=== PATIENT | male | born 1940 | race Caucasian/White ===

== ENCOUNTER → 2018-02-10 09:31 | Outpatient (CLI) | payer MEDICARE, SELFPAY | PROVIDERS: PCP Emergency Medicine; Visit Provider Orthopaedic Surgery | DX: M17.11 Unilateral primary osteoarthritis, right knee (principal) | CPT/HCPCS: 20610; 99213; J1040 ==

== ENCOUNTER 2018-03-18 12:12 | Outpatient (CLI) | payer MEDICARE, SELFPAY ==
[2018-03-18 13:23] LABS: INR 3.1 (1.0-3.5); Prothrombin Time 29.4 sec (9.3-10.8)
== END 2018-03-18 12:32 ==
PROVIDERS: PCP Emergency Medicine; Visit Provider Emergency Medicine
DX: I48.91 Unspecified atrial fibrillation (principal); Z79.01 Long term (current) use of anticoagulants
CPT/HCPCS: 36415; 85610

== ENCOUNTER 2018-04-25 09:17 | Outpatient (CLI) | payer MEDICARE, SELFPAY ==
[2018-04-25 13:57] LABS: INR 3.5 (1.0-3.5); Prothrombin Time 32.3 sec (9.3-10.8)
== END 2018-04-25 09:37 ==
PROVIDERS: PCP Emergency Medicine; Visit Provider Emergency Medicine
DX: I48.91 Unspecified atrial fibrillation (principal); Z79.01 Long term (current) use of anticoagulants
CPT/HCPCS: 36415; 85610

== ENCOUNTER 2018-05-02 01:54 | Outpatient (CLI) | payer MEDICARE, SELFPAY ==
[2018-05-02 11:15] LABS: INR 2.4 (1.0-3.5); Prothrombin Time 22.4 sec (9.3-10.8)
== END 2018-05-02 02:14 ==
PROVIDERS: PCP Emergency Medicine; Visit Provider Emergency Medicine
DX: I48.91 Unspecified atrial fibrillation (principal); Z79.01 Long term (current) use of anticoagulants
CPT/HCPCS: 36415; 85610

== ENCOUNTER → 2018-05-12 08:49 | Outpatient (BNVA) | payer MEDICARE, SELFPAY | PROVIDERS: PCP Emergency Medicine; Visit Provider Orthopaedic Surgery | DX: M17.11 Unilateral primary osteoarthritis, right knee (principal) | CPT/HCPCS: 20610; 99211; 99213; J1040 ==

== ENCOUNTER 2018-05-30 01:27 | Outpatient (CLI) | payer MEDICARE, SELFPAY ==
[2018-05-30 11:21] LABS: INR 1.4 (1.0-3.5); Prothrombin Time 13.7 sec (9.3-10.8)
== END 2018-05-30 01:47 ==
PROVIDERS: PCP Emergency Medicine; Visit Provider Emergency Medicine
DX: I48.91 Unspecified atrial fibrillation (principal); Z79.01 Long term (current) use of anticoagulants
CPT/HCPCS: 36415; 85610

== ENCOUNTER 2018-06-06 02:32 | Outpatient (CLI) | payer MEDICARE, SELFPAY ==
[2018-06-06 13:48] LABS: INR 1.3 (1.0-3.5); Prothrombin Time 12.8 sec (9.3-10.8)
== END 2018-06-06 02:52 ==
PROVIDERS: PCP Emergency Medicine; Visit Provider Emergency Medicine
DX: I48.91 Unspecified atrial fibrillation (principal); Z79.01 Long term (current) use of anticoagulants
CPT/HCPCS: 36415; 85610

== ENCOUNTER 2018-06-10 02:13 | Outpatient (CLI) | payer MEDICARE, SELFPAY ==
[2018-06-10 12:45] LABS: INR 2.7 (1.0-3.5); Prothrombin Time 27.5 sec (9.3-11.0)
== END 2018-06-10 02:33 ==
PROVIDERS: PCP Emergency Medicine; Visit Provider Emergency Medicine
DX: I48.91 Unspecified atrial fibrillation (principal); Z79.01 Long term (current) use of anticoagulants
CPT/HCPCS: 36415; 85610

== ENCOUNTER 2018-07-05 02:05 | Outpatient (CLI) | payer MEDICARE, SELFPAY | END 2018-07-05 02:25 | PROVIDERS: PCP Emergency Medicine; Visit Provider Emergency Medicine | DX: I48.91 Unspecified atrial fibrillation (principal); Z79.01 Long term (current) use of anticoagulants | CPT/HCPCS: 36415; 85610 ==

== ENCOUNTER 2018-07-08 01:01 | Outpatient (CLI) | payer MEDICARE, SELFPAY ==
[2018-07-08 11:45] LABS: Prothrombin Time 12.5 sec (9.3-11.0)
[2018-07-08 11:58] LABS: INR 1.2 (0.9-1.1)
== END 2018-07-08 01:21 ==
PROVIDERS: PCP Emergency Medicine; Visit Provider Emergency Medicine
DX: I48.91 Unspecified atrial fibrillation (principal); Z79.01 Long term (current) use of anticoagulants
CPT/HCPCS: 36415; 85610

== ENCOUNTER 2018-07-15 01:37 | Outpatient (CLI) | payer MEDICARE, SELFPAY ==
[2018-07-15 13:03] LABS: INR 1.6 (0.9-1.1); Prothrombin Time 16.1 sec (9.3-11.0)
== END 2018-07-15 01:57 ==
PROVIDERS: PCP Emergency Medicine; Visit Provider Emergency Medicine
DX: I48.91 Unspecified atrial fibrillation (principal); Z79.01 Long term (current) use of anticoagulants
CPT/HCPCS: 36415; 85610

== ENCOUNTER 2018-07-22 01:13 | Outpatient (CLI) | payer MEDICARE, SELFPAY ==
[2018-07-22 12:02] LABS: Prothrombin Time 25.7 sec (9.3-11.0)
[2018-07-22 12:08] LABS: INR 2.5 (0.9-1.1)
== END 2018-07-22 01:33 ==
PROVIDERS: PCP Emergency Medicine; Visit Provider Emergency Medicine
DX: I48.91 Unspecified atrial fibrillation (principal); Z79.01 Long term (current) use of anticoagulants
CPT/HCPCS: 36415; 85610

== ENCOUNTER 2018-08-05 01:38 | Outpatient (CLI) | payer MEDICARE, SELFPAY ==
[2018-08-05 11:41] LABS: INR 3.3 (0.9-1.1); Prothrombin Time 33.9 sec (9.3-11.0)
== END 2018-08-05 01:58 ==
PROVIDERS: PCP Emergency Medicine; Visit Provider Emergency Medicine
DX: I48.91 Unspecified atrial fibrillation (principal); Z79.01 Long term (current) use of anticoagulants
CPT/HCPCS: 36415; 85610

== ENCOUNTER → 2018-08-11 13:20 | Outpatient (BNVA) | payer MEDICARE, SELFPAY | PROVIDERS: PCP Emergency Medicine; Referring Provider Emergency Medicine; Visit Provider Orthopaedic Surgery | DX: M17.11 Unilateral primary osteoarthritis, right knee (principal) | CPT/HCPCS: 20610; 99211; 99213; J1040 ==

== ENCOUNTER 2018-08-12 03:05 | Outpatient (CLI) | payer MEDICARE, SELFPAY | END 2018-08-12 03:25 | PROVIDERS: PCP Emergency Medicine; Visit Provider Emergency Medicine | DX: I48.91 Unspecified atrial fibrillation (principal); Z79.01 Long term (current) use of anticoagulants | CPT/HCPCS: 36415; 85610 ==

== ENCOUNTER 2018-09-09 02:25 | Outpatient (CLI) | payer MEDICARE, SELFPAY ==
[2018-09-09 13:41] LABS: INR 2.6 (0.9-1.1); Prothrombin Time 25.9 sec (9.3-11.0)
== END 2018-09-09 02:45 ==
PROVIDERS: PCP Emergency Medicine; Visit Provider Emergency Medicine
DX: I48.91 Unspecified atrial fibrillation (principal); Z79.01 Long term (current) use of anticoagulants
CPT/HCPCS: 36415; 85610

== ENCOUNTER 2018-10-10 01:49 | Outpatient (CLI) | payer MEDICARE, SELFPAY ==
[2018-10-10 12:38] LABS: INR 3.7 (0.9-1.1); Prothrombin Time 37.5 sec (9.3-11.0)
== END 2018-10-10 02:09 ==
PROVIDERS: PCP Emergency Medicine; Visit Provider Emergency Medicine
DX: I48.91 Unspecified atrial fibrillation (principal); Z79.01 Long term (current) use of anticoagulants
CPT/HCPCS: 36415; 85610

== ENCOUNTER 2018-10-17 01:56 | Outpatient (CLI) | payer MEDICARE, SELFPAY ==
[2018-10-17 11:39] LABS: INR 3.3 (0.9-1.1); Prothrombin Time 33.4 sec (9.3-11.0)
== END 2018-10-17 02:16 ==
PROVIDERS: PCP Emergency Medicine; Visit Provider Emergency Medicine
DX: I48.91 Unspecified atrial fibrillation (principal); Z79.01 Long term (current) use of anticoagulants
CPT/HCPCS: 36415; 85610

== ENCOUNTER 2018-10-24 02:21 | Outpatient (CLI) | payer MEDICARE, SELFPAY ==
[2018-10-24 11:39] LABS: INR 2.4 (0.9-1.1); Prothrombin Time 24.1 sec (9.3-11.0)
== END 2018-10-24 02:41 ==
PROVIDERS: PCP Emergency Medicine; Visit Provider Emergency Medicine
DX: I48.91 Unspecified atrial fibrillation (principal); Z79.01 Long term (current) use of anticoagulants
CPT/HCPCS: 36415; 85610

== ENCOUNTER 2018-11-07 01:23 | Outpatient (CLI) | payer MEDICARE, SELFPAY ==
[2018-11-07 11:13] LABS: INR 1.9 (0.9-1.1); Prothrombin Time 18.9 sec (9.3-11.0)
== END 2018-11-07 01:43 ==
PROVIDERS: PCP Emergency Medicine; Visit Provider Emergency Medicine
DX: I48.91 Unspecified atrial fibrillation (principal); Z79.01 Long term (current) use of anticoagulants
CPT/HCPCS: 36415; 85610

== ENCOUNTER → 2018-11-10 09:34 | Outpatient (BNVA) | payer MEDICARE, SELFPAY | PROVIDERS: PCP Emergency Medicine; Referring Provider Emergency Medicine; Visit Provider Orthopaedic Surgery | DX: M17.11 Unilateral primary osteoarthritis, right knee (principal) | CPT/HCPCS: 20610; 99211; 99212; J1040 ==

== ENCOUNTER 2018-11-22 02:34 | Outpatient (CLI) | payer MEDICARE, SELFPAY ==
[2018-11-22 11:27] LABS: INR 2.2 (0.9-1.1); Prothrombin Time 21.7 sec (9.3-11.0)
== END 2018-11-22 02:54 ==
PROVIDERS: PCP Emergency Medicine; Visit Provider Emergency Medicine
DX: I48.91 Unspecified atrial fibrillation (principal); Z79.01 Long term (current) use of anticoagulants
CPT/HCPCS: 36415; 85610

== ENCOUNTER 2018-12-01 11:15 | Outpatient (CLI) | payer MEDICARE, SELFPAY ==
[2018-12-01 12:02] VITALS: BP 129/78; PULSE 52; RESP 22; TEMP 37.5; O2SAT 96
[2018-12-01 12:13] LABS: INR 1.1 (0.9-1.1); Prothrombin Time 10.7 sec (9.3-11.0)
[2018-12-01] MEDS: Omnipaque 240 MG/ML 50 ML BTL IJ (13:14)
--- NOTE | 2018-12-01 13:15 | DI.RAD_ITS ---
SYMPTOMS/DIAGNOSIS: SACROILIAC JOINT DYSFUNCTION PAIN CLINIC: Fluoroscopy Time: 22.8 sec, 8.06 mGy. Fluoroscopy was utilized by Dr. Oro during the performance of a right sacroiliac joint injection. Please refer to the procedure report for complete details.
[2018-12-01] MEDS: methylPREDNISolone ACETATE 80 MG/ML VIAL IJ (13:16)
[2018-12-01 13:17] VITALS: BP 137/80; PULSE 69; RESP 15; O2SAT 98
--- NOTE | 2018-12-01 13:17 | PDOC.PAIN ---
Pain Clinic Procedure Note Current Active Problems Problem Status Onset Sacroiliac joint dysfunction of both sides Acute INTRA-ARTICULAR SI JOINT INJECTION JASWANT CASAREZ has been referred to the [facility] for intra-articular SI joint injection. COMMENTS: I did review the notes from our clinic (Ms. Lamas) from 11/08/18). VAS is 6/10 prior to the procedure. Patient was interviewed and the medical record reviewed. There were no medical, pharmacologic, radiographic or other structural contraindications to attempting fluoroscopically guided intra-articular SI joint injection. Risks and expected side effects as well as potential benefit of the procedure were reviewed and voiced concerns addressed. The printed consent form was signed and witnessed. Standard time-out procedure was performed. Patient was placed in the prone position on the fluoroscopy table and automated blood pressure cuff and pulse oximeter applied. The skin entry point for approaching bilateral SI joints was identified under the most advantageous fluoroscopic view and marked. Following thorough Chlorhexadine preparation of the skin and draping and 1% lidocaine infiltration of the skin entry point and subcutaneous tissues, a 22 gauge spinal needle was placed under fluoroscopic guidance into the bilateral SI joints was identified under the most advantageous fluoroscopic view and marked. Following thorough Chlorhexadine preparation of the skin and draping and 1% lidocaine infiltration of the skin entry point and subcutaneous tissues, a 22 gauge spinal needle was placed under fluoroscopic guidance into bilateral SI joints. Intra-articular placement was confirmed by a clear arthrogram resulting from the injection of 0.25ml Omnipaque 240, 1ml 1% lidocaine, and 40mg Depomedrol were injected intra-articularily into each joint with an initial reproduction of a significant component of the usual pain. Vital signs were stable throughout the procedure and were as recorded in the docflowsheet by the nursing staff. If given, dosages of intravenous drugs for anxiolysis and analgesia were documented in MAR. Follow up plans and appointments were discussed with the patient. Post procedure instruction was given as documented in nursing documentation and having met discharge criteria, and was discharged from the [facility]. COMMENTS: VAS was 0/10 after the procedure. CC: Twan Mcgovern DO
== END 2018-12-01 11:35 ==
PROVIDERS: PCP Emergency Medicine; Visit Provider Preventive Medicine Occupational Medicine
DX: Z79.01 Long term (current) use of anticoagulants (principal); M53.3 Sacrococcygeal disorders, not elsewhere classified
CPT/HCPCS: 27096 ×2; 72200; 85610; J1040; Q9967

== ENCOUNTER 2018-12-08 02:13 | Outpatient (CLI) | payer MEDICARE, SELFPAY ==
[2018-12-08 11:15] LABS: Prothrombin Time 13.5 sec (9.3-11.0)
[2018-12-08 11:16] LABS: INR 1.3 (0.9-1.1)
== END 2018-12-08 02:33 ==
PROVIDERS: PCP Emergency Medicine; Visit Provider Emergency Medicine
DX: I48.91 Unspecified atrial fibrillation (principal); Z79.01 Long term (current) use of anticoagulants
CPT/HCPCS: 36415; 85610

== ENCOUNTER 2018-12-12 02:08 | Outpatient (CLI) | payer MEDICARE, SELFPAY ==
[2018-12-12 11:05] LABS: INR 1.6 (0.9-1.1); Prothrombin Time 16.1 sec (9.3-11.0)
== END 2018-12-12 02:28 ==
PROVIDERS: PCP Emergency Medicine; Visit Provider Emergency Medicine
DX: I48.91 Unspecified atrial fibrillation (principal); Z79.01 Long term (current) use of anticoagulants
CPT/HCPCS: 36415; 85610

== ENCOUNTER 2018-12-16 02:24 | Outpatient (CLI) | payer MEDICARE, SELFPAY ==
[2018-12-16 11:32] LABS: INR 1.6 (0.9-1.1); Prothrombin Time 16.2 sec (9.3-11.0)
== END 2018-12-16 02:44 ==
PROVIDERS: PCP Emergency Medicine; Visit Provider Emergency Medicine
DX: I48.91 Unspecified atrial fibrillation (principal); Z79.01 Long term (current) use of anticoagulants
CPT/HCPCS: 36415; 85610

== ENCOUNTER 2018-12-23 02:03 | Outpatient (CLI) | payer MEDICARE, SELFPAY ==
[2018-12-23 11:31] LABS: INR 1.7 (0.9-1.1); Prothrombin Time 17.2 sec (9.3-11.0)
== END 2018-12-23 02:23 ==
PROVIDERS: PCP Emergency Medicine; Visit Provider Emergency Medicine
DX: I48.91 Unspecified atrial fibrillation (principal); Z79.01 Long term (current) use of anticoagulants
CPT/HCPCS: 36415; 85610

== ENCOUNTER 2018-12-28 14:11 | Emergency (ER) | payer MEDICARE, SELFPAY ==
[2018-12-28 14:18] VITALS: BP 157/87; PULSE 64; RESP 16; TEMP 36.6; O2SAT 95
--- NOTE | 2018-12-28 14:41 | DI.RAD_ITS ---
SYMPTOMS/DIAGNOSIS: PAIN S/P FALL RIGHT KNEE: Medial tibiofemoral joint space narrowing is demonstrated. There is mild periarticular hypertrophic spurring and evidence of chondrocalcinosis. Also, there is an apparent small joint effusion. SUMMARY: Findings consistent with moderate DJD. There is no evidence of a fracture or dislocation.
--- NOTE | 2018-12-28 14:47 | ED.GENADUL_ITS ---
Discharge Plan Disposition Patient Disposition: HOME Condition: Improving Discharge Details Chief Complaint: Orthopedic Clinical Impression: Strain of right knee, Osteoarthritis of knee Primary Care Provider: Twan Mcgovern ED Provider: Buddy Acosta Home Meds and New Rx's Prescriptions: Continued acetaminophen 650 MG tablet extended release 1,300 mg PO Q8H PRN PRNRF: 0 hydrochlorothiazide 25 MG tablet 25 mg PO DAILY Qty: 90 RF: 4 tramadol 50 mg tablet 50 mg PO DAILY PRN (Reason: pain) Qty: 30 RF: 2 finasteride [Proscar] 5 mg tablet 5 mg PO QAM Qty: 90 RF: 3 pravastatin 40 mg tablet 40 mg PO DAILY Qty: 90 RF: 3 warfarin 2.5 mg tablet 2.5 mg PO DIRECTED Qty: 180 RF: 4 metoprolol tartrate 50 mg tablet 25 mg PO BID Qty: 90 RF: 3 gabapentin 300 mg capsule 300 mg PO BID Qty: 100 RF: 6 Discharge Instructions Instructions: Swollen Knee Joint (ED) Additional Instructions: Follow-up with Dr. Jin in clinic as planned. Aldo bandage for compression and stability. Remove and elevate the leg and apply ice to reduce pain and swelling. Tylenol as needed for pain. Return for worsening discomfort or any other acute concern Medical Decision Making 78-year-old male who states that he stepped down off of his boat, missing a step, fell approximately 2 feet on an extended right lower extremity. He suffered immediate right knee pain. States he has osteoarthritic changes and plans for a knee replacement with Dr. Jin. He presents today for evaluation of the pain and to rule out fracture. Patient is well-appearing and his exam is otherwise reassuring. Does have mild diffuse tenderness of the right knee. Referred for x-ray which reveals osteoarthritis, no acute fracture. Patient is amatory with cane. He has pre- standing follow-up with Dr. Jin. Consistent with a knee strain and the patient is appropriate for discharge with follow-up in orthopedics. HPI General Mode of arrival: ambulatory . Date/Time Provider Initiated Documentation: 12/28/18 14:30 . Limitations to Documentation: no limitations . Information obtained by: patient . History of Present Illness 78 year old M presents to the emergency department with the chief complaint of Right knee pain after fall, described as moderate, Quality is described as dull, and is localized to the right and lower extremity. Patient reports no radiation. Patient started experiencing this hour(s) and it has been constant. Rest improves symptom(s), Movement worsens symptoms . Patient notes no other symptoms.. Patient did receive the following treatments prior to arrival, none Related Data Home Medications Medication Instructions Recorded Confirmed acetaminophen 1,300 mg PO Q8H PRN PRN tab 11/15/17 12/28/18 hydrochlorothiazide 25 mg PO DAILY #90 tab 01/12/18 12/28/18 tramadol 50 mg tablet 50 mg PO DAILY PRN #30 tab-cap 05/31/18 12/28/18 finasteride 5 mg tablet 5 mg PO QAM #90 tab 06/07/18 12/28/18 pravastatin 40 mg tablet 40 mg PO DAILY #90 tab 07/05/18 12/28/18 warfarin 2.5 mg tablet 2.5 mg PO DIRECTED #180 tab 07/08/18 12/28/18 metoprolol tartrate 50 mg tablet 25 mg PO BID #90 tab 10/25/18 12/28/18 gabapentin 300 mg capsule 300 mg PO BID #100 tab-cap 11/09/18 12/28/18 Previous Rx's Medication Instructions Recorded hydrochlorothiazide 25 mg PO DAILY #90 tab 01/12/18 tramadol 50 mg tablet 50 mg PO DAILY PRN #30 tab-cap 05/31/18 finasteride 5 mg tablet 5 mg PO QAM #90 tab 06/07/18 pravastatin 40 mg tablet 40 mg PO DAILY #90 tab 07/05/18 warfarin 2.5 mg tablet 2.5 mg PO DIRECTED #180 tab 07/08/18 metoprolol tartrate 50 mg tablet 25 mg PO BID #90 tab 10/25/18 gabapentin 300 mg capsule 300 mg PO BID #100 tab-cap 11/09/18 Allergies Allergy/AdvReac Type Severity Reaction Status Date / Time tamsulosin HCl [From Flomax] AdvReac dizzy Verified 12/28/18 14:22 General Stated Complaint: Orthopedic ARIK: 4 Review of Systems Review of Systems 6 systems reviewed and otherwise neg [facility] Medical History Afib Arcus senilis BPH (benign prostatic hyperplasia) Carpal tunnel syndrome of right wrist Chronically dry eyes Coronary artery disease with angina pectoris Elevated PSA Hematuria Hemorrhoids Left knee DJD Myositis Peripheral neuropathy Sexual dysfunction Tremor of both hands Varicose veins of lower extremity Surgical History Amputation Colonoscopy - MAC 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 Brother No problems noted. Son No problems noted. Daughter No problems noted. Social History Smoking/Tobacco Use Status: Former Tobacco Use Alcohol Intake: current Alcohol Intake frequency: holidays/special occasions only Drug use: Never Household members: spouse Housing: house Number of Children: 3 current occupation: retired What is your relationship status?: Panel score (0-1 are the most socially isolated patients): 1 What type of physical activity do you participate in: none Exam Narrative Exam Narrative: GEN: awake, alert, oriented 3. Pleasant, well groomed, interactive. HEAD: Normocephalic, atraumatic ENT: Mucous membranes moist, oropharynx unremarkable, External ear exam unremarkable EYES: PERRL, EOMI NECK: Full ROM, no OPAL, no menigismus EXT: Right knee grossly swollen, diffusely tender. Motor 5 out of 5 in bilateral lower extremity. Sensation is intact throughout. Neuro: Grossly normal neurologic exam, conversant, interactive. Psych: Speech fluent, thoughts congruent, affect normal Course Vital Signs Temperature 36.6 C 12/28/18 14:18 Pulse 64 12/28/18 14:18 Respiratory Rate 16 12/28/18 14:18 Blood Pressure 157/87 H 12/28/18 14:18 Pulse Oximetry 95 12/28/18 14:18 Temperature 36.6 C 12/28/18 14:18 Temperature Source Skin 12/28/18 14:18 Pulse 64 12/28/18 14:18 Respiratory Rate 16 12/28/18 14:18 Respiratory Effort Non-Labored 12/28/18 14:18 Blood Pressure 157/87 H 12/28/18 14:18 Blood Pressure Position Sitting 12/28/18 14:18 Pulse Oximetry 95 12/28/18 14:18 Oxygen Delivery Method Room Air 12/28/18 14:18 Oxygen Flow Rate 0 12/28/18 14:18 Pain Level 10 12/28/18 14:18
[2018-12-28 15:42] VITALS: BP 157/87; PULSE 64; RESP 16; O2SAT 95
== END 2018-12-28 15:43 | disposition home or self-care (01) ==
PROVIDERS: Emergency Provider Emergency Medicine; PCP Emergency Medicine
DX: S83.91XA Sprain of unspecified site of right knee, initial encounter (principal); M17.11 Unilateral primary osteoarthritis, right knee; V93.39XA Fall on board unspecified watercraft, initial encounter
CPT/HCPCS: 99283; 73564

== ENCOUNTER 2019-01-06 02:20 | Outpatient (CLI) | payer MEDICARE, SELFPAY ==
[2019-01-06 13:03] LABS: Prothrombin Time 20.6 sec (9.3-11.0)
== END 2019-01-06 02:40 ==
PROVIDERS: PCP Emergency Medicine; Visit Provider Emergency Medicine
DX: I48.91 Unspecified atrial fibrillation (principal); Z79.01 Long term (current) use of anticoagulants
CPT/HCPCS: 36415; 85610

== ENCOUNTER 2019-02-08 08:12 | Outpatient (CLI) | payer MEDICARE, SELFPAY ==
[2019-02-08 12:36] LABS: Prothrombin Time 24.7 sec (9.3-11.0)
[2019-02-08 12:40] LABS: INR 2.4 (0.9-1.1)
== END 2019-02-08 08:32 ==
PROVIDERS: PCP Emergency Medicine; Visit Provider Emergency Medicine
DX: I48.91 Unspecified atrial fibrillation (principal); Z79.01 Long term (current) use of anticoagulants
CPT/HCPCS: 36415; 85610

== ENCOUNTER → 2019-02-09 10:52 | Outpatient (BNVA) | payer MEDICARE, SELFPAY | PROVIDERS: PCP Emergency Medicine; Referring Provider Emergency Medicine; Visit Provider Orthopaedic Surgery | DX: M17.11 Unilateral primary osteoarthritis, right knee (principal) | CPT/HCPCS: 20610; 99211; 99213; J1040 ==

== ENCOUNTER 2019-03-09 02:30 | Outpatient (CLI) | payer MEDICARE, SELFPAY ==
[2019-03-09 10:37] LABS: INR 1.9 (0.9-1.1); Prothrombin Time 19.5 sec (9.3-11.0)
== END 2019-03-09 02:50 ==
PROVIDERS: PCP Emergency Medicine; Visit Provider Emergency Medicine
DX: I48.91 Unspecified atrial fibrillation (principal); Z79.01 Long term (current) use of anticoagulants
CPT/HCPCS: 36415; 85610

== ENCOUNTER → 2019-03-13 09:06 | Outpatient (BNVA) | payer MEDICARE, SELFPAY | PROVIDERS: PCP Emergency Medicine; Referring Provider Emergency Medicine; Visit Provider Student in an Organized Health Care Education/Training Program | DX: M17.11 Unilateral primary osteoarthritis, right knee (principal); Z98.890 Other specified postprocedural states; Z95.818 Presence of other cardiac implants and grafts; Z79.01 Long term (current) use of anticoagulants | CPT/HCPCS: 99213 ==

== ENCOUNTER 2019-04-04 08:16 | Outpatient (CLI) | payer MEDICARE, SELFPAY ==
[2019-04-04 11:29] LABS: Prothrombin Time 19.8 sec (9.3-11.0)
== END 2019-04-04 08:36 ==
PROVIDERS: PCP Emergency Medicine; Visit Provider Emergency Medicine
DX: I48.91 Unspecified atrial fibrillation (principal); Z79.01 Long term (current) use of anticoagulants
CPT/HCPCS: 36415; 85610

== ENCOUNTER 2019-04-19 07:00 | Outpatient (CLI) | payer MEDICARE, SELFPAY ==
[2019-04-19 13:18] LABS: BUN 18 mg/dL (7-18); CREATININE 1.01 mg/dL (0.70-1.30); Calcium 9.1 mg/dL (8.5-10.1); Calculated LDL 68 mg/dL; Chloride 103 mmol/L (98-107); Cholesterol 159 mg/dL (50-200); Glucose 86 mg/dL (70-100); HDL Cholesterol 55 mg/dL (40-60); Potassium 4.1 mmol/L (3.5-5.1); Sodium 141 mmol/L (136-145); Triglyceride 181 mg/dL (30-150)
[2019-04-19 13:48] LABS: Hemoglobin A1C 5.8 % (4.5-6.2)
== END 2019-04-19 07:20 ==
PROVIDERS: PCP Emergency Medicine; Visit Provider Emergency Medicine
DX: I25.119 Atherosclerotic heart disease of native coronary artery with unspecified angina pectoris (principal); E11.9 Type 2 diabetes mellitus without complications; Z01.818 Encounter for other preprocedural examination
CPT/HCPCS: 36415; 80048; 80061; 83036

== ENCOUNTER → 2019-04-27 10:29 | Outpatient (BNVA) | payer MEDICARE, SELFPAY | PROVIDERS: PCP Emergency Medicine; Referring Provider Emergency Medicine; Visit Provider Psychiatry & Neurology Neurology | DX: M79.671 Pain in right foot (principal); R42 Dizziness and giddiness; E53.8 Deficiency of other specified B group vitamins; I10 Essential (primary) hypertension | CPT/HCPCS: 99205; 99215 ==

== ENCOUNTER 2019-05-03 02:41 | Outpatient (CLI) | payer MEDICARE, SELFPAY ==
[2019-05-03 13:02] LABS: INR 2.6 (0.9-1.1); Prothrombin Time 25.9 sec (9.3-11.0)
== END 2019-05-03 03:01 ==
PROVIDERS: PCP Emergency Medicine; Visit Provider Emergency Medicine
DX: I48.91 Unspecified atrial fibrillation (principal); Z79.01 Long term (current) use of anticoagulants
CPT/HCPCS: 36415; 85610

== ENCOUNTER 2019-05-12 10:11 | Outpatient (CLI) | payer MEDICARE, SELFPAY ==
[2019-05-12 11:52] LABS: HCT 46.2 % (40.0-50.0); HGB 15.4 g/dL (13.5-17.5); Mean Corp. HGB Concentration 33.3 g/dL (32.0-36.0); Mean Corpuscular Hemoglobin 28.6 pg (27.0-33.0); Mean Corpuscular Volume 85.9 fL (80-95); Mean Platelet Volume 9.8 fL (8.0-11.0); Platelet Count 310 x1000/uL (130-400); RBC 5.38 m/cumm (4.50-6.00); RBC Distribution Width 13.7 % (11.8-14.1)
== END 2019-05-12 10:31 ==
PROVIDERS: PCP Emergency Medicine; Visit Provider Student in an Organized Health Care Education/Training Program
DX: M25.561 Pain in right knee (principal); M17.11 Unilateral primary osteoarthritis, right knee; Z01.818 Encounter for other preprocedural examination; I10 Essential (primary) hypertension; I25.10 Atherosclerotic heart disease of native coronary artery without angina pectoris; Z01.812 Encounter for preprocedural laboratory examination
CPT/HCPCS: 36415; 85027

== ENCOUNTER → 2019-05-17 07:57 | Outpatient (BNVA) | payer MEDICARE, SELFPAY | PROVIDERS: PCP Emergency Medicine; Referring Provider Emergency Medicine; Visit Provider Student in an Organized Health Care Education/Training Program | DX: R69 Illness, unspecified (principal) ==

== ENCOUNTER 2019-05-17 08:13 | Inpatient (IN) | payer MEDICARE, SELFPAY ==
--- NOTE | 2019-05-12 11:51 | DSU.FORM ---
05/12/19 11 am No anesthesia available to speak with patient. Will be seen DOS.
[2019-05-17] VITALS (14 sets, daily range): BP systolic 100–140; BP diastolic 47–81; PULSE 55–76; RESP 11–18; TEMP 35.3–37.1; O2SAT 94–98
[2019-05-17] MEDS: Lactated Ringers 1,000 ML 80 ML IV ×2 (09:07→11:54)
[2019-05-17] MEDS: Celecoxib 200 MG CAP 400 MG PO (09:37)
[2019-05-17] MEDS: Acetaminophen 500 MG TAB 1000 MG PO ×2 (09:38→20:15)
[2019-05-17 10:23] LABS: INR 1.1 (0.9-1.1); Prothrombin Time 11.2 sec (9.3-11.0)
[2019-05-17] MEDS: ceFAZolin 2 GM/50 ML BAG IVPB (11:12)
[2019-05-17] MEDS: Ketorolac 30 MG/ML VIAL (11:40)
[2019-05-17] MEDS: Bupivacaine 0.25% Pres-Free 30 ML VIAL (11:40)
[2019-05-17] MEDS: Bupivacaine LIPOSOME/PF 133 MG/10 ML VIAL IJ (11:41)
[2019-05-17] MEDS: Normal Saline 20 ML VIAL (11:41)
--- NOTE | 2019-05-17 13:35 | W.PM.OP ---
Date of service: 05/17/19 Time of Service: 13:35 Operative Note Operative Note DATE OF PROCEDURE: 05/17/19 PRE-OP DIAGNOSIS: Right Knee Osteoarthritis POST-OP DIAGNOSIS: same PROCEDURE: Right Total Knee Replacement SURGEON: Aneesh Fitzgerald CANAL BOAT CAPTAIN: Radha Quiñones ANESTHESIA: regional and spinal ESTIMATED BLOOD LOSS: 150 PATHOLOGY: none sent TOURNIQUET TIME: 33 COMPLICATIONS: None Patient was transported to: PACU Patient's condition: stable Implants: 1. Depuy Attune Posterior Stabilized Femoral Component, Size 7 2. Depuy Attune Fixed Platform Tibial Component, Size 7 3. Depuy Attune 7x8 Fixed, Stabilized Poly 4. Depuy Attune Patellar Component, Size 38 Indications: I have seen Julio Cesar in clinic for symptoms of RIGHT knee arthritis, confirmed with radiographic findings. Julio Cesar has exhausted nonoperative methods and was having significant limitations in daily function and desired better function and less pain. I discussed the technical details of a knee replacement. I explained the risks of the procedure to include, but not limited to, bleeding, infection, pain, stiffness, fracture, damage to nerves and vessels, damage to muscles and tendons, loosening, need for repeat procedure, blood clot and cardiopulmonary demise. Despite these risks, Julio Cesar elected to proceed. Findings: There was significant signs of arthritis throughout the knee. These were focus primarily over the medial aspect of the knee but there is also some patellofemoral arthritis and some milder lateral femoral chondromalacia. Procedure Description: Julio Cesar was greeted in the preoperative holding area where the correct side was identified and marked. The consent was reviewed with the patient and signed. The history and physical was updated. All questions were answered. Preoperative mediacations were administered: Acetaminophen 1000mg, Celebrex 400mg. An adductor canal block was then administered by the anesthesia team in the PACU. Julio Cesar was taken back to the operating room. A spinal anesthestic was then administered. The patient was placed into the supine position on the operating room table. A nonsterile tourniquet was placed high onto the leg but only used for cementing. Posts were placed for positioning during the procedure. All bony prominences were well padded. Prophylactic antibiotics in the form of Cefazolin were administered. 1g of Tranxemic Acid was given intravenously within 30 minutes of incision. The right leg was then prepped with Chloraprep and draped in a standard fashion with impervious stockinette. A second prep with Chloraprep was performed prior to application of Iodine impregnated skin protection. A timeout to confirm correct identity, side and site, procedure, allergies, anesthesia, and medical concerns was performed. With the knee in some flexion, a midline incision was made overlying the knee. Full thickness skin flaps were raised once the extensor mechanism was encountered. These were raised medially and laterally. Any bleeding was controlled with electrocautery. Once the extensor mechanism was fully exposed, a medial parapatellar arthrotomy was performed in a flexed position. All bleeding from the arthrotomy and the geniculate arteries was coagulated. A medial subperiosteal peel was performed with electrocautery to the midcoronal plane. The fat pad was removed while keeping the patellar tendon protected. The anterior distal femur synovium was removed for later visualization. The ACL and PCL were resected and the anterior horn of the lateral meniscus was transected. The knee was then flexed with the patella everted. Using a step drill, and based on preoperative templating, the femoral canal was entered. This was done with a step drill without any difficulty. The intramedullary distal femoral cut guide was inserted, set to a 5 degree valgus cut and 9mm cut thickness. There was some hypoplasia of the lateral femoral condyle and any remnant cartilage of the medial femoral condyle was removed for appropriate thickness. The distal femoral cut guide was then held in position and pinned. With the soft tissues protected, the distal cut was performed. This was passed over a few times to ensure a planar cut. I then turned attention to the tibia. The extramedullary guide was placed onto the leg. The distal aspect was slid medial to adjust for position of center of ankle and stay in line with shaft of the tibia. Approximately 3-5 degrees of posterior slope was kept in the proximal cutting guide. The center of the guide was aligned with the PCL. The stylus was used to assess cut thickness. The medial side, most involved side, was set for a 5mm cut, corresponding to 9mm on the lateral side. This was then held in position and pinned into place with 2 additional pins and a cross pin for stability. The medial and lateral collateral ligaments were protected and the cut was performed. With this completed, it was assessed and noted to be of appropriate dimensions. The guide was removed. A spacer block was inserted and the knee was brought into extension. The 7mm spacer block provided full extension, without hyperextension and with stability of both the medial and lateral collateral ligaments was assessed. The pins from the femur and the tibia were then removed. The distal femur was then sized. The anterior stylus was placed onto the lateral ridge of the anterior femur. This indicated a size 7 femur. The external rotation of the guide was adjusted to 5 degrees to match the epicondylar axis, perpendicular to Jair?s line. The 4-in-1 cutting guide was the placed. The posterior medial femur cut was evaluated and appeared of good thickness. The spacer block was inserted underneath the cutting guide and stability was confirmed in 90 degrees of flexion. An rebekah wing was used to confirm appropriate position of the anterior cut to avoid notching. This cutting guide was ensured to be flush on the cut surface and then pinned into place with headed pins. While protecting the soft tissues, quad tendon, and collateral ligaments, the anterior and posterior cuts were performed with a saw. The central two pins were removed and the posterior and anterior chamfers were cut next. The notch-cutting guide was placed. This was pinned to lateralize the femoral component as much as possible while keeping it flush on the cut surface. This was then pinned into position. A reciprocating saw was used to make the notch cut. A rasp smoothed the cut surfaces. A trial posterior stabilized femoral component was then inserted, impacted down to the cut surfaces, and the lug holes were drilled. A provisional trial tibial component was placed and the knee was brought through range of motion. The polyethylene was trialed until there was good flexion and extension with excellent stability to the medial and lateral collaterals. The patella was tracking without thumbs. The tibial cut surface was fully exposed. The medial and lateral menisci were removed. The tibia was then sized as a 7. The tibia had been previously marked during trialing to correspond to the center of the tibial component to help with rotation. The trial was aligned to this gerardo, approximately rotated to the medial 1/3rd of the tibial tubercle. The trial was pinned into place. The tibia was prepared with a reamer and a keel punch. The knee was then brought into extension and the patella was measured as 26mm. Using the patellar clamp and cut guide, this was resected to a flat surface with at least 13mm of thickness remaining. The size 38 patella fit the best. This was oriented and then clamped into position. The lugs were drilled. The trial components were removed. The final components, except for the polyethylene were opened on the back table. The periosteal and capsular tissues, especially posteriorly, around the knee were then systematically injected with a periarticular cocktail consisting of 50cc 0.25% Marcaine, 30mg Ketorolac, 20cc of Exparal and 50cc of injectable saline. The tourniquet was then inflated to 275mmHg. The knee was thoroughly irrigated with a pulse lavage and dried. On the back table, with the implants opened, the cement was mixed. 2 batches of antibiotic laden cement were prepared with vacuum assistance. After the cement was ready a small amount was placed on to the back side of the tibial component at the keel. A small amount was placed onto the posterior flange of the femur. Cement was manual pressurized and impregnated into the cut surface of the tibia. The tibial component was then inserted into the cut surface and impacted into position. Excess cement was removed and the component was reimpacted. Again, excess cement was removed and our attention was then turned to the femur. The femoral cut surface was once again dried and cement was manually impacted into the cut surface. The femoral component was lined with the lug holes and impacted. Excess cement was removed. It was ensured to be down against the cut surface. The trial polyethylene was then inserted and the leg was brought out into full extension for the duration of the cement curing process, approximately 15min. Cement was lastly manually impacted into the cut surface of the patella and the patellar button was clamped into position and held. During this process attention was turned to the gutters of the knee and for all interfaces for any excess cement. While the cement was hardening, the knee was irrigated with Irrisept chlorhexadine solution. This was allowed to sit in the knee for 3 minutes. After the cement had finally cured, approximately 15min, the clamp was removed from the patella and the knee was taken through range of motion. A size 8mm polyethylene component provided the best range of motion and stability with less than 2mm gapping with medial and lateral stress and full extension without significant hyperextension. The patella was tracking with a no-thumbs technique. The trial poly was removed and once again the knee was checked for any loose, excess, or errant cement. The poly component was then inserted and impacted into position after cleaning and drying the tibial tray. The capsule was then reapproximated with a No. 1 Vicryl at multiple locations. The capsule was finally closed with a No. 2 Stratafix, barbed suture. The tourniquet was then released and the arthrotomy appeared watertight without significant bleeding. The second dosing of 1g TXA was started. Deep tissues were then reapproximated with 0 Vicryl and 2-0 Vicryl. The skin was closed with a running 3-0 Monocryl in a subcuticular fashion. This was reinforced with skin glue. A Mepilex silver dressing was applied along with a [id number] CARMELO wrap. A CryoCuff was applied. Julio Cesar was transferred to the hospital bed without difficulty an suffering no apparent complication. Julio Cesar has a good prognosis. Physical therapy will start today and without restrictions, weight-bearing as tolerated. He will resume Coumadin for DVT prophylaxis.
--- NOTE | 2019-05-17 14:45 | NUR.NOTE ---
Nursing Note: A&Ox3. VSS. Pt awake and alert. HR reg, LS clear, BS +, stallings patent. RLE wrapped in CARMELO, palpable pulse. able to wiggle toes, unable to lift leg at this time. denies pain. oriented to room and call system.
--- NOTE | 2019-05-17 15:55 | IN_ITS ---
Date of service: 05/17/19 Time of Service: 15:55 PT Notes Physical Therapy Inpatient Initial Evaluation Date: 05/18/2019 Referring Doctor: Aneesh Fitzgerald MD PT Orders: PT CONSULT: S/P Ortho surgery. S/P R TKA. Precautions: Fall. Standard. WBAT on R LE. Patient Profile/Admitting Diagnosis: Patient is a 79-year-old male patient who is S/P R total knee arthroplasty due to primary unilateral osteoarthritis of R knee. PMHX: Bilateral knee degenerative joint disease. Right hip degenerative joint disease. CAD with stent in 2000. Arcus senilis Chronic dry eye. Atrial fibrillation, anticoagulated with Warfarin. Benign prostatic hypertrophy. Hypertension. Hyperlipidemia. Social History/Home Situation: Patient lives with in a one-floor house with a ramp to enter. He states that he has learned from his other friends and has decidedly made his house handicap-accessible in preparation for this kne surgery. Patient is independent with all aspects of ADLs prior to surgery. 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 Equipment Owned/DME: FWW Subjective: Patient is pleasant and cooperative. He is agreeable to a PT consult. He reports tingling sensation on the R LE and the feeling of hi R leg wanting to fly during walking activity. He report discomfort on the back of the knee with ambulation activity. jonhn did not report any lightheadedness or sensation of room spinning throughout PT session. Objective: General Observation: Cryocuff on R knee. Convective temp management bear hugger' on upon arrival of PT as patient has mild hypothermia per nurse. CARMELO wraps on R knee. TEDS on L knee. Heredia catheter in place. IV in L UE. Mental Status: Alert and oriented x 4 Pain: 1/10 on popliteal area with ambulation Vital Signs: See nursing notes for temperature monitoring ROM: Right Upper Extremity: Shoulder Flexion WFL. Shoulder abduction WFL. Elbow flexion WFL. Wrist flexion WFL. Opening and closing of hand WFL. Left Upper Extremity: Shoulder Flexion WFL. Shoulder abduction WFL. Elbow flexion WFL. Wrist flexion WFL. Opening and closing of hand WFL. Right Lower Extremity: Hip flexion WFL. Hip abduction WFL. Knee flexion 0-110. Knee extension -5 degrees. Ankle dorsiflexion WFL. Ankle plantarflexion WFL. Left Lower Extremity: Hip flexion WFL. Hip abduction WFL. Knee flexion WFL. Ankle dorsiflexion WFL. Ankle plantarflexion WFL. Strength: Right Upper Extremity: Shoulder flexors 5/5. Shoulder abductors 5/5. Elbow flexors 5/5. Elbow extensors 5/5. Tax Record Clerk strong. Left Upper Extremity: Shoulder flexors 5/5. Shoulder abductors 5/5. Elbow flexors 5/5. Elbow extensors 5/5. Tax Record Clerk strong. Right Lower Extremity: Hip flexors 5/5. Hip abductors 5/5. Knee flexors 3-/5. Knee extensors 3-/5. Ankle dorsiflexors 5/5. Ankle plantarflexors 5/5. Left Lower Extremity:Hip flexors 5/5. Hip abductors 5/5. Knee flexors 5/5. Knee extensors 5/5. Ankle dorsiflexors 5/5. Ankle plantarflexors 5/5. Sensation: Intact as to pain and pressure on left lower extremity. Tingling sensation on R LE. Bed Mobility/Transfers: Rolling SBA Supine to sit SBA Sit to supine SBA Sit to stand minimal assist Stand to sit minimal assist Bed to chair minimal assist Chair to bed minimal assist Gait: Patient was able to tolerate 4 feet forward and 4 feet backward using the FWW with a sensation of being wobbly and his R leg feeling like it is wanting to fly. Patient required minimal assist and SBA of WEIGHT TRAINING INSTRUCTOR for safety during activi ty. He stated that he did not much have any control of his R leg. He was able to back up to bed and rest afterwards. He did become hypothermic and needed to be warmed up by the bear hugger again upon resumption of supine in bed. Balance: Static Sitting: Normal Dynamic Sitting: Normal Static Standing: Fair Dynamic Standing: Fair Special Tests: Mobility Limitations Standardized Measure [facility] 6 clicks Basic Mobility Inpatient Short Form: Raw Score:20 CMS Score: 36% deficit Informed Consent/Education: Patient instructed in purpose of PT consult and plan of care. Assessment: Patient is a 79-year-old male patient who is S/P R total knee arthroplasty due to primary unilateral osteoarthritis of R knee. Patient is pleasant and cooperative. He is motivated to return to his premorbid independent level. He has the support of his upon discharge. Obesity, vertigo, and temperature fluctuations are major limiting factors encountered at time of evaluation. Patient presents with clinical signs and symptoms consistent with current/admitting diagnoses that have resulted to mobility limitations, gait instability, generalized weakness, and impairment of motor control as demonstrated by the following impairment level findings: 1. Decreased strength to R LE major muscle groups 2. Impaired sitting/standing balance 3. Impaired activity tolerance 4. Limitation of joint range of motion in R knee Impairments are contributing to the following functional limitations: 1. Dependent bed mobility skills 2. Increased dependence with transfers 3. Inability to safely ambulate without assistive device and physical assistance 4. Increase completion time for mobility ADL performance 5. Increased fall risk 6. Inability to negotiate steps alone safely Patient is assessed as a 60012 moderate complexity based on the following: History: Patient is a 79-year-old male patient who is S/P R total knee arthroplasty due to primary unilateral osteoarthritis of R knee. Examination: Demonstrable impairment in strength, balance, and range of motion with underlying impairments and functional limitations as documented above Presentation:Evolving Decision Makin moderate complexity Goals: Goals X1 week 1. Supine-Sit independent 2. Sit-Supine independent 3. Sit-Stand independent 4. Stand-Sit independent 5. Bed-Chair independent 6. Chair-Bed independent 7. Independent gait on level surface with use of least restrictive device for at least 300 feet without report of pain nor dyspnea 8. Independent stair negotiation while holding onto bilateral rails for at least 10 steps without report of pain nor dyspnea 9. Independent with home exercise program 10. Good static and dynamic standing balance/tolerance Plan of Care/Treatment Plan: 1-2x/day, 7 days/week x 1 week. Plan of care has been reviewed with the POSTMASTER providing the service under Physical Therapy direction. Initiate Physical Therapy intervention for strengthening, bed mobility, transfers, gait, stairs, balance training, use of assistive device. DISCHARGE RECOMMENDATIONS: No equipment needs at this time may benefit from skilled physical therapy services according to orthopedic surgeon's timeline recommendations. Patient will be educated and trained on home exercise program per TKA exercise protocol in preparation for outpatient physical therapy services. TREATMENT CODE/TIME: 67004 x 20 minutes beginning at 15:55 PM. Thank you very much for this referral. Janie Barksdale PT, DPT, CLT [facility]
[2019-05-17] MEDS: ceFAZolin 1 GM/50 ML BAG IVPB (18:16)
[2019-05-17] MEDS: Metoprolol 25 MG TAB PO (20:16)
[2019-05-17] MEDS: Celecoxib 100 MG CAP PO (20:16)
[2019-05-17] MEDS: Gabapentin 300 MG CAP 600 MG PO (21:19)
[2019-05-18] MEDS: Lactated Ringers 1,000 ML 80 ML IV (00:40)
[2019-05-18] MEDS: ceFAZolin 1 GM/50 ML BAG IVPB ×2 (01:36→09:35)
[2019-05-18 03:36] VITALS: BP 109/68; PULSE 86; RESP 18; TEMP 36.6; O2SAT 94
[2019-05-18 06:54] LABS: INR 1.1 (0.9-1.1); Prothrombin Time 11.1 sec (9.3-11.0)
[2019-05-18 07:22] VITALS: BP 114/70; PULSE 53; RESP 17; TEMP 37; O2SAT 95
[2019-05-18] MEDS: Acetaminophen 500 MG TAB 1000 MG PO ×2 (08:07→13:30)
[2019-05-18] MEDS: Finasteride 5 MG TAB PO (08:08)
[2019-05-18] MEDS: hydroCHLOROthiazide 25 MG TAB PO (08:08)
[2019-05-18] MEDS: Pravastatin 40 MG TAB PO (08:08)
[2019-05-18] MEDS: Gabapentin 300 MG CAP PO (08:08)
[2019-05-18] MEDS: Metoprolol 25 MG TAB PO (08:09)
[2019-05-18] MEDS: Pantoprazole 40 MG TABCR PO (08:09)
[2019-05-18] MEDS: Celecoxib 100 MG CAP PO (08:09)
[2019-05-18 11:27] VITALS: BP 97/59; PULSE 57; RESP 17; TEMP 36.9; O2SAT 96
--- NOTE | 2019-05-18 12:09 | PT.INTREAT ---
Date of service: 05/18/19 Time of Service: 12:10 PT Notes Inpatient Physical Therapy Treatment Note [facility] Date: 05/18/2019 PRECAUTIONS: Fall, WBAT L SUBJECTIVE: Julio Cesar states that he feels he will be ready to return home today. He is agreeable to participating in PT this morning. OBJECTIVE: PAIN: No complaints of pain BED MOBILITY/TRANSFERS Supine-sit: I with HOB flat Sit-supine: I with HOB flat Sit-stand: S Stand-sit: S Bed?chair: S Chair?bed: S GAIT Assistive Device: FWW Weight bearing: WBAT R Assist: SBA Distance: 200' THEREX: Patient completed a lower extremity strengthening and stabilization program, in both seated and supine positions, as per flow sheet. ASSESSMENT: Patient tolerated session without complaint. He was able to tolerate a progression in gait distance with FWW support and SBA. PLAN: As per primary PT TREATMENT CODE/TIME: 25 minutes; 24144 x2, 88036
[2019-05-18 12:30] VITALS: BP 110/65; PULSE 56
--- NOTE | 2019-05-18 12:40 | W.PM.DS.N ---
Date of service: 05/18/19 Time of Service: 12:46 DS: Diagnosis Discharge Diagnosis (1) Primary osteoarthritis of both knees: Status: Chronic Discharge Plan Disposition Patient Disposition: HOME W/HOME HEALTH SERVICE Condition: Good Discharge Details Reason For Visit: RIGHT KNEE DJD Admit Date/Time: 05/17/19 08:13 Admit Provider: Aneesh Fitzgerald Attending Provider: Aneesh Fitzgerald Primary Care Provider: Twan Mcgovern Hospital Course Hospital Course: Patient was admitted to the medical/surgical floor following the procedure. It was tolerated well without any notable medical, surgical, or anesthetic complications. Mobilization began postoperatively. The stallings catheter was removed and voiding spontaneously. Vitals were stable. Physical therapy worked with the patient and was cleared for discharge home. No acute medical issues. Home Meds and New Rx's Prescriptions: New acetaminophen 500 mg tablet 1,000 mg PO Q8H PRN (Reason: pain) Qty: 90 RF: 3 pantoprazole 40 mg tablet,delayed release (DR/EC) 40 mg PO DAILY Qty: 30 RF: 0 enoxaparin 40 mg/0.4 mL syringe 40 mg SC DAILY Qty: 5 RF: 0 celecoxib 100 mg capsule 100 mg PO BID Qty: 60 RF: 0 Continued finasteride [Proscar] 5 mg tablet 5 mg PO QAM Qty: 90 RF: 3 pravastatin 40 mg tablet 40 mg PO DAILY Qty: 90 RF: 3 warfarin 2.5 mg tablet 2.5 mg PO DIRECTED Qty: 180 RF: 4 metoprolol tartrate 50 mg tablet 25 mg PO BID Qty: 90 RF: 3 gabapentin 300 mg capsule 300 mg PO BID Qty: 100 RF: 6 hydrochlorothiazide 25 mg tablet 25 mg PO DAILY Qty: 90 RF: 4 tramadol 50 mg tablet 25 - 50 mg PO Q4H PRN PRN (Reason: pain) Qty: 18 RF: 0 Discontinued acetaminophen 650 MG tablet extended release 1,300 mg PO Q8H PRN PRNRF: 0 tramadol 50 mg tablet 25 - 50 mg PO DAILY PRN (Reason: pain) RF: 0 Discharge Instructions Additional Instructions: Dr. Fitzgerald?s Total Knee Discharge Instructions Activity: The most important activity is to walk. You should try to take short walks a few times a day. It is important that when resting you work on keeping the knee straight. Avoid putting a pillow behind the knee as this will encourage flexion. Work on range of motion exercises as provided by Physical Therapy. - Start outpatient physical therapy within 2 weeks. - You should wear the DIANNA hose on both legs for 2 weeks. Dressing: Keep the surgical dressing in place for at least one week. After the first week it may be removed and replace with light gauze and tape or nothing. It may get wet after 3 days but avoid soaking the dressing. If it gets wet, just lightly pat dry. Medications: - You should take Tylenol and anti-inflammatory Celebrex as your primary pain control medications - You have been prescribed a stronger pain medication Tramadol for breakthrough pain, take as needed as prescribed. - You have also been prescribed a stomach acid reduction agent Pantoprozole to help reduce stomach acid and reflux. - You will be taking Coumadin for DVT prevention unless instructed otherwise. You will need to take the Lovenox (Enoxaparin) injections until your INR is at least 1.7. You will be instructed about your Coumadin dosing from Dr. Fitzgerald or PCP - If you have constipation you should take Colace or Miralax (both [id number]). It takes most people 3-4 days to have a bowel movement. Follow-up: 2 weeks 1. Encounter Date and Reason I certify that JASWANT CASAREZ was seen by Aneesh Fitzgerald MD on 05/18/19 and that I had a [id number] encounter with this patient that meets the physician face to face encounter requirements. 2. Clinical Findings Supporting Skilled Need and Homebound Status I certify that home health services are medically necessary, include either intermittent custodial and/or physical/speech therapy, and that this patient is homebound in that absences from the home require considerable and taxing effort and are infrequent or of short duration, or are attributable to the need to receive medical care. [X] (a) Attached documentation from encounter provides clinical findings supporting skilled need and homebound status (including what assistance patient requires to leave the home). The encounter with the patient was in whole, or in part, for the following medical condition, which is the primary reason for home health care: RIGHT KNEE DJD Custodial: Physical Therapy: Jaswant would benefit from home health physical therapy to address notable weakness, stiffness, and gait alterations following right knee replacement. He has no restrictions but should focus on assisted ambulation and extension primarily. He would also need POC INR draws to check Coumadin treatment. First recommended draw on Sat or Mon. Speech Therapy: Homebound: Jaswant is homebound and cannot leave his home without assistance due to gait abnormalities and weakness. 3. Certification and Authentication I certify that I composed the above information based on my clinical judgement relating to this patient's medical condition and, if applicable, clinical findings communicated to me by the NPP or inpatient physician who performed the Home Health Referral. All further orders will be obtained through Dr. Fitzgerald Referrals: Aneesh Fitzgerald MD [ [facility] STAFF PHYSICIAN] - Activity:: Activity as Tolerated Equipment/Supplies:: Walker Diet:: As Tolerated Discharge Orders Discharge Orders: Discharge Order (Routine); Ordered 05/18/19 Ordered By: Aneesh Fitzgerald DS: Summary Status at Discharge Functional status at discharge: uses cane/walker Overall status at discharge: patient is progressing back to baseline Mental Status: mental status grossly normal Speech and Movement: speech and movement normal Mood: congruent mood Affect: normal affect Exam Psych Mental Status: mental status grossly normal Speech and Movement: speech and movement normal Mood: congruent mood Affect: normal affect DS: Data Vitals/I&O Vitals and I&O: Vital Signs Temperature 37.0 C 05/18/19 07:22 Temperature Source Tympanic 05/18/19 07:22 Pulse 53 L 05/18/19 07:22 Pulse Rhythm Regular 05/18/19 09:20 Respiratory Rate 17 05/18/19 07:22 Respiratory Effort 05/18/19 09:20 Respiratory Depth Normal 05/18/19 09:20 Respiratory Pattern Normal 05/18/19 09:20 Blood Pressure 114/70 05/18/19 07:22 Pulse Oximetry 95 05/18/19 07:22 Respiratory End-tidal CO2 32 05/17/19 14:13 Oxygen Delivery Method Room Air 05/18/19 07:22 Oxygen Flow Rate 0 05/18/19 07:22 Pain Level 0 05/18/19 08:07 Comment 05/17/19 14:48 Intake & Output 05/17/19 05/18/19 05/18/19 23:59 11:59 23:59 Intake Total 963.000 / 2073.000 247.334 / 247.334 Output Total 200 / 200 1125 / 1125 Balance 763.000 / 1873.000 -877.666 / -877.666 Intake: IV 903.000 / 2012.000 247.334 / 247.334 Oral 60 / 60 Output: Urine 50 / 50 1125 / 1125 Estimated Blood Loss 150 / 150 Other: Urine Color Yellow Yellow Straw Urine Appearance Clear Clear Comment will dc 1 hour after administration of finasteride Stool Size Large Stool Characteristics Soft Formed Emesis Description None Data Completed and Pending Labs on day of discharge: Labs from last 24 hours 05/18/19 06:25 PT 11.1 H INR 1.1 PFSH Medical History Afib Arcus senilis BPH (benign prostatic hyperplasia) Carpal tunnel syndrome of right wrist Chronically dry eyes Coronary artery disease with angina pectoris Stent placement 2000 Elevated PSA 2007, since normalized Hematuria Hemorrhoids Left knee DJD Myositis Peripheral neuropathy Sexual dysfunction Tremor of both hands Varicose veins of lower extremity With Edema Surgical History Amputation right index finger Colonoscopy - MAC 2004; NEG 2009; TUBULAR ADENOMA Replacement of total knee joint (04/28/17) LEFT DR. ENGLISH Stent placement (~2000) Social History Smoking/Tobacco Use Status: Former Tobacco Use Alcohol Intake: current Alcohol Intake frequency: holidays/special occasions only Drug use: Never Household members: spouse Housing: house Number of Children: 3 current occupation: retired What is your relationship status?: Panel score (0-1 are the most socially isolated patients): 1 What type of physical activity do you participate in: none
--- NOTE | 2019-05-18 13:08 | CHAPLAIN ---
Julio Cesar was sitting up in a chair when I visited. He told me about his knee surgery two years ago, and then this one, which he said is already feeling much better post-surgery than the first one did. He may be discharged later today. 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 He seems to be comfortable being here, but is looking forward to getting home.
[2019-05-18] MEDS: Enoxaparin 40 MG/0.4 ML SYR SC (13:31)
--- NOTE | 2019-05-18 16:18 | PDOC.CMIN ---
- If Service Date Differs Date of service: 05/18/19 Time of Service: 16:18 Care Management Initial Assess REASON FOR HOSPITALIZATION:: right TKA PREVIOUS FUNCTIONAL STATUS/SOCIAL/FAMILY SUPPORTS:: Julio Cesar lives with his in a one-floor house with a ramp to enter. He states that he has learned from his other friends and has decided to make his house handicap-accessible in preparation for this knee surgery. Patient is independent with all aspects of ADLs prior to surgery. 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 CURRENT FUNCTIONAL STATUS:: Julio Cesar was sitting up in a chair when CM met with him. He was pleasant and agreeable to conversation. Julio Cesar stated that he will be discharged home later today. He feels he is doing very well and will have PT at home. ADVANCE DIRECTIVES:: none on file Has patient been provided with information about the portal?: No Did the patient sign up for the portal?: No CODE STATUS:: Full Code INSURANCE COVERAGE / FINANCIAL ISSUES:: Medicare. AARP CURRENT HOME/COMMUNITY SERVICES/EQUIPMENT:: FWW PRIMARY CARE PHYSICIAN:: Twan Mcgovern MD PATIENT/FAMILY EDUCATION NEEDS:: Discharge plan, limitations, follow up plan, Ask Me Three TRANSPORTATION:: via private vehicle with PLAN:: Julio Cesar will be discharged home with new PT. He will follow up with his surgeon and discharge plan of care. Julio Cesar will transport via private vehicle with his .
--- NOTE | 2019-05-18 16:27 | PDOC.CMDIS ---
- If Service Date Differs Date of service: 05/18/19 Time of Service: 16:27 LACE Index Scoring Tool - Questions: Length of Stay (in days): 1 Acuity (Admit via E.D.?): No E.D. Visits: 1 - Answers: Total Score: 2 Risk of Readmission: Low Risk Care Management Discharge Reason for Hospitalization: right TKA Discharge Plan: Julio Cesar will be discharged home with new PT. He will follow up with his surgeon and discharge plan of care. Julio Cesar will transport via private vehicle with his . Patient/Family Education Needs: Discharge plan, limitations, follow up plan, Ask Me Three
--- NOTE | 2019-05-19 11:18 | PT.INDS ---
Date of service: 05/19/19 Time of Service: 11:18 PT Notes Inpatient Physical Therapy Discharge Summary Dates: 05/19/2019 Dates of Service: 05/17/2019 and 05/18/2019 This is a clinical summary of care provided on the duration of dates listed above. No charge was made in the completion of this documentation. Referring Doctor: Aneesh Fitzgerald MD PT Orders: PT CONSULT: S/P Ortho surgery. S/P R TKA. Precautions: Fall. Standard. WBAT on R LE. Patient Profile/Admitting Diagnosis: Patient is a 79-year-old male patient who is S/P R total knee arthroplasty due to primary unilateral osteoarthritis of R knee. PMHX: Bilateral knee degenerative joint disease. Right hip degenerative joint disease. CAD with stent in 2000. Arcus senilis Chronic dry eye. Atrial fibrillation, anticoagulated with Warfarin. Benign prostatic hypertrophy. Hypertension. Hyperlipidemia. Social History/Home Situation: Patient lives with in a one-floor house with a ramp to enter. He states that he has learned from his other friends and has decidedly made his house handicap-accessible in preparation for this kne surgery. Patient is independent with all aspects of ADLs prior to surgery. 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 Equipment Owned/DME: W Subjective: NT Objective: General Observation: NT Mental Status: NT Pain: NT ROM: Right Upper Extremity: Shoulder Flexion WFL. Shoulder abduction WFL. Elbow flexion WFL. Wrist flexion WFL. Opening and closing of hand WFL. Left Upper Extremity: Shoulder Flexion WFL. Shoulder abduction WFL. Elbow flexion WFL. Wrist flexion WFL. Opening and closing of hand WFL. Right Lower Extremity: Hip flexion WFL. Hip abduction WFL. Knee flexion 0-110. Knee extension -5 degrees. Ankle dorsiflexion WFL. Ankle plantarflexion WFL. Left Lower Extremity: Hip flexion WFL. Hip abduction WFL. Knee flexion WFL. Ankle dorsiflexion WFL. Ankle plantarflexion WFL. Strength: Right Upper Extremity: Shoulder flexors 5/5. Shoulder abductors 5/5. Elbow flexors 5/5. Elbow extensors 5/5. Judicial Reporter strong. Left Upper Extremity: Shoulder flexors 5/5. Shoulder abductors 5/5. Elbow flexors 5/5. Elbow extensors 5/5. Judicial Reporter strong. Right Lower Extremity: Hip flexors 5/5. Hip abductors 5/5. Knee flexors 3-/5. Knee extensors 3-/5. Ankle dorsiflexors 5/5. Ankle plantarflexors 5/5. Left Lower Extremity:Hip flexors 5/5. Hip abductors 5/5. Knee flexors 5/5. Knee extensors 5/5. Ankle dorsiflexors 5/5. Ankle plantarflexors 5/5. Sensation: Intact as to pain and pressure on left lower extremity. Tingling sensation on R LE. Bed Mobility/Transfers: Rolling independent Supine to sit independent Sit to supine independent Sit to stand supervision Stand to sit supervision Bed to chair supervision Chair to bed supervision Gait: Patient was able to tolerate 200 feet using the FWW with SBA. Balance: Static Sitting: Normal Dynamic Sitting: Normal Static Standing: Fair Dynamic Standing: Fair Assessment: Patient is a 79-year-old male patient who is S/P R total knee arthroplasty due to primary unilateral osteoarthritis of R knee. Patient is pleasant and cooperative. He is motivated to return to his premorbid independent level. He has the support of his upon discharge. Patient continues to present with clinical signs and symptoms consistent with current/admitting diagnoses that have resulted to mobility limitations, gait instability, generalized weakness, and impairment of motor control as demonstrated by the following impairment level findings: 1. Decreased strength to R LE major muscle groups 2. Impaired standing balance 3. Impaired activity tolerance 4. Limitation of joint range of motion in R knee Impairments continue to contribute to the following functional limitations: 3. Inability to safely ambulate without assistive device and physical assistance 4. Increase completion time for mobility ADL performance 5. Increased fall risk Goals: Goals X1 week 1. Supine-Sit independent 2. Sit-Supine independent 3. Sit-Stand independent 4. Stand-Sit independent 5. Bed-Chair independent 6. Chair-Bed independent 7. Independent gait on level surface with use of least restrictive device for at least 300 feet without report of pain nor dyspnea 8. Independent with home exercise program 9. Good static and dynamic standing balance/tolerance DISCHARGE RECOMMENDATIONS: No equipment needs at this time may benefit from skilled physical therapy services according to orthopedic surgeon's timeline recommendations. Patient will be educated and trained on home exercise program per TKA exercise protocol in preparation for outpatient physical therapy services. TREATMENT CODE/TIME: WA. Thank you very much for this referral. Janie Barksdale PT, DPT, CLT [facility]
== END 2019-05-18 14:01 | disposition home health service (06) | DRG 470 ==
LOC: PDS 08:15 → MS 14:55
PROVIDERS: Admitting Provider Student in an Organized Health Care Education/Training Program; PCP Emergency Medicine; Visit Provider Student in an Organized Health Care Education/Training Program
PROC: 0SRC0J9 Replacement of Right Knee Joint with Synthetic Substitute, Cemented, Open Approach (ICD-10-PCS; CPT 27447; principal; 2019-05-17 10:15)
DX: M17.11 Unilateral primary osteoarthritis, right knee (principal); Z96.651 Presence of right artificial knee joint; M25.561 Pain in right knee; Z79.01 Long term (current) use of anticoagulants; I48.91 Unspecified atrial fibrillation; N40.0 Benign prostatic hyperplasia without lower urinary tract symptoms; I25.10 Atherosclerotic heart disease of native coronary artery without angina pectoris; Z95.5 Presence of coronary angioplasty implant and graft; I10 Essential (primary) hypertension
CPT/HCPCS: 27447; 36415; 76942; 97110; 97162; 97530; J1650; NC; 85610; J0690; J1885

== ENCOUNTER 2019-05-23 12:21 | Outpatient (REF) | payer MEDICARE, SELFPAY ==
[2019-05-23 14:29] LABS: INR 1.5 (0.9-1.1); Prothrombin Time 14.7 sec (9.3-11.0)
== END 2019-05-23 12:41 ==
LOC: LBN 12:21
PROVIDERS: PCP Emergency Medicine; Visit Provider Student in an Organized Health Care Education/Training Program
DX: I25.10 Atherosclerotic heart disease of native coronary artery without angina pectoris (principal); Z96.651 Presence of right artificial knee joint; Z47.1 Aftercare following joint replacement surgery; Z79.01 Long term (current) use of anticoagulants
CPT/HCPCS: 85610

== ENCOUNTER 2019-05-30 14:17 | Outpatient (REF) | payer MEDICARE, SELFPAY ==
[2019-05-30 13:08] LABS: INR 1.9 (0.9-1.1); Prothrombin Time 18.6 sec (9.3-11.0)
== END 2019-05-30 14:37 ==
LOC: LBN 14:17
PROVIDERS: PCP Emergency Medicine; Visit Provider Student in an Organized Health Care Education/Training Program
DX: Z96.651 Presence of right artificial knee joint (principal); Z47.1 Aftercare following joint replacement surgery; I48.91 Unspecified atrial fibrillation; Z79.01 Long term (current) use of anticoagulants
CPT/HCPCS: 85610

== ENCOUNTER 2019-06-01 08:20 | Outpatient (CLI) | payer MEDICARE, SELFPAY ==
--- NOTE | 2019-06-01 08:27 | DI.RAD_ITS ---
EXAM: XR STANDING ALIGNMENT INDICATION: 1ST POST OP TKA. COMPARISON: No exams were available for comparison TECHNIQUE: 2D digital imaging was performed. FINDINGS: Standing AP views were performed from the pelvis through the ankles. There are bilateral total knee p rostheses. The left iliac crest projects superior to the right. At the level of the femoral heads, th e left femoral head projects 10 millimeters superior to the right. There is mild left and moderate ri ght hip joint space narrowing. The ankle joint spaces are well maintained. Degenerative changes are s een medially at both ankles. IMPRESSION: Bilateral knee prostheses. Overall leg length discrepancy of 10 millimeters.
--- NOTE | 2019-06-01 08:30 | DI.RAD_ITS ---
EXAM: XR KNEE RT 1V INDICATION: 1ST POST OP. COMPARISON: XR knee RT 4V AP,lat,michelle,pat from 12/28/2018 XR STANDING ALIGNMENT from 06/01/2019 TECHNIQUE: 2D digital imaging was performed. FINDINGS: Patient is status post placement of a total knee prosthesis. The components appear well aligned. No abnormal bony lucencies are seen.
== END 2019-06-01 08:40 ==
PROVIDERS: PCP Emergency Medicine; Referring Provider Emergency Medicine; Visit Provider Student in an Organized Health Care Education/Training Program
DX: Z96.653 Presence of artificial knee joint, bilateral (principal); Z47.1 Aftercare following joint replacement surgery; M21.70 Unequal limb length (acquired), unspecified site
CPT/HCPCS: 73560; 77073

== ENCOUNTER 2019-06-12 09:03 | Outpatient (CLI) | payer MEDICARE, SELFPAY ==
[2019-06-12 14:27] LABS: INR 2.3 (0.9-1.1); Prothrombin Time 22.8 sec (9.3-11.0)
== END 2019-06-12 09:23 ==
PROVIDERS: PCP Emergency Medicine; Visit Provider Emergency Medicine
DX: I48.91 Unspecified atrial fibrillation (principal); Z79.01 Long term (current) use of anticoagulants
CPT/HCPCS: 36415; 85610

== ENCOUNTER 2019-06-27 01:43 | Outpatient (CLI) | payer MEDICARE, SELFPAY ==
[2019-06-27 10:54] LABS: INR 2.5 (0.9-1.1); Prothrombin Time 24.4 sec (9.3-11.0)
== END 2019-06-27 02:03 ==
PROVIDERS: PCP Emergency Medicine; Visit Provider Emergency Medicine
DX: I48.91 Unspecified atrial fibrillation (principal); Z79.01 Long term (current) use of anticoagulants
CPT/HCPCS: 36415; 85610

== ENCOUNTER → 2019-07-03 09:31 | Outpatient (BNVA) | payer MEDICARE, SELFPAY | PROVIDERS: PCP Emergency Medicine; Referring Provider Emergency Medicine; Visit Provider Student in an Organized Health Care Education/Training Program | DX: Z47.1 Aftercare following joint replacement surgery (principal); Z96.651 Presence of right artificial knee joint ==

== ENCOUNTER 2019-07-31 02:37 | Outpatient (CLI) | payer MEDICARE, SELFPAY ==
[2019-07-31 11:48] LABS: Prothrombin Time 23.1 sec (9.3-11.0)
[2019-07-31 11:50] LABS: INR 2.3 (0.9-1.1)
== END 2019-07-31 02:57 ==
PROVIDERS: PCP Emergency Medicine; Visit Provider Emergency Medicine
DX: I48.91 Unspecified atrial fibrillation (principal); Z79.01 Long term (current) use of anticoagulants
CPT/HCPCS: 36415; 85610

== ENCOUNTER → 2019-08-14 10:11 | Outpatient (BNVA) | payer MEDICARE, SELFPAY | PROVIDERS: PCP Emergency Medicine; Referring Provider Emergency Medicine; Visit Provider Student in an Organized Health Care Education/Training Program | DX: Z96.651 Presence of right artificial knee joint; Z47.1 Aftercare following joint replacement surgery; M70.61 Trochanteric bursitis, right hip | CPT/HCPCS: 20610; 99213; J1040 ==

== ENCOUNTER 2019-09-01 00:16 | Outpatient (CLI) | payer MEDICARE, SELFPAY ==
[2019-09-01 11:19] LABS: INR 2.3 (0.9-1.1)
== END 2019-09-01 00:36 ==
PROVIDERS: PCP Emergency Medicine; Visit Provider Emergency Medicine
DX: I48.91 Unspecified atrial fibrillation (principal); Z79.01 Long term (current) use of anticoagulants
CPT/HCPCS: 36415; 85610

== ENCOUNTER → 2019-09-25 09:51 | Outpatient (BNVA) | payer MEDICARE, SELFPAY | PROVIDERS: PCP Emergency Medicine; Referring Provider Emergency Medicine; Visit Provider Student in an Organized Health Care Education/Training Program | DX: Z47.1 Aftercare following joint replacement surgery (principal); Z96.651 Presence of right artificial knee joint; M70.61 Trochanteric bursitis, right hip | CPT/HCPCS: 99212 ==

== ENCOUNTER 2019-09-28 02:23 | Outpatient (CLI) | payer MEDICARE, SELFPAY ==
[2019-09-28 11:54] LABS: INR 2.1 (0.9-1.1); Prothrombin Time 20.7 sec (9.3-11.0)
== END 2019-09-28 02:43 ==
PROVIDERS: PCP Emergency Medicine; Visit Provider Emergency Medicine
DX: I48.91 Unspecified atrial fibrillation (principal); Z79.01 Long term (current) use of anticoagulants
CPT/HCPCS: 36415; 85610

== ENCOUNTER 2019-11-01 02:24 | Outpatient (CLI) | payer MEDICARE, SELFPAY ==
[2019-11-01 15:51] LABS: Prothrombin Time 29.5 sec (9.3-11.0)
== END 2019-11-01 02:44 ==
PROVIDERS: PCP Emergency Medicine; Visit Provider Emergency Medicine
DX: I48.91 Unspecified atrial fibrillation (principal); Z79.01 Long term (current) use of anticoagulants
CPT/HCPCS: 36415; 85610

== ENCOUNTER 2019-11-27 02:39 | Outpatient (CLI) | payer MEDICARE, SELFPAY ==
[2019-11-27 11:58] LABS: INR 2.1 (0.9-1.1); Prothrombin Time 20.6 sec (9.3-11.0)
== END 2019-11-27 02:59 ==
PROVIDERS: PCP Emergency Medicine; Visit Provider Emergency Medicine
DX: I48.91 Unspecified atrial fibrillation (principal); Z79.01 Long term (current) use of anticoagulants
CPT/HCPCS: 36415; 85610

== ENCOUNTER 2019-12-15 08:49 | Outpatient (CLI) | payer MEDICARE, SELFPAY ==
[2019-12-17 10:40] LABS: COVID-19 RT-PCR Result NEGATIVE (Negative)
== END 2019-12-15 09:09 ==
PROVIDERS: PCP Emergency Medicine; Visit Provider Emergency Medicine
DX: Z11.59 Encounter for screening for other viral diseases (principal)
CPT/HCPCS: U0003

== ENCOUNTER 2019-12-20 02:34 | Outpatient (CLI) | payer MEDICARE, SELFPAY ==
[2019-12-20 12:57] LABS: INR 2.7 (0.9-1.1); Prothrombin Time 26.2 sec (9.3-11.0)
== END 2019-12-20 02:54 ==
PROVIDERS: PCP Emergency Medicine; Visit Provider Emergency Medicine
DX: I48.91 Unspecified atrial fibrillation (principal); Z79.01 Long term (current) use of anticoagulants
CPT/HCPCS: 36415; 85610

== ENCOUNTER 2019-12-26 09:21 | Outpatient (CLI) | payer MEDICARE, SELFPAY ==
--- NOTE | 2019-12-26 06:00 | DI.RAD_ITS ---
EXAM: XR PAIN CLINIC LUMBAR SP 2V CLINICAL HISTORY: Dx: Lumbar Radiculopathy TECHNIQUE: 2D and realtime digital imaging was performed. CONTRAST MATERIAL: Refer to procedure report. COMPARISON: No exams were available for comparison FINDINGS: Fluoroscopy was provided for Dr. Livingston during the performance of a lumbar epidural injection. Please r efer to the procedure report for complete details. Fluoro time: 16.3 seconds IMPRESSION:
[2019-12-26 09:39] VITALS: BP 149/84; PULSE 60; RESP 16; TEMP 37; O2SAT 96
[2019-12-26 09:57] LABS: INR 1.1 (0.9-1.1); Prothrombin Time 11.1 sec (9.3-11.0)
[2019-12-26] MEDS: methylPREDNISolone ACETATE 80 MG/ML VIAL IJ (11:03)
[2019-12-26] MEDS: Omnipaque 240 MG/ML 50 ML BTL IJ (11:03)
[2019-12-26 11:04] VITALS: BP 154/74; PULSE 65; RESP 17; O2SAT 100
--- NOTE | 2019-12-26 11:07 | PDOC.PAIN ---
Pain Clinic Procedure Note Procedure Note Procedure Note: Lumbar Epidural Steroid Injection Procedure Note pre-operative diagnosis: lumbar spinal stenosis post-operative diagnosis: same as above COMMENTS: patient has lower back pain that radiates to bilateral hips and buttock. Patient takes coumadin for atrial fibrillation. He discontinued his anticoagulant for 5 days and his INR check today is 1.1. JASWANT CASAREZ has been referred to the [facility] for lumbar epidural steroid injection. The patient was greeted by the nurse who verified patients name and . Patient was then taken to the fluoroscopy suite. The patient was interviewed and the medial record reviewed. There were no medical, pharmacologic, radiographic, or other structural contraindications to attempting fluoroscopically guided lumbar epidural steroid injection. Risks and expected side effects as well as potential benefits of the procedure were reviewed and voiced concerns expressed. The patient consent form was signed and witnessed. Standard patient time-out procedure was performed. The patient was placed in the prone position on the fluoroscopy table and automated blood pressure cuff and pulse oximeter applied. The skin entry point for entering/approaching the epidural space by a L4-5 and marked. Following thorough chlorhexadine preparation of the skin and draping and 1% lidocaine infiltration of the skin entry point and subcutaneous tissues, a 18 gauge Touhy needle was placed under fluoroscopic guidance and with loss of resistance technique into the epidural space. Needle tip placement and depth were aided and confirmed by fluoroscopy. There was no paresthesia or return of blood or CSF through the needle. 1 cc's of Omnipaque 240 was injected with clear epidural spread confirmed with fluoroscopy. 80mg depomedrol was injected. This is followed by 0.5cc of preservative free 1% lidocaine and 1cc of preservative free normal saline. There was not any unusual discomfort expressed by JASWANT CASAREZ. Patient's vital signs were stable throughout the procedure and were as recorded in nursing records. Follow up plans and appointments were discussed with patient. Post procedure instruction was given as documented in nursing records and having met discharge criteria and was discharged from the [facility]. COMMENTS: If this procedure is helpful, it can be completed up to 3 times per 12 months. please note, patient may resume his coumadin 24 hrs after LESI. He is instructed to contact his primary care physician's office to see which dose he should restart. I personally performed the entire procedure. Memo Livingston MD Pain Management
== END 2019-12-26 09:41 ==
PROVIDERS: PCP Emergency Medicine; Visit Provider Internal Medicine
DX: M48.062 Spinal stenosis, lumbar region with neurogenic claudication (principal)
CPT/HCPCS: 36415; 62323; 72100; 85610; J1040; Q9967

== ENCOUNTER 2020-01-01 02:24 | Outpatient (CLI) | payer MEDICARE, SELFPAY ==
[2020-01-01 12:46] LABS: INR 1.4 (0.9-1.1); Prothrombin Time 14.1 sec (9.3-11.0)
== END 2020-01-01 02:44 ==
PROVIDERS: PCP Emergency Medicine; Visit Provider Emergency Medicine
DX: I48.91 Unspecified atrial fibrillation (principal); Z79.01 Long term (current) use of anticoagulants
CPT/HCPCS: 36415; 85610

== ENCOUNTER 2020-01-08 01:56 | Outpatient (CLI) | payer MEDICARE, SELFPAY ==
[2020-01-08 12:50] LABS: Prothrombin Time 19.8 sec (9.3-11.0)
== END 2020-01-08 02:16 ==
PROVIDERS: PCP Emergency Medicine; Visit Provider Emergency Medicine
DX: I48.91 Unspecified atrial fibrillation (principal); Z79.01 Long term (current) use of anticoagulants
CPT/HCPCS: 36415; 85610

== ENCOUNTER 2020-01-15 02:45 | Outpatient (CLI) | payer MEDICARE, SELFPAY ==
[2020-01-15 12:52] LABS: INR 2.1 (0.9-1.1); Prothrombin Time 20.6 sec (9.3-11.0)
== END 2020-01-15 03:05 ==
PROVIDERS: PCP Emergency Medicine; Visit Provider Emergency Medicine
DX: Z79.01 Long term (current) use of anticoagulants (principal); I48.91 Unspecified atrial fibrillation
CPT/HCPCS: 36415; 85610

== ENCOUNTER → 2020-01-17 09:24 | Outpatient (BNVA) | payer MEDICARE, SELFPAY | PROVIDERS: PCP Emergency Medicine; Referring Provider Emergency Medicine; Visit Provider Surgery | DX: K64.8 Other hemorrhoids (principal); Z86.010 Personal history of colon polyps; Z96.651 Presence of right artificial knee joint; Z95.828 Presence of other vascular implants and grafts; Z79.01 Long term (current) use of anticoagulants; K57.30 Diverticulosis of large intestine without perforation or abscess without bleeding | CPT/HCPCS: 99202; 99214 ==

== ENCOUNTER 2020-01-23 03:52 | Outpatient (CLI) | payer MEDICARE, SELFPAY ==
[2020-01-23 12:46] LABS: Uric Acid 7.6 mg/dL (3.5-7.2)
[2020-01-23 12:56] LABS: Prothrombin Time 19.5 sec (9.3-11.0)
== END 2020-01-23 04:12 ==
PROVIDERS: Family Medicine; PCP Emergency Medicine; Visit Provider Emergency Medicine
DX: M10.9 Gout, unspecified (principal); Z79.01 Long term (current) use of anticoagulants; I48.91 Unspecified atrial fibrillation
CPT/HCPCS: 36415; 84550; 85610

== ENCOUNTER 2020-02-05 02:58 | Outpatient (CLI) | payer MEDICARE, SELFPAY ==
[2020-02-05 12:50] LABS: INR 2.6 (0.9-1.1); Prothrombin Time 25.1 sec (9.3-11.0)
== END 2020-02-05 03:18 ==
PROVIDERS: PCP Emergency Medicine; Visit Provider Emergency Medicine
DX: I48.91 Unspecified atrial fibrillation (principal); Z79.01 Long term (current) use of anticoagulants
CPT/HCPCS: 36415; 85610

== ENCOUNTER 2020-02-19 09:45 | Outpatient (CLI) | payer MEDICARE, SELFPAY ==
[2020-02-19 12:58] LABS: INR 2.4 (0.9-1.1); Prothrombin Time 23.5 sec (9.3-11.0)
== END 2020-02-19 10:05 ==
PROVIDERS: PCP Emergency Medicine; Visit Provider Emergency Medicine
DX: I48.91 Unspecified atrial fibrillation (principal); Z79.01 Long term (current) use of anticoagulants
CPT/HCPCS: 36415; 85610

== ENCOUNTER 2020-03-14 04:29 | Outpatient (CLI) | payer MEDICARE, SELFPAY ==
[2020-03-14 13:29] LABS: Prothrombin Time 29.2 sec (9.3-11.0)
== END 2020-03-14 04:49 ==
PROVIDERS: PCP Emergency Medicine; Visit Provider Emergency Medicine
DX: I48.91 Unspecified atrial fibrillation (principal); Z79.01 Long term (current) use of anticoagulants
CPT/HCPCS: 36415; 85610

== ENCOUNTER 2020-03-27 05:32 | Outpatient (CLI) | payer MEDICARE, SELFPAY ==
[2020-03-27 13:55] LABS: INR 2.8 (0.9-1.1); Prothrombin Time 27.4 sec (9.3-11.0)
== END 2020-03-27 05:52 ==
PROVIDERS: PCP Emergency Medicine; Visit Provider Emergency Medicine
DX: I48.91 Unspecified atrial fibrillation (principal); Z79.01 Long term (current) use of anticoagulants
CPT/HCPCS: 36415; 85610

== ENCOUNTER 2020-04-16 07:51 | Outpatient (CLI) | payer MEDICARE, SELFPAY ==
--- NOTE | 2020-04-16 06:00 | DI.RAD_ITS ---
EXAM: XR PAIN CLINIC LUMBAR SP 2V CLINICAL HISTORY: Dx: Lumbar Radiculopathy,L 4-5 LUMBAR EPIDURAL STEROID INJECTION TECHNIQUE: Fluoroscopy was provided for the referring physician for guidance with performing injecti on procedure. COMPARISON: No exams were available for comparison FINDINGS: Please see procedure note for details. Fluoro time: 16.6 seconds RADIATION DOSE DELIVERED:
[2020-04-16 08:15] VITALS: BP 125/81; PULSE 64; RESP 16; TEMP 37; O2SAT 96
--- NOTE | 2020-04-16 09:46 | PDOC.PAIN ---
Pain Clinic Procedure Note Procedure Note Procedure Note: Lumbar Epidural Steroid Injection Procedure Note pre-operative diagnosis: lumbar radiculopathy post-operative diagnosis: same as above COMMENTS: spinal stenosis with neurogenic claudication, previously received LESI at L4-5 which provided 2-3 months of excellent pain relief. JASWANT CASAREZ has been referred to the [facility] for lumbar epidural steroid injection. The patient was greeted by the nurse who verified patients name and . Patient was then taken to the fluoroscopy suite. The patient was interviewed and the medial record reviewed. There were no medical, pharmacologic, radiographic, or other structural contraindications to attempting fluoroscopically guided lumbar epidural steroid injection. Risks and expected side effects as well as potential benefits of the procedure were reviewed and voiced concerns expressed. The patient consent form was signed and witnessed. Standard patient time-out procedure was performed. The patient was placed in the prone position on the fluoroscopy table and automated blood pressure cuff and pulse oximeter applied. The skin entry point for entering/approaching the epidural space by a L4-5 and marked. Following thorough chlorhexadine preparation of the skin and draping and 1% lidocaine infiltration of the skin entry point and subcutaneous tissues, a 18 gauge Touhy needle was placed under fluoroscopic guidance and with loss of resistance technique into the epidural space. Needle tip placement and depth were aided and confirmed by fluoroscopy. There was no paresthesia or return of blood or CSF through the needle. 1 cc's of Omnipaque 240 was injected with clear epidural spread confirmed with fluoroscopy. 80mg depomedrol was injected. There was not any unusual discomfort expressed by JASWANT CASAREZ. Patient's vital signs were stable throughout the procedure and were as recorded in nursing records. Follow up plans and appointments were discussed with patient. Post procedure instruction was given as documented in nursing records and having met discharge criteria and was discharged from the [facility]. COMMENTS: If this procedure is helpful, it can be completed up to 3 times per 12 months. Memo Livingston MD Pain Management
[2020-04-16] MEDS: methylPREDNISolone ACETATE 80 MG/ML VIAL IJ (09:50)
[2020-04-16 09:51] VITALS: BP 138/84; PULSE 57; RESP 17; O2SAT 100
[2020-04-16] MEDS: Omnipaque 240 MG/ML 50 ML BTL IJ (09:51)
== END 2020-04-16 08:11 ==
PROVIDERS: PCP Emergency Medicine; Visit Provider Internal Medicine
DX: M54.16 Radiculopathy, lumbar region (principal)
CPT/HCPCS: 62323; 72100; J1040; Q9967

== ENCOUNTER 2020-04-16 08:21 | Outpatient (REF) | payer MEDICARE, SELFPAY ==
[2020-04-16 09:21] LABS: INR 1.1 (0.9-1.1); Prothrombin Time 11.4 sec (9.3-11.0)
== END 2020-04-16 08:41 ==
LOC: LBO 08:21
PROVIDERS: PCP Emergency Medicine; Visit Provider Internal Medicine
DX: I48.91 Unspecified atrial fibrillation (principal); Z79.01 Long term (current) use of anticoagulants; M53.3 Sacrococcygeal disorders, not elsewhere classified; M54.16 Radiculopathy, lumbar region
CPT/HCPCS: 36415; 62323; 72100; 85610; J1040; Q9967

== ENCOUNTER 2020-04-19 09:01 | Outpatient (CLI) | payer MEDICARE, SELFPAY ==
--- NOTE | 2020-04-19 08:30 | DI.RAD_ITS ---
EXAM: XR KNEE RT 3V AP,LAT,[place] CLINICAL HISTORY: knee pain. TECHNIQUE: 2D digital imaging was performed. COMPARISON: CR XR KNEE RT 1V from 06/01/2019 FINDINGS: A total knee prosthesis is again noted. There is no change in alignment. There are no abnormal surr ounding lucencies. No joint effusion is seen. There is spurring at the quadriceps insertion on the patella. IMPRESSION: Unremarkable total knee prosthesis. DATA REPOSITORY: RADIATION DOSE DELIVERED:
--- NOTE | 2020-04-19 08:45 | DI.RAD_ITS ---
EXAM: XR KNEE LT 3V AP,LAT,[place] INDICATION: knee pain. COMPARISON: CR XR STANDING ALIGNMENT from 06/01/2019 CR XR KNEE RT 1V from 06/01/2019 CR XR KNEE RT 3V AP,LAT,[place] from 04/19/2020 TECHNIQUE: 2D digital imaging was performed. FINDINGS: A total knee prosthesis is noted. There are no abnormal surrounding lucencies. There is spurring at the quadriceps insertion on the patella. No joint effusion is seen. There is incidental exostosis of the proximal fibula. Impression: Unremarkable knee prosthesis. DATA REPOSITORY: RADIATION DOSE DELIVERED:
== END 2020-04-19 09:21 ==
PROVIDERS: PCP Emergency Medicine; Referring Provider Emergency Medicine; Visit Provider Student in an Organized Health Care Education/Training Program
DX: Z96.653 Presence of artificial knee joint, bilateral (principal); M89.9 Disorder of bone, unspecified; M76.892 Other specified enthesopathies of left lower limb, excluding foot; M76.891 Other specified enthesopathies of right lower limb, excluding foot; M25.552 Pain in left hip; M25.551 Pain in right hip
CPT/HCPCS: 73562; 99214

== ENCOUNTER 2020-04-23 11:28 | Outpatient (REF) | payer MEDICARE, SELFPAY ==
[2020-04-23 14:12] LABS: Abs Immature Grans 0.14 10^3/uL (0.0-0.06); Absolute Basophil Count 0.13 10^3/uL (0.0-0.2); Absolute Eosinophil Count 0.21 10^3/uL (0.0-0.7); Absolute Lymphocyte Count 2.68 10^3/uL (1.2-3.4); Absolute Monocyte Count 1.64 10^3/uL (0.1-0.8); Absolute Neutrophil Count 8.22 10^3/uL (1.2-6.7); Eosinophils % 1.6; HCT 47.2 % (40.0-50.0); HGB 15.1 g/dL (13.5-17.5); Immature Grans % 1.1; Lymphocytes % 20.6; MCH 28.6 pg (27.0-33.0); MCV 89.4 fL (80-95); MPV 10.6 fL (8.0-11.0); Monocytes % 12.6; Neutrophils % 63.1; Nucleated RBC 0 %; Platelet Count 336 10^3/uL (130-400); RBC 5.28 10^6/uL (4.36-5.78); RDW 13.8 % (11.8-14.1); RDW-SD 44.8 fL; WBC 13.02 10^3/uL (4.4-10.8)
[2020-04-23 14:32] LABS: Hemoglobin A1C 5.7 % (<5.7)
[2020-04-23 14:33] LABS: ALT 42 U/L (16-63); AST 22 U/L (15-37); Alkaline Phosphatase 47 U/L (46-116); BUN 21 mg/dL (7-18); Bilirubin, Total 0.6 mg/dL (0.2-1.0); C-Reactive Protein 0.21 mg/dL (0.0-0.3); CREATININE 0.89 mg/dL (0.70-1.30); Calcium 9.4 mg/dL (8.5-10.1); Chloride 101 mmol/L (98-107); Glucose 90 mg/dL (74-106); Potassium 3.8 mmol/L (3.5-5.1); Sodium 137 mmol/L (136-145); TSH 2.29 uIU/mL (0.36-3.74); Total Protein 7.2 g/dL (6.4-8.2)
[2020-04-23 14:34] LABS: Diff Comment Agrees w/ Instrument; RBC Morphology Normal
[2020-04-23 15:11] LABS: ESR 10 mm/hr (1-20)
[2020-05-03 10:15] LABS: Total Protein 7.2 g/dL (6.3-8.2)
== END 2020-04-23 11:48 ==
LOC: LBN 11:28
PROVIDERS: PCP Emergency Medicine; Visit Provider Emergency Medicine
DX: E03.9 Hypothyroidism, unspecified (principal); R26.89 Other abnormalities of gait and mobility; E11.9 Type 2 diabetes mellitus without complications; R07.1 Chest pain on breathing; M53.3 Sacrococcygeal disorders, not elsewhere classified
CPT/HCPCS: 80053; 85652; 83036; 84165; 84443; 85025; 86140

== ENCOUNTER 2020-04-24 04:45 | Outpatient (CLI) | payer MEDICARE, SELFPAY ==
[2020-04-24 13:24] LABS: INR 1.7 (0.9-1.1); Prothrombin Time 17.3 sec (9.3-11.0)
== END 2020-04-24 05:05 ==
PROVIDERS: PCP Emergency Medicine; Visit Provider Emergency Medicine
DX: I48.91 Unspecified atrial fibrillation (principal); Z79.01 Long term (current) use of anticoagulants
CPT/HCPCS: 36415; 85610

== ENCOUNTER 2020-04-25 01:27 | Outpatient (CLI) | payer MEDICARE, SELFPAY ==
--- NOTE | 2020-04-25 15:13 | DI.CT_ITS ---
EXAM: CT HEAD WO CLINICAL HISTORY: imbalance,R26.89. TECHNIQUE: Imaging Protocol: Axial computed tomography images with coronal and sagittal reformatted images were created and reviewed COMPARISON: No exams were available for comparison FINDINGS: There is moderate to severe generalized cerebral atrophy. No evidence of acute intracranial hemorrhage, mass effect, or midline shift. The orbital structures are unremarkable. The temporal bone structures appear intact. Calvarium: Normal. Visualized Paranasal sinuses/Mastoids: Clear. IMPRESSION: There is moderate to severe generalized cerebral atrophy. No evidence of acute intracranial process. RADIATION DOSE DELIVERED: 747.93mGy.cm Total DLP 747.93mGy.cm Total DLP DATA REPOSITORY: All CT scans at this facility are submitted to the National Radiology Data Registry (NRDR) Dose Index Registry (DIR) with the [employer] (ACR). RADIATION OPTIMIZATION: All CT scans at this facility use at least one of these dose optimization te chniques: automated exposure control; mA and/or kV adjustment per patient size (includes targeted exa ms where dose is matched to clinical indication); or iterative reconstruction.
== END 2020-04-25 01:47 ==
PROVIDERS: PCP Emergency Medicine; Visit Provider Emergency Medicine
DX: G31.89 Other specified degenerative diseases of nervous system (principal); R26.89 Other abnormalities of gait and mobility
CPT/HCPCS: 70450

== ENCOUNTER 2020-05-02 00:35 | Outpatient (CLI) | payer MEDICARE, SELFPAY ==
--- NOTE | 2020-05-02 07:02 | DI.RAD_ITS ---
EXAM: RF JOINT INJECTION FLUORO GUID CLINICAL HISTORY: R HIP INJ UNDER FLUORO,RT HIP PAIN,M25.551 TECHNIQUE: 2D and realtime digital imaging was performed. CONTRAST MATERIAL: Water soluble contrast was administered. COMPARISON: No exams were available for comparison FINDINGS: Fluoroscopy was provided for Dr. Fitzgerald during the performance of a right hip injection. Please r efer to the procedure report for complete details. Fluoro time: 1 second
[2020-05-02] MEDS: Omnipaque 300 MG/ML 10 ML BTL IJ (13:21)
[2020-05-02] MEDS: methylPREDNISolone ACETATE 80 MG/ML VIAL IM (13:22)
[2020-05-02] MEDS: Bupivacaine 0.5% Pres-Free 10 ML VIAL IJ (13:23)
--- NOTE | 2020-05-02 15:05 | W.PROCNOTE ---
Date of service: 05/02/20 Time of Service: 13:21 Procedure Note Date of procedure: 05/02/20 Procedure: Right Hip Injection with Fluoroscopic Guidance Surgeon/Proceduralist/Physician: Aneesh Fitzgerald Procedure Diagnosis: Right Hip Osteoarthritis Procedure Indications: Julio Cesar has had persistent pain of the RIGHT hip and groin. Noninvasive measures have been tried. To serve as both diagnostic and therapeutic, an injection under fluoroscopy was recommended. I had discussed the risks of the procedure and the patient elected to proceed. Procedure Description: Julio Cesar was greeted in the flouroscopy room. The correct side was identified and the consent was reviewed with the patient and signed. The patient was then placed in the supine position on the fluoroscopy table. The RIGHT hip was then prepped with Chloraprep. The anterolateral injection starting point was identiifed by bony landmarks and fluoroscopy. The skin and soft tissue in the tract of the injection was anesthetized with 1% Lidocaine. A spinal needle was then inserted deep into the hip joint at the level of the lateral femoral neck under fluoroscopic guidance. A small amount of Omnipaque solution was injected to confirm intraarticular placement. Once confirmed, the hip was injected with 6cc of 0.5% Bupivicaine and 80mg of Depo-Medrol. A bandaid was placed on the injection site. The patient tolerated the procedure well and noted improvement in pre-injection pain.
== END 2020-05-02 00:55 ==
PROVIDERS: PCP Emergency Medicine; Visit Provider Student in an Organized Health Care Education/Training Program
DX: M25.551 Pain in right hip (principal); R10.31 Right lower quadrant pain; M16.11 Unilateral primary osteoarthritis, right hip
CPT/HCPCS: 20610; 77002; J1040

== ENCOUNTER → 2020-05-07 08:18 | Outpatient (BNVA) | payer MEDICARE, SELFPAY | PROVIDERS: PCP Emergency Medicine; Referring Provider Emergency Medicine; Visit Provider Psychiatry & Neurology Neurology | DX: R42 Dizziness and giddiness (principal); E53.8 Deficiency of other specified B group vitamins; M48.061 Spinal stenosis, lumbar region without neurogenic claudication; I10 Essential (primary) hypertension; Z96.651 Presence of right artificial knee joint | CPT/HCPCS: 99214 ==

== ENCOUNTER 2020-05-09 02:26 | Outpatient (CLI) | payer MEDICARE, SELFPAY ==
[2020-05-09 12:39] LABS: INR 2.6 (0.9-1.1); Prothrombin Time 25.7 sec (9.3-11.0)
== END 2020-05-09 02:46 ==
PROVIDERS: PCP Emergency Medicine; Visit Provider Emergency Medicine
DX: I48.91 Unspecified atrial fibrillation (principal); Z79.01 Long term (current) use of anticoagulants
CPT/HCPCS: 36415; 85610

== ENCOUNTER → 2020-05-13 12:54 | Outpatient (BNVA) | payer MEDICARE, SELFPAY | PROVIDERS: PCP Emergency Medicine; Visit Provider Student in an Organized Health Care Education/Training Program | DX: Z96.651 Presence of right artificial knee joint; M70.61 Trochanteric bursitis, right hip; Z47.1 Aftercare following joint replacement surgery; M25.552 Pain in left hip | CPT/HCPCS: 99214 ==

== ENCOUNTER 2020-05-30 01:14 | Outpatient (CLI) | payer MEDICARE, SELFPAY ==
--- NOTE | 2020-05-30 15:10 | DI.RAD_ITS ---
EXAM: RF JOINT INJECTION FLUORO GUID CLINICAL HISTORY: LT HIP PAIN, LT HIP INJECTION UNDER FLUORO. TECHNIQUE: 2D and realtime digital imaging was performed. COMPARISON: No exams were available for comparison FINDINGS: Fluoroscopy was provided for Dr. Fitzgerald for guidance with performing a left hip injection. Please see procedure note for details. FLUORO TIME:.10 seconds RADIATION DOSE DELIVERED:
[2020-05-30] MEDS: methylPREDNISolone ACETATE 80 MG/ML VIAL IM (15:36)
[2020-05-30] MEDS: Omnipaque 300 MG/ML 10 ML BTL 1.5 ML IJ (15:36)
[2020-05-30] MEDS: Bupivacaine 0.5% Pres-Free 10 ML VIAL 6 ML IJ (15:37)
--- NOTE | 2020-05-31 13:06 | W.PROCNOTE ---
Date of service: 05/30/20 Time of Service: 15:06 Procedure Note Date of procedure: 05/31/20 Procedure: Left Hip Injection with Fluoroscopic Guidance Surgeon/Proceduralist/Physician: Aneesh Fitzgerald Procedure Diagnosis: Left Hip Osteoarthritis Procedure Indications: Julio Cesar has had persistent pain of the LEFT hip and groin. Noninvasive measures have been tried. To serve as both diagnostic and therapeutic, an injection under fluoroscopy was recommended. I had discussed the risks of the procedure and the patient elected to proceed. Procedure Description: Julio Cesar was greeted in the flouroscopy room. The correct side was identified and the consent was reviewed with the patient and signed. The patient was then placed in the supine position on the fluoroscopy table. The LEFT hip was then prepped with Chloraprep. The anterolateral injection starting point was identiifed by bony landmarks and fluoroscopy. The skin and soft tissue in the tract of the injection was anesthetized with 1% Lidocaine. A spinal needle was then inserted deep into the hip joint at the level of the lateral femoral neck under fluoroscopic guidance. A small amount of Omnipaque solution was injected to confirm intraarticular placement. Once confirmed, the hip was injected with 6cc of 0.5% Bupivicaine and 80mg of Depo-Medrol. A bandaid was placed on the injection site. The patient tolerated the procedure well and noted improvement in pre-injection pain.
== END 2020-05-30 01:34 ==
PROVIDERS: PCP Emergency Medicine; Visit Provider Student in an Organized Health Care Education/Training Program
DX: M16.12 Unilateral primary osteoarthritis, left hip (principal); M25.552 Pain in left hip
CPT/HCPCS: 20610; 77002; J1040

== ENCOUNTER 2020-06-07 04:38 | Outpatient (CLI) | payer MEDICARE, SELFPAY ==
[2020-06-07 13:47] LABS: INR 3.8 (0.9-1.1); Prothrombin Time 36.6 sec (9.3-11.0)
== END 2020-06-07 04:58 ==
PROVIDERS: PCP Emergency Medicine; Visit Provider Emergency Medicine
DX: I48.91 Unspecified atrial fibrillation (principal); Z79.01 Long term (current) use of anticoagulants
CPT/HCPCS: 36415; 85610

== ENCOUNTER 2020-06-19 03:25 | Outpatient (CLI) | payer MEDICARE, SELFPAY ==
[2020-06-19 12:46] LABS: INR 2.6 (0.9-1.1); Prothrombin Time 25.6 sec (9.3-11.0)
== END 2020-06-19 03:45 ==
PROVIDERS: PCP Emergency Medicine; Visit Provider Emergency Medicine
DX: I48.91 Unspecified atrial fibrillation (principal); Z79.01 Long term (current) use of anticoagulants
CPT/HCPCS: 36415; 85610

== ENCOUNTER 2020-07-04 02:24 | Outpatient (CLI) | payer MEDICARE, SELFPAY ==
[2020-07-04 13:35] LABS: INR 2.4 (0.9-1.1); Prothrombin Time 23.5 sec (9.3-11.0)
== END 2020-07-04 02:44 ==
PROVIDERS: PCP Emergency Medicine; Visit Provider Emergency Medicine
DX: I48.91 Unspecified atrial fibrillation (principal); Z79.01 Long term (current) use of anticoagulants
CPT/HCPCS: 36415; 85610

== ENCOUNTER 2020-07-18 04:44 | Outpatient (CLI) | payer MEDICARE, SELFPAY ==
[2020-07-18 13:27] LABS: INR 2.6 (0.9-1.1); Prothrombin Time 25.4 sec (9.3-11.0)
== END 2020-07-18 05:04 ==
PROVIDERS: PCP Emergency Medicine; Visit Provider Emergency Medicine
DX: I48.91 Unspecified atrial fibrillation (principal); Z79.01 Long term (current) use of anticoagulants
CPT/HCPCS: 36415; 85610

== ENCOUNTER 2020-08-05 15:52 | Outpatient (REF) | payer MEDICARE, SELFPAY ==
[2020-08-05 14:57] LABS: Uric Acid 6.6 mg/dL (3.5-7.2)
== END 2020-08-05 15:53 | disposition home or self-care (01) ==
LOC: LBN 15:52
PROVIDERS: PCP Emergency Medicine; Visit Provider Nurse Practitioner Family
DX: M10.9 Gout, unspecified (principal)
CPT/HCPCS: 84550

== ENCOUNTER 2020-08-06 01:16 | Outpatient (CLI) | payer MEDICARE, SELFPAY ==
--- NOTE | 2020-08-06 08:30 | DI.RAD_ITS ---
EXAM: XR ANKLE LT COMPLETE CLINICAL HISTORY: left ankle pain,M25.562 TECHNIQUE: 2D digital imaging was performed. COMPARISON: CR LEFT KNEE LIMITED 1 OR 2 VIEWS from 04/28/2017 FINDINGS: BONES: No acute fracture is present. No bony destructive lesion is seen. There is a large plantar elvin caneal spur. There is an enthesophyte at the Achilles insertion site. Dystrophic calcifications are seen along the plantar surface of the foot which may represent prior fascial injury. JOINTS:The ankle mortise is normally aligned. SOFT TISSUE: Vascular calcifications are present. IMPRESSION: No acute abnormality. DATA REPOSITORY: RADIATION DOSE DELIVERED:
--- NOTE | 2020-08-06 08:30 | DI.RAD_ITS ---
EXAM: XR FOOT LT COMPLETE CLINICAL HISTORY: left foot pain,M79.672. TECHNIQUE: 2D digital imaging was performed. COMPARISON: No previous for comparison. FINDINGS: BONES: No acute fracture is present. No bony destructive lesion is seen. There is deformity of the di stal 5th metatarsal bones suggestive of an old healed fracture. JOINTS: No dislocation present. Mild degenerative changes are seen in the foot particular at the 1st MTP joint and the articulation between the head of the 1st metatarsal and the sesamoid. There is a l arge plantar calcaneal spur. Calcification is seen at the Achilles insertion site. SOFT TISSUE: Dystrophic calcification is seen on the plantar surface of the foot likely reflecting pl dennis fascial injury. IMPRESSION: Degenerative and posttraumatic changes of the foot. Please see the above discussion for complete det ails. DATA REPOSITORY: RADIATION DOSE DELIVERED:
== END 2020-08-06 01:17 ==
PROVIDERS: PCP Emergency Medicine; Visit Provider Nurse Practitioner Family
DX: M19.072 Primary osteoarthritis, left ankle and foot (principal); M25.572 Pain in left ankle and joints of left foot
CPT/HCPCS: 73610; 73630

== ENCOUNTER 2020-08-07 21:18 | Outpatient (REF) | payer MEDICARE, SELFPAY ==
[2020-08-07 15:02] LABS: Abs Immature Grans 0.15 10^3/uL (0.0-0.06); Absolute Eosinophil Count 0.14 10^3/uL (0.0-0.7); Absolute Lymphocyte Count 2.18 10^3/uL (1.2-3.4); Absolute Monocyte Count 2.35 10^3/uL (0.1-0.8); Absolute Neutrophil Count 14.51 10^3/uL (1.2-6.7); Basophils % 0.5; Eosinophils % 0.7; HCT 45.3 % (40.0-50.0); HGB 14.8 g/dL (13.5-17.5); Immature Grans % 0.8; Lymphocytes % 11.2; MCH 29.4 pg (27.0-33.0); MCHC 32.7 % (32.0-36.0); MCV 89.9 fL (80-95); MPV 10.6 fL (8.0-11.0); Monocytes % 12.1; Neutrophils % 74.7; Nucleated RBC 0 %; Platelet Count 341 10^3/uL (130-400); RBC 5.04 10^6/uL (4.36-5.78); RDW 13.2 % (11.8-14.1); RDW-SD 43.4 fL; WBC 19.43 10^3/uL (4.4-10.8)
[2020-08-07 15:41] LABS: Diff Comment Agrees w/ Instrument
[2020-08-07 15:42] LABS: RBC Morphology Normal
[2020-08-07 22:55] LABS: PSA, Screening 15.2 ng/mL (0.0-6.5)
== END 2020-08-07 21:19 | disposition home or self-care (01) ==
LOC: LBN 21:18
PROVIDERS: PCP Emergency Medicine; Visit Provider Emergency Medicine
DX: R35.1 Nocturia (principal); N39.0 Urinary tract infection, site not specified; N23 Unspecified renal colic; N40.1 Benign prostatic hyperplasia with lower urinary tract symptoms; Z12.5 Encounter for screening for malignant neoplasm of prostate
CPT/HCPCS: 84153; 85025

== ENCOUNTER 2020-08-08 01:45 | Outpatient (CLI) | payer MEDICARE, SELFPAY ==
--- NOTE | 2020-08-08 11:02 | DI.CT_ITS ---
EXAM: CT RENAL COLIC WO CLINICAL HISTORY: renal colic, incontinence,PROSTATITIS, N23,N41.9. TECHNIQUE: Imaging Protocol: Axial computed tomography images with coronal and sagittal reformatted images were created and reviewed. CONTRAST MATERIAL: Noncontrast COMPARISON: CT LUMBAR SPINE WITHOUT CONTRAST from 11/05/2017 CT LUMBAR SPINE WITHOUT CONTRAST from 11/05/2017 FINDINGS: The heart is enlarged. Coronary artery calcifications are seen. The liver shows filtration. No gal lstones, biliary dilatation or gallbladder wall thickening is seen. Spleen is normal in size. The p ancreas and adrenals appear normal. There are no renal calculi or evidence of hydronephrosis. No cy st or mass is seen. The appendix appears normal. There is diverticulosis of the descending and sigm oid colon but no evidence of diverticulitis. There is normal quantity stool. The small bowel and st omach are nondistended. There is no ascites. Urinary bladder is nearly empty. The prostate appears normal in size. There is no surrounding inflammation. There is calcification in the abdominal aort a and branch vessels with no evidence of an aneurysm. There is a stable moderate compression fractur e of L1. No new compression fractures are seen. There are degenerative disc changes and facet degen erative changes. No disc herniation is visible. Degenerative changes are seen in the hips. IMPRESSION: No evidence urinary tract calculi or hydronephrosis. The bladder is not well evaluated as it is empt y. Prostate appears unremarkable. RADIATION DOSE DELIVERED: 1,212.23mGy.cm Total DLP DATA REPOSITORY: All CT scans at this facility are submitted to the National Radiology Data Registry (NRDR) Dose Index Registry (DIR) with the [employer] (ACR). RADIATION OPTIMIZATION: All CT scans at this facility use at least one of these dose optimization te chniques: automated exposure control; mA and/or kV adjustment per patient size (includes targeted exa ms where dose is matched to clinical indication); or iterative reconstruction.
== END 2020-08-08 01:46 ==
LOC: DI 01:45
PROVIDERS: PCP Emergency Medicine; Visit Provider Emergency Medicine
DX: N23 Unspecified renal colic (principal); N41.9 Inflammatory disease of prostate, unspecified
CPT/HCPCS: 74176

== ENCOUNTER 2020-08-08 13:12 | Outpatient (REF) | payer MEDICARE, SELFPAY ==
[2020-08-08 13:51] LABS: Bilirubin Negative (Negative); Blood Moderate (Negative); Clarity Sl Cloudy (Clear); Glucose Negative (Negative); Ketones Negative (Negative); Leukocyte Esterase Negative (Negative); Nitrite Positive (Negative); Specific Gravity >= 1.030 (1.005-1.025); Urobilinogen 0.2 EU/dL (Up TO 0.2); pH 5.5 (5-8)
[2020-08-08 14:02] LABS: WBC 0-2 HPF (0-5)
[2020-08-08 14:03] LABS: Bacteria Many HPF (Negative); C & S Indicated? Yes; Casts Negative LPF (Negative); Crystals Few Amorphous HPF (Negative); Epithelial Cells Few HPF (Negative); Mucus Trace (Negative)
== END 2020-08-08 13:13 | disposition home or self-care (01) ==
LOC: LBN 13:12
PROVIDERS: PCP Emergency Medicine; Visit Provider Emergency Medicine
DX: R30.0 Dysuria (principal); N23 Unspecified renal colic; N41.9 Inflammatory disease of prostate, unspecified
CPT/HCPCS: 87077; 81003; 81015; 87086; 87186

== ENCOUNTER 2020-08-15 02:46 | Outpatient (CLI) | payer MEDICARE, SELFPAY ==
[2020-08-15 12:40] LABS: INR 2.8 (0.9-1.1); Prothrombin Time 27.7 sec (9.3-11.0)
== END 2020-08-15 02:47 | disposition home or self-care (01) ==
LOC: LOS 02:46
PROVIDERS: PCP Emergency Medicine; Visit Provider Emergency Medicine
DX: I48.91 Unspecified atrial fibrillation (principal); Z79.01 Long term (current) use of anticoagulants
CPT/HCPCS: 36415; 85610

== ENCOUNTER → 2020-08-22 12:49 | Outpatient (BNVA) | payer MEDICARE, SELFPAY | PROVIDERS: PCP Emergency Medicine; Referring Provider Emergency Medicine; Visit Provider Nurse Practitioner Gerontology | DX: R97.20 Elevated prostate specific antigen [PSA] (principal); N40.1 Benign prostatic hyperplasia with lower urinary tract symptoms; R35.1 Nocturia; N41.9 Inflammatory disease of prostate, unspecified | CPT/HCPCS: 99215 ==

== ENCOUNTER 2020-09-17 03:34 | Outpatient (CLI) | payer MEDICARE, SELFPAY ==
[2020-09-17 12:31] LABS: HCT 47.5 % (40.0-50.0); MCH 28.5 pg (27.0-33.0); MCHC 31.6 % (32.0-36.0); MCV 90.3 fL (80-95); MPV 10.2 fL (8.0-11.0); Nucleated RBC 0 %; Platelet Count 314 10^3/uL (130-400); RBC 5.26 10^6/uL (4.36-5.78); RDW 12.9 % (11.8-14.1); RDW-SD 42.5 fL; WBC 12.12 10^3/uL (4.4-10.8)
[2020-09-17 12:38] LABS: INR 3.6 (0.9-1.1); Prothrombin Time 34.7 sec (9.3-11.0)
[2020-09-17 14:18] LABS: Absolute Neutrophil Count 6.91 10^3/uL (1.2-6.7)
[2020-09-17 14:19] LABS: Absolute Eosinophil Count 0.73 10^3/uL (0.0-0.7); Absolute Lymphocyte Count 2.79 10^3/uL (1.2-3.4); Absolute Monocyte Count 1.58 10^3/uL (0.1-0.8); Atypical Lymphocytes % 5; Diff Comment Manual Differential; Myelocytes % 1; RBC Morphology Normal
[2020-09-17 17:35] LABS: PSA, Diagnostic 4.8 ng/mL (0.0-6.5)
== END 2020-09-17 03:35 | disposition home or self-care (01) ==
LOC: LOS 03:34
PROVIDERS: Nurse Practitioner Gerontology; PCP Emergency Medicine; Visit Provider Emergency Medicine
DX: C61 Malignant neoplasm of prostate (principal); R97.20 Elevated prostate specific antigen [PSA]; D72.829 Elevated white blood cell count, unspecified; I48.91 Unspecified atrial fibrillation
CPT/HCPCS: 36415; 84153; 85025; 85610

== ENCOUNTER 2020-09-27 01:37 | Outpatient (CLI) | payer MEDICARE, SELFPAY ==
[2020-09-27 12:43] LABS: INR 2.6 (0.9-1.1); Prothrombin Time 25.7 sec (9.3-11.0)
== END 2020-09-27 01:38 | disposition home or self-care (01) ==
PROVIDERS: PCP Emergency Medicine; Visit Provider Emergency Medicine
DX: I48.91 Unspecified atrial fibrillation (principal); Z79.01 Long term (current) use of anticoagulants
CPT/HCPCS: 36415; 85610

== ENCOUNTER 2020-10-22 08:40 | Outpatient (CLI) | payer MEDICARE, SELFPAY ==
[2020-10-22 08:54] VITALS: BP 147/83; PULSE 63; RESP 16; TEMP 36.4; O2SAT 97
[2020-10-22 09:23] LABS: INR 1.2 (0.9-1.1); Prothrombin Time 11.9 sec (9.3-11.0)
--- NOTE | 2020-10-22 10:25 | DI.RAD_ITS ---
EXAM: XR PAIN CLINIC LUMBAR SP 2V CLINICAL HISTORY: Dx: Lumbar Radiculopathy TECHNIQUE: 2D and realtime digital imaging was performed. CONTRAST MATERIAL: Refer to procedure report. COMPARISON: No exams were available for comparison FINDINGS: Fluoroscopy was provided for Dr. Garcia during the performance of a lumbar epidural steroid injection. P asiya refer to the procedure report for complete details. Ka,r=11.35 mGy IMPRESSION:
[2020-10-22] MEDS: methylPREDNISolone ACETATE 80 MG/ML VIAL IJ (10:26)
[2020-10-22] MEDS: Omnipaque 240 MG/ML 50 ML BTL IJ (10:27)
--- NOTE | 2020-10-22 10:27 | PDOC.PAIN ---
Pain Clinic Procedure Note Procedure Note Procedure Note: Lumbar Epidural Steroid Injection Procedure Note Pre-operative diagnosis: lumbar radiculopathy due to lumbar spinal stenosis Post-operative diagnosis: same as above COMMENTS: patient has a history of atrial fibrillation for which he takes coumadin, he stopped his coumadin 5 days prior to today's scheduled procedure and his INR is 1.2. He reports dull ache across his lower back with occasional radiation down bilateral buttocks as well as left lateral thigh. Aggravating factors include sitting, bending. He enjoys fishing and hunting but has identified current pain level to be too severe to engage in these physical activities. he has had LESI x [address] Escalante in the past aiming for the L4-5 level which has provided sustained pain relief. He also underwent a course of bilateral SI joint injections which provided temporary pain relief. he is referred for a L4-5 LESI today after clinic evaluation by Ms Mi Lamas APRN in 06/10/2020. JASWANT CASAREZ has been referred to the [facility] for lumbar epidural steroid injection. The patient was greeted by the nurse who verified patients name and . Patient was then taken to the fluoroscopy suite. The patient was interviewed and the medial record reviewed. There were no medical, pharmacologic, radiographic, or other structural contraindications to attempting fluoroscopically guided lumbar epidural steroid injection. Risks and expected side effects as well as potential benefits of the procedure were reviewed and voiced concerns expressed. The patient consent form was signed and witnessed. Standard patient time-out procedure was performed. The patient was placed in the prone position on the fluoroscopy table and automated blood pressure cuff and pulse oximeter applied. The skin entry point for entering/approaching the epidural space by a L4-5 and marked. Following thorough chlorhexadine preparation of the skin and draping and 1% lidocaine infiltration of the skin entry point and subcutaneous tissues, a 18 gauge Touhy needle was placed under fluoroscopic guidance and with loss of resistance technique into the epidural space. Needle tip placement and depth were aided and confirmed by fluoroscopy. There was no paresthesia or return of blood or CSF through the needle. 1 cc's of Omnipaque 240 was injected with clear epidural spread confirmed with fluoroscopy. 80mg depomedrol was injected. Additional 0.5cc of preservative free 1% lidocaine and 0.5cc of preservative free normal saline was injected following the steroid. There was not any unusual discomfort expressed by JASWANT [employer]. He reports reproduction of pain down his buttocks and some pressure around his calf area. Patient's vital signs were stable throughout the procedure and were as recorded in nursing records. Follow up plans and appointments were discussed with patient. Post procedure instruction was given as documented in nursing records and having met discharge criteria and was discharged from the [facility]. COMMENTS: If this procedure is helpful, it can be completed up to 3 times per 12 months. If patient continues to experience dull ache across his lower back with radiation to bilateral buttocks, should consider diagnostic lumbar medial branch nerve block targetting the L4/5 and L5/S1 facets. I performed a lumbar extension exam today pre-procedure, Yanes's manuever reproduced patient's usual ache across his lower back. It is likely that patient has multifactorial pain generators including lumbar spinal stenosis causing lumbar radicular symptoms as well as facet mediated axial low back pain. Pre-procedure VAS score 6/10, post-procedure VAS score 0/10. I personally performed the entire procedure. Memo Livingston MD Pain Management
[2020-10-22 10:28] VITALS: BP 152/92; PULSE 66; RESP 17; O2SAT 99
== END 2020-10-22 08:41 | disposition home or self-care (01) ==
LOC: PC 08:40
PROVIDERS: PCP Emergency Medicine; Visit Provider Internal Medicine
DX: M54.16 Radiculopathy, lumbar region (principal)
CPT/HCPCS: 62323; 72100; 85610; J1040; Q9967

== ENCOUNTER 2020-10-30 04:19 | Outpatient (CLI) | payer MEDICARE, SELFPAY ==
[2020-10-30 13:33] LABS: INR 1.6 (0.9-1.1); Prothrombin Time 16.2 sec (9.3-11.0)
== END 2020-10-30 04:20 | disposition home or self-care (01) ==
PROVIDERS: PCP Emergency Medicine; Visit Provider Emergency Medicine
DX: I48.91 Unspecified atrial fibrillation (principal); Z79.01 Long term (current) use of anticoagulants
CPT/HCPCS: 36415; 85610

== ENCOUNTER → 2020-11-06 09:24 | Outpatient (BNVA) | payer MEDICARE, SELFPAY | PROVIDERS: PCP Emergency Medicine; Referring Provider Emergency Medicine; Visit Provider Nurse Practitioner Gerontology | DX: N40.1 Benign prostatic hyperplasia with lower urinary tract symptoms (principal); R97.20 Elevated prostate specific antigen [PSA]; R39.15 Urgency of urination; R35.0 Frequency of micturition; R35.1 Nocturia | CPT/HCPCS: 99214 ==

== ENCOUNTER 2020-11-07 02:04 | Outpatient (CLI) | payer MEDICARE, SELFPAY ==
[2020-11-07 12:52] LABS: INR 2.1 (0.9-1.1); Prothrombin Time 20.6 sec (9.3-11.0)
== END 2020-11-07 02:05 | disposition home or self-care (01) ==
PROVIDERS: PCP Emergency Medicine; Visit Provider Emergency Medicine
DX: I48.91 Unspecified atrial fibrillation (principal); Z79.01 Long term (current) use of anticoagulants
CPT/HCPCS: 36415; 85610

== ENCOUNTER 2020-11-14 03:01 | Outpatient (CLI) | payer MEDICARE, SELFPAY ==
[2020-11-14 12:29] LABS: INR 2.1 (0.9-1.1); Prothrombin Time 20.8 sec (9.3-11.0)
== END 2020-11-14 03:02 | disposition home or self-care (01) ==
LOC: LOS 03:01
PROVIDERS: PCP Emergency Medicine; Visit Provider Emergency Medicine
DX: I48.91 Unspecified atrial fibrillation (principal); Z79.01 Long term (current) use of anticoagulants
CPT/HCPCS: 36415; 85610

== ENCOUNTER 2020-11-28 02:58 | Outpatient (CLI) | payer MEDICARE, SELFPAY ==
[2020-11-28 12:29] LABS: Prothrombin Time 24.1 sec (9.3-11.0)
[2020-11-28 12:35] LABS: INR 2.4 (0.9-1.1)
== END 2020-11-28 02:59 | disposition home or self-care (01) ==
LOC: LOS 02:59
PROVIDERS: PCP Emergency Medicine; Visit Provider Emergency Medicine
DX: I48.91 Unspecified atrial fibrillation (principal); Z79.01 Long term (current) use of anticoagulants
CPT/HCPCS: 36415; 85610

== ENCOUNTER 2020-12-16 12:15 | Outpatient (CLI) | payer MEDICARE, SELFPAY ==
--- NOTE | 2020-12-16 11:45 | DI.RAD_ITS ---
Exam(s) XR SHOULDER LT COMPLETE 2+V EXAM: XR SHOULDER LT COMPLETE 2+V CLINICAL HISTORY: pain. TECHNIQUE: 2D digital imaging was performed. COMPARISON: No exams were available for comparison FINDINGS: No evidence of fracture or dislocation although there are advanced degenerative osteoarthritic narrow ing changes of the glenohumeral joint. Subacromial space is not diminished. Moderate degenerative c hanges in the AC joint. In addition, there is a calcific density measuring 1.5 x 1.0 cm located in t he medial recess sub coracoid recess. IMPRESSION: DATA REPOSITORY: RADIATION DOSE DELIVERED:
== END 2020-12-16 12:16 | disposition home or self-care (01) ==
LOC: DIORS 12:16
PROVIDERS: PCP Emergency Medicine; Referring Provider Emergency Medicine; Visit Provider Student in an Organized Health Care Education/Training Program
DX: M16.11 Unilateral primary osteoarthritis, right hip (principal); M16.12 Unilateral primary osteoarthritis, left hip; M19.012 Primary osteoarthritis, left shoulder; M25.512 Pain in left shoulder
CPT/HCPCS: 99213; 73030

== ENCOUNTER 2020-12-27 01:28 | Outpatient (CLI) | payer MEDICARE, SELFPAY ==
[2020-12-27 12:48] LABS: INR 2.5 (0.9-1.1); Prothrombin Time 24.6 sec (9.3-11.0)
== END 2020-12-27 01:29 | disposition home or self-care (01) ==
LOC: LOS 01:31
PROVIDERS: PCP Emergency Medicine; Visit Provider Emergency Medicine
DX: I48.91 Unspecified atrial fibrillation (principal); Z79.01 Long term (current) use of anticoagulants
CPT/HCPCS: 36415; 85610

== ENCOUNTER 2021-01-09 02:26 | Outpatient (CLI) | payer MEDICARE, SELFPAY ==
--- NOTE | 2021-01-09 09:30 | DI.RAD_ITS ---
Exam(s) RF JOINT INJECTION FLUORO GUID EXAM: RF JOINT INJECTION FLUORO GUID CLINICAL HISTORY: L HIP INJ UNDER FLUORO,LT HIP PAIN, M25.552 TECHNIQUE: Fluoroscopy provided. Radiologist not present. CONTRAST MATERIAL: None COMPARISON: No exams were available for comparison FINDINGS: Fluoroscopy was provided for therapeutic left hip injection Submitted image(s) reveal needle tip placement at the lateral aspect of the left femoral head. Small amount of intra-articular contrast is noted. Please refer to the procedure report for complete details. Cumulative Dose: Raghavendrar=1.19 mGy IMPRESSION: RADIATION DOSE DELIVERED:
--- NOTE | 2021-01-09 09:30 | DI.RAD_ITS ---
Exam(s) RF JOINT INJECTION FLUORO GUID EXAM: RF JOINT INJECTION FLUORO GUID CLINICAL HISTORY: L SHOULDER INJ UNDER FLUORO,LT SHOULDER PAIN, M25.512 TECHNIQUE: Fluoroscopy provided. Radiologist not present. CONTRAST MATERIAL: None COMPARISON: No exams were available for comparison FINDINGS: Fluoroscopy was provided for left shoulder therapeutic injection Submitted image(s) reveal needle placement the superomedial aspect of the humeral head. Intra-articu lar contrast was injected. Please refer to the procedure report for complete details. Cumulative Dose: Ka,r=0.311 mGy IMPRESSION: RADIATION DOSE DELIVERED:
--- NOTE | 2021-01-09 09:30 | DI.RAD_ITS ---
Exam(s) RF JOINT INJECTION FLUORO GUID EXAM: RF JOINT INJECTION FLUORO GUID CLINICAL HISTORY: R HIP INJ UNDER FLUORO,RT HIP PAIN, M25.551 TECHNIQUE: Fluoroscopy provided. Radiologist not present. CONTRAST MATERIAL: None COMPARISON: No exams were available for comparison FINDINGS: Fluoroscopy was provided for therapeutic right hip injection Submitted image(s) reveal position of the needle tip at the lateral aspect of the right femoral head. Small amount of intra-articular contrast is noted surrounding the femoral neck. Please refer to the procedure report for complete details. Cumulative Dose: kendell Mabry=0.753 mGy IMPRESSION: RADIATION DOSE DELIVERED:
--- NOTE | 2021-01-09 15:07 | W.PROCNOTE ---
Date of service: 01/09/21 Time of Service: 15:07 Procedure Note Date of procedure: 01/09/21 Procedure: Left Shoulder, Left Hip, and Right Hip Injection with Fluoroscopic Guidance Surgeon/Proceduralist/Physician: Aneesh Fitzgerald Procedure Diagnosis: Bilateral Hip Osteoarthritis and Left Glenohumeral Arthritis Procedure Indications: Julio Cesar has had persistent pain of both hips. Noninvasive measures have been tried and he has had previous success with injections; therfore, repeat injections were recommended. Additionally, Julio Cesar has had worsening pain of the left shoulder with arthritic changes seen on x-ray. To serve as both diagnostic and therapeutic, an injection under fluoroscopy was recommended. I had discussed the risks of the procedure and the patient elected to proceed. Procedure Description: Julio Cesar was greeted in the flouroscopy room. The correct sites were identified and the consent was reviewed with the patient and signed. The patient was then placed in the supine position on the fluoroscopy table. The RIGHT hip was then prepped with Chloraprep. The anterolateral injection starting point was identiifed by bony landmarks and fluoroscopy. The skin and soft tissue in the tract of the injection was anesthetized with 1% Lidocaine. A spinal needle was then inserted deep into the hip joint at the level of the lateral femoral neck under fluoroscopic guidance. A small amount of Omnipaque solution was injected to confirm intraarticular placement. Once confirmed, the hip was injected with 6cc of 0.5% Bupivicaine and 80mg of Depo-Medrol. A bandaid was placed on the injection site. The patient tolerated the procedure well. Attention was then turned to the LEFT hip was then prepped with Chloraprep. The anterolateral injection starting point was identiifed by bony landmarks and fluoroscopy. The skin and soft tissue in the tract of the injection was anesthetized with 1% Lidocaine. A spinal needle was then inserted deep into the hip joint at the level of the lateral femoral neck under fluoroscopic guidance. A small amount of Omnipaque solution was injected to confirm intraarticular placement. Once confirmed, the hip was injected with 6cc of 0.5% Bupivicaine and 80mg of Depo-Medrol. A bandaid was placed on the injection site. The patient tolerated the procedure well. Attention was then turned to the LEFT shoulder. This was prepped with ChloraPrep. The anterior shoulder injection point was marked on the skin and fluoroscopy was utilized to confirm the correct starting point over the superior medial aspect of the humeral head, preferably within the rotator interval. Once this was identified the skin and soft tissue was injected with 1% lidocaine. I then placed a spinal needle deep into the shoulder joint. This is confirmed to be within the joint after injecting a small amount of Omnipaque. I then injected 5 cc of 0.5% Bupivacaine and 40 mg of Depo-Medrol. He tolerated the injection well. A Band-Aid was placed i\on the injection site.
[2021-01-09] MEDS: Bupivacaine 0.5% Pres-Free 10 ML VIAL 5 ML IJ ×2 (15:30→15:34)
[2021-01-09] MEDS: methylPREDNISolone ACETATE 40 MG/ML VIAL IM (15:31)
[2021-01-09] MEDS: Omnipaque 300 MG/ML 10 ML BTL IJ (15:32)
[2021-01-09] MEDS: methylPREDNISolone ACETATE 80 MG/ML VIAL IM (15:38)
== END 2021-01-09 02:46 ==
PROVIDERS: PCP Emergency Medicine; Visit Provider Student in an Organized Health Care Education/Training Program
DX: M25.552 Pain in left hip (principal); M25.551 Pain in right hip; M25.512 Pain in left shoulder
CPT/HCPCS: 20610; 77002; J1030; J1040

== ENCOUNTER 2021-01-30 03:37 | Outpatient (CLI) | payer MEDICARE, SELFPAY ==
[2021-01-30 12:02] LABS: INR 2.7 (0.9-1.1); Prothrombin Time 26.9 sec (9.3-11.0)
== END 2021-01-30 03:38 | disposition home or self-care (01) ==
LOC: LOS 03:40
PROVIDERS: PCP Emergency Medicine; Visit Provider Emergency Medicine
DX: I48.91 Unspecified atrial fibrillation (principal); Z79.01 Long term (current) use of anticoagulants
CPT/HCPCS: 36415; 85610

== ENCOUNTER 2021-02-04 14:00 | Outpatient (REF) | payer MEDICARE, SELFPAY ==
[2021-02-04 18:49] LABS: Abs Immature Grans 0.12 10^3/uL (0.0-0.06); Absolute Eosinophil Count 0.56 10^3/uL (0.0-0.7); Absolute Monocyte Count 1.38 10^3/uL (0.1-0.8); Absolute Neutrophil Count 6.26 10^3/uL (1.2-6.7); Basophils % 0.9; Eosinophils % 5.2; HCT 46.3 % (40.0-50.0); HGB 15.1 g/dL (13.5-17.5); Immature Grans % 1.1; Lymphocytes % 21.5; MCH 29.2 pg (27.0-33.0); MCHC 32.6 % (32.0-36.0); MCV 89.4 fL (80-95); MPV 10.5 fL (8.0-11.0); Monocytes % 12.9; Neutrophils % 58.4; Nucleated RBC 0 %; Platelet Count 326 10^3/uL (130-400); RBC 5.18 10^6/uL (4.36-5.78); RDW 13.9 % (11.8-14.1); RDW-SD 45.8 fL; WBC 10.72 10^3/uL (4.4-10.8)
[2021-02-04 19:02] LABS: LDH 220 U/L (85-227); Uric Acid 7.5 mg/dL (3.5-7.2)
== END 2021-02-04 14:01 | disposition home or self-care (01) ==
LOC: LBN 14:00
PROVIDERS: PCP Emergency Medicine; Visit Provider Emergency Medicine
DX: I10 Essential (primary) hypertension (principal); D72.829 Elevated white blood cell count, unspecified; M25.571 Pain in right ankle and joints of right foot
CPT/HCPCS: 83615; 84550; 85025; 86140

== ENCOUNTER 2021-02-27 03:12 | Outpatient (CLI) | payer MEDICARE, SELFPAY ==
[2021-02-27 14:02] LABS: INR 3.7 (0.9-1.1); Prothrombin Time 36.2 sec (9.3-11.0)
== END 2021-02-27 03:13 | disposition home or self-care (01) ==
LOC: LOS 03:12
PROVIDERS: PCP Emergency Medicine; Visit Provider Emergency Medicine
DX: I48.91 Unspecified atrial fibrillation (principal); Z79.01 Long term (current) use of anticoagulants
CPT/HCPCS: 36415; 85610

== ENCOUNTER 2021-03-07 02:11 | Outpatient (CLI) | payer MEDICARE, SELFPAY ==
[2021-03-07 12:41] LABS: INR 4.2 (0.9-1.1)
== END 2021-03-07 02:12 | disposition home or self-care (01) ==
LOC: LOS 02:11
PROVIDERS: PCP Emergency Medicine; Visit Provider Emergency Medicine
DX: I48.91 Unspecified atrial fibrillation (principal); Z79.01 Long term (current) use of anticoagulants
CPT/HCPCS: 36415; 85610

== ENCOUNTER 2021-03-11 01:12 | Outpatient (CLI) | payer MEDICARE, SELFPAY ==
[2021-03-11 12:33] LABS: INR 1.6 (0.9-1.1); Prothrombin Time 16.3 sec (9.3-11.0)
== END 2021-03-11 01:13 | disposition home or self-care (01) ==
LOC: LOS 01:13
PROVIDERS: PCP Emergency Medicine; Visit Provider Emergency Medicine
DX: I48.91 Unspecified atrial fibrillation (principal); Z79.01 Long term (current) use of anticoagulants
CPT/HCPCS: 36415; 85610

== ENCOUNTER 2021-03-18 07:42 | Outpatient (CLI) | payer MEDICARE, SELFPAY ==
[2021-03-18 12:38] LABS: INR 1.8 (0.9-1.1); Prothrombin Time 17.4 sec (9.3-11.0)
== END 2021-03-18 07:43 | disposition home or self-care (01) ==
LOC: LOS 07:43
PROVIDERS: PCP Emergency Medicine; Visit Provider Emergency Medicine
DX: I48.91 Unspecified atrial fibrillation (principal); Z79.01 Long term (current) use of anticoagulants
CPT/HCPCS: 36415; 85610

== ENCOUNTER 2021-03-24 09:36 | Outpatient (CLI) | payer MEDICARE, SELFPAY ==
[2021-03-24 12:36] LABS: INR 2.2 (0.9-1.1); Prothrombin Time 21.8 sec (9.3-11.0)
== END 2021-03-24 09:37 | disposition home or self-care (01) ==
LOC: LOS 09:37
PROVIDERS: PCP Emergency Medicine; Visit Provider Emergency Medicine
DX: I48.91 Unspecified atrial fibrillation (principal); Z79.01 Long term (current) use of anticoagulants
CPT/HCPCS: 36415; 85610

== ENCOUNTER 2021-04-01 11:53 | Outpatient (CLI) | payer MEDICARE, SELFPAY ==
--- NOTE | 2021-04-01 06:00 | DI.RAD_ITS ---
Exam(s) XR PAIN CLINIC LUMBAR SP 2V EXAM: XR PAIN CLINIC LUMBAR SP 2V CLINICAL HISTORY: Dx: Lumbar Radiculopathy TECHNIQUE: 2D and realtime digital imaging was performed. CONTRAST MATERIAL: Refer to procedure report. COMPARISON: No exams were available for comparison FINDINGS: Fluoroscopy was provided for Dr. Livingston during the performance of a lumbar epidural steroid injection. Please refer to the procedure report for complete details. Ka,r=15.66 mGy IMPRESSION: RADIATION DOSE DELIVERED:
[2021-04-01 12:49] VITALS: BP 139/79; PULSE 63; RESP 16; TEMP 36.8; O2SAT 96
[2021-04-01 12:53] LABS: INR 1.1 (0.9-1.1); Prothrombin Time 11.1 sec (9.3-11.0)
--- NOTE | 2021-04-01 13:36 | PDOC.PAIN ---
Pain Clinic Procedure Note Procedure Note Procedure Note: Lumbar Epidural Steroid Injection Procedure Note Pre-operative diagnosis: lumbar radiculopathy due to lumbar spinal stenosis Post-operative diagnosis: same as above Pre-procedure VAS score: 4/10 Post-procedure VAS score: 0/10 COMMENTS: patient has a history of atrial fibrillation for which he takes coumadin, he stopped his coumadin 5 days prior to today's scheduled procedure and his INR is 1.1. He reports dull ache across his lower back with occasional radiation down bilateral buttocks as well as left lateral thigh. Aggravating factors include sitting, bending. He enjoys fishing and hunting but has identified current pain level to be too severe to engage in these physical activities. he has had LESI x [address] Escalante in the past aiming for the L4-5 level which has provided sustained pain relief. He also underwent a course of bilateral SI joint injections which provided temporary pain relief. Patient responded well to most recent L4-5 LESI which per patient hit the spot. He returns for a repeat injection. JASWANT CASAREZ has been referred to the [facility] for lumbar epidural steroid injection. The patient was greeted by the nurse who verified patients name and . Patient was then taken to the fluoroscopy suite. The patient was interviewed and the medial record reviewed. There were no medical, pharmacologic, radiographic, or other structural contraindications to attempting fluoroscopically guided lumbar epidural steroid injection. Risks and expected side effects as well as potential benefits of the procedure were reviewed and voiced concerns expressed. The patient consent form was signed and witnessed. Standard patient time-out procedure was performed. The patient was placed in the prone position on the fluoroscopy table and automated blood pressure cuff and pulse oximeter applied. The skin entry point for entering/approaching the epidural space by a L4-5 and marked. Following thorough chlorhexadine preparation of the skin and draping and 1% lidocaine infiltration of the skin entry point and subcutaneous tissues, a 18 gauge Touhy needle was placed under fluoroscopic guidance and with loss of resistance technique into the epidural space. Needle tip placement and depth were aided and confirmed by fluoroscopy. There was no paresthesia or return of blood or CSF through the needle. 1 cc's of Omnipaque 240 was injected with clear epidural spread confirmed with fluoroscopy. 80mg depomedrol was injected. Additional 1cc of preservative free 1% lidocaine and 0.5cc of preservative free normal saline was injected following the steroid. There was not any unusual discomfort expressed by JASWANT GLASS [employer]ER. Patient's vital signs were stable throughout the procedure and were as recorded in nursing records. Follow up plans and appointments were discussed with patient. Post procedure instruction was given as documented in nursing records and having met discharge criteria and was discharged from the [facility]. COMMENTS:Patient tolerated procedure well without issue. Please note, given patient's body habitus, the touhy needle was at hub when BAILEE was obtained. Consider use of 5'' Touhy for future injection if targeting L4-5 space. According to MARTHA guideline, patient may resume his coumadin ideally the next day. Pre-procedure VAS score 4/10, post-procedure VAS score 0/10. I personally performed the entire procedure. Memo Livingston MD Pain Management
[2021-04-01] MEDS: Omnipaque 240 MG/ML 50 ML BTL IJ (13:42)
[2021-04-01] MEDS: methylPREDNISolone ACETATE 80 MG/ML VIAL IJ (13:42)
[2021-04-01 13:44] VITALS: BP 153/86; PULSE 63; RESP 15; O2SAT 97
== END 2021-04-01 11:54 | disposition home or self-care (01) ==
LOC: PC 11:53
PROVIDERS: PCP Emergency Medicine; Visit Provider Internal Medicine
DX: Z79.01 Long term (current) use of anticoagulants (principal); M54.16 Radiculopathy, lumbar region
CPT/HCPCS: 36415; 62323; 72100; 85610; J1040; Q9967

== ENCOUNTER 2021-04-08 02:25 | Outpatient (CLI) | payer MEDICARE, SELFPAY ==
[2021-04-08 12:38] LABS: INR 1.4 (0.9-1.1); Prothrombin Time 14.1 sec (9.3-11.0)
== END 2021-04-08 02:26 | disposition home or self-care (01) ==
LOC: LOS 02:25
PROVIDERS: PCP Emergency Medicine; Visit Provider Emergency Medicine
DX: I48.91 Unspecified atrial fibrillation (principal)
CPT/HCPCS: 36415; 85610

== ENCOUNTER 2021-04-16 01:40 | Outpatient (CLI) | payer MEDICARE, SELFPAY ==
[2021-04-16 11:18] LABS: INR 2.2 (0.9-1.1); Prothrombin Time 21.8 sec (9.3-11.0)
== END 2021-04-16 01:41 | disposition home or self-care (01) ==
LOC: LOS 01:40
PROVIDERS: PCP Emergency Medicine; Visit Provider Emergency Medicine
DX: I48.91 Unspecified atrial fibrillation (principal)
CPT/HCPCS: 36415; 85610

== ENCOUNTER 2021-05-16 10:48 | Outpatient (CLI) | payer MEDICARE, SELFPAY ==
[2021-05-16 12:48] LABS: INR 2.9 (0.9-1.1); Prothrombin Time 28.3 sec (9.3-11.0)
== END 2021-05-16 10:49 | disposition home or self-care (01) ==
LOC: LOS 10:49
PROVIDERS: PCP Emergency Medicine; Visit Provider Emergency Medicine
DX: I48.91 Unspecified atrial fibrillation (principal)
CPT/HCPCS: 36415; 85610

== ENCOUNTER 2021-06-03 18:46 | Outpatient (REF) | payer MEDICARE, SELFPAY ==
[2021-06-05 16:20] LABS: COVID-19 RT-PCR UVMMC Result Negative (Negative)
== END 2021-06-03 18:47 | disposition home or self-care (01) ==
LOC: LBN 18:46
PROVIDERS: PCP Emergency Medicine; Visit Provider Family Medicine
DX: Z20.822 Contact with and (suspected) exposure to COVID-19 (principal); R09.89 Other specified symptoms and signs involving the circulatory and respiratory systems
CPT/HCPCS: U0003

== ENCOUNTER 2021-07-07 03:55 | Outpatient (CLI) | payer MEDICARE, SELFPAY ==
[2021-07-07 10:10] LABS: HCT 46.7 % (40.0-50.0); HGB 14.6 g/dL (13.5-17.5); MCH 28.7 pg (27.0-33.0); MCHC 31.3 % (32.0-36.0); MCV 91.7 fL (80-95); MPV 9.3 fL (8.0-11.0); Platelet Count 318 10^3/uL (130-400); RBC 5.09 10^6/uL (4.36-5.78); RDW 13.9 % (11.8-14.1); RDW-SD 47.4 fL; WBC 10.33 10^3/uL (4.4-10.8)
[2021-07-07 10:28] LABS: INR 2.4 (0.9-1.1)
[2021-07-07 11:44] LABS: Anion Gap 6.4 mmol/L (3-11); BUN 19 mg/dL (7-18); CO2 30.6 mmol/L (21.0-32.0); Calcium 8.8 mg/dL (8.5-10.1); Chloride 106 mmol/L (98-107); Glucose 91 mg/dL (74-106); Potassium 4.2 mmol/L (3.5-5.1); Sodium 143 mmol/L (136-145); Uric Acid 4.2 mg/dL (3.5-7.2)
== END 2021-07-07 03:56 | disposition home or self-care (01) ==
LOC: LBO 03:55
PROVIDERS: PCP Emergency Medicine; Visit Provider Family Medicine
DX: D72.829 Elevated white blood cell count, unspecified (principal); I10 Essential (primary) hypertension; M10.9 Gout, unspecified; J06.9 Acute upper respiratory infection, unspecified; I48.91 Unspecified atrial fibrillation
CPT/HCPCS: 36415; 80048; 85027; 84550; 85610

== ENCOUNTER 2021-07-10 11:21 | Outpatient (CLI) | payer MEDICARE, SELFPAY ==
--- NOTE | 2021-07-10 06:00 | DI.RAD_ITS ---
Exam(s) XR PAIN CLINIC LUMBAR SP 2V EXAM: XR PAIN CLINIC LUMBAR SP 2V CLINICAL HISTORY: DX: Lumbar Radiculopathy. TECHNIQUE: Fluoroscopy was provided for the referring physician for guidance with performing injecti on procedure. COMPARISON: No exams were available for comparison FINDINGS: Please see procedure note for details. Fluoro time 28.9 seconds RADIATION DOSE DELIVERED: Raghavendrar= 17.32 mGy
[2021-07-10 11:56] VITALS: BP 139/73; PULSE 71; RESP 18; TEMP 36.5; O2SAT 97
[2021-07-10 12:03] LABS: INR 1.3 (0.9-1.1); Prothrombin Time 13.1 sec (9.3-11.0)
[2021-07-10] MEDS: methylPREDNISolone ACETATE 80 MG/ML VIAL IJ (13:04)
[2021-07-10] MEDS: Omnipaque 240 MG/ML 50 ML BTL IJ (13:04)
[2021-07-10 13:11] VITALS: BP 152/81; PULSE 64; RESP 18; O2SAT 98
--- NOTE | 2021-07-10 13:11 | PDOC.PAIN ---
Pain Clinic Procedure Note Procedure Note Procedure Note: Lumbar Epidural Steroid Injection Procedure Note COMMENTS: He has been off of his Coumadin as recommended by his provider. His INR today is 1.3. He last had this procedure on 04/01/21 and 10/22/20, both by Dr. Livingston. Pre-procedure pain VAS was 9/10. DX: Lumbar radiculopathy Julio Cesar Rangel has been referred to the [facility] for lumbar epidural steroid injection. The patient was greeted by the nurse who verified patients name and . Patient was then taken to the fluoroscopy suite. The patient was interviewed and the medial record reviewed. There were no medical, pharmacologic, radiographic, or other structural contraindications to attempting fluoroscopically guided lumbar epidural steroid injection. Risks and expected side effects as well as potential benefits of the procedure were reviewed and voiced concerns expressed. The patient consent form was signed and witnessed. Standard patient time-out procedure was performed. The patient was placed in the prone position on the fluoroscopy table and automated blood pressure cuff and pulse oximeter applied. The skin entry point for entering/approaching the epidural space at L4-L5 (on the left) and marked. Following thorough chlorhexadine preparation of the skin and draping and 1% lidocaine infiltration of the skin entry point and subcutaneous tissues, a 18 gauge Touhy needle was placed under fluoroscopic guidance and with loss of resistance technique into the epidural space. Needle tip placement and depth were aided and confirmed by fluoroscopy. There was no paresthesia or return of blood or CSF through the needle. 1 cc's of Omnipaque 240 was injected with clear epidural spread confirmed with fluoroscopy. 80mg depomedrol was injected. There was not any unusual discomfort expressed by Julio Cesar Rangel. Patient's vital signs were stable throughout the procedure and were as recorded in nursing records. Follow up plans and appointments were discussed with patient. Post procedure instruction was given as documented in nursing records and having met discharge criteria and was discharged from the [facility]. COMMENTS: If this procedure is helpful, it can be completed up to 3 times per 12 months. Post-procedure pain VAS = 0/10. Elvin Oro DO, MPH [facility]
== END 2021-07-10 11:22 | disposition home or self-care (01) ==
LOC: PC 11:22
PROVIDERS: PCP Emergency Medicine; Visit Provider Preventive Medicine Occupational Medicine
DX: Z79.01 Long term (current) use of anticoagulants (principal); M54.16 Radiculopathy, lumbar region
CPT/HCPCS: 62323; 36415; 72100; 85610; J1040; Q9967

== ENCOUNTER 2021-07-15 02:33 | Outpatient (CLI) | payer MEDICARE, SELFPAY ==
[2021-07-15 11:13] LABS: INR 1.2 (0.9-1.1); Prothrombin Time 12.1 sec (9.3-11.0)
== END 2021-07-15 02:34 | disposition home or self-care (01) ==
LOC: LBO 02:33
PROVIDERS: PCP Emergency Medicine; Visit Provider Emergency Medicine
DX: I48.91 Unspecified atrial fibrillation (principal)
CPT/HCPCS: 36415; 85610

== ENCOUNTER 2021-07-22 04:30 | Outpatient (CLI) | payer MEDICARE, SELFPAY ==
[2021-07-22 14:05] LABS: INR 1.9 (0.9-1.1); Prothrombin Time 18.9 sec (9.3-11.0)
== END 2021-07-22 04:31 | disposition home or self-care (01) ==
LOC: LBO 04:30
PROVIDERS: PCP Emergency Medicine; Visit Provider Emergency Medicine
DX: I48.91 Unspecified atrial fibrillation (principal); Z79.01 Long term (current) use of anticoagulants
CPT/HCPCS: 36415; 85610

== ENCOUNTER 2021-08-21 02:03 | Outpatient (CLI) | payer MEDICARE, SELFPAY ==
[2021-08-21 09:14] LABS: INR 2.1 (0.9-1.1); Prothrombin Time 20.3 sec (9.3-11.0)
== END 2021-08-21 02:04 | disposition home or self-care (01) ==
LOC: LBO 02:04
PROVIDERS: PCP Family Medicine; Visit Provider Emergency Medicine
DX: I48.91 Unspecified atrial fibrillation (principal)
CPT/HCPCS: 36415; 85610

== ENCOUNTER 2021-09-04 01:29 | Outpatient (CLI) | payer MEDICARE, SELFPAY ==
--- NOTE | 2021-09-04 07:00 | DI.MRI_ITS ---
Exam(s) MR LUMBAR SPINE WO EXAM: MR LUMBAR SPINE WO CLINICAL HISTORY: worsening bilat leg pain,top of feet,lumbosacral radiculitis,m54.17. TECHNIQUE: Multiplanar multisequence MRI was performed. COMPARISON: MR MRI - LUMBAR SPINE WO CONTRAST from 01/16/2016 FINDINGS: MR examination lumbosacral spine was performed according to the usual protocol. Examination is krish red with prior examination of December 2015. Note is again made of a chronic L1 vertebral body compression fracture with minimal posterior cortex deformity unchanged from prior examination. No evidence of central canal spinal stenosis. Conus med ullaris appears intact. Note is made of minute apparent small nerve root cyst at the T11-12 level on the right. No other sig nificant findings at this level. No significant findings at T12-L1 level. No significant findings at L1-2 level, no evidence of central canal spinal stenosis, neural foraminal stenosis, or disc herniation. No significant findings at L2-3 level, or L3-4 level, no evidence of central canal spinal stenosis, n eural foraminal stenosis, or disc herniation. At L4-5, there is a small central disc herniation, unchanged from prior study. No gross evidence of neural impingement. No central canal spinal stenosis or neural foraminal stenosis. Mild disc bulge at L5-S1, no central canal spinal stenosis, neural foraminal stenosis, or disc hernia tion. IMPRESSION: No acute findings. 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 DATA REPOSITORY:
== END 2021-09-04 01:49 ==
PROVIDERS: PCP Family Medicine; Visit Provider Preventive Medicine Occupational Medicine
DX: M54.17 Radiculopathy, lumbosacral region (principal); M51.26 Other intervertebral disc displacement, lumbar region
CPT/HCPCS: 72148

== ENCOUNTER 2021-09-17 10:25 | Outpatient (CLI) | payer MEDICARE, SELFPAY ==
--- NOTE | 2021-09-17 06:00 | DI.RAD_ITS ---
Exam(s) XR PAIN CLINIC LUMBAR SP 2V EXAM: XR PAIN CLINIC LUMBAR SP 2V CLINICAL HISTORY: Dx: Lumbar Radiculopathy TECHNIQUE: 2D and realtime digital imaging was performed. Radiologist not present. CONTRAST MATERIAL: None. COMPARISON: No exams were available for comparison FINDINGS: Fluoroscopy was provided for pain management therapy. Please refer to procedure report or details. Cumulative dose: Ka,r=11.26 mGy IMPRESSION: RADIATION DOSE DELIVERED:
[2021-09-17 10:43] VITALS: BP 121/75; PULSE 73; RESP 18; TEMP 36.6; O2SAT 96
[2021-09-17 11:09] LABS: INR 1.2 (0.9-1.1); Prothrombin Time 12.2 sec (9.3-11.0)
[2021-09-17] MEDS: methylPREDNISolone ACETATE 80 MG/ML VIAL IJ (11:56)
[2021-09-17] MEDS: Omnipaque 240 MG/ML 50 ML BTL IJ (11:58)
[2021-09-17 12:06] VITALS: BP 156/84; PULSE 74; RESP 18; O2SAT 97
--- NOTE | 2021-09-17 12:54 | PDOC.PAIN ---
Pain Clinic Procedure Note Procedure Note Procedure Note: Lumbar Epidural Steroid Injection Procedure Note COMMENTS:I previously evaluated the patient in the clinic. He has held his Coumadin and his INR this AM is 1.2. Pre-procedure pain VAS was 8/10. Dx: Lumbosacral radiculopathy Julio Cesar Rangel has been referred to the [facility] for lumbar epidural steroid injection. The patient was greeted by the nurse who verified patients name and . Patient was then taken to the fluoroscopy suite. The patient was interviewed and the medial record reviewed. There were no medical, pharmacologic, radiographic, or other structural contraindications to attempting fluoroscopically guided lumbar epidural steroid injection. Risks and expected side effects as well as potential benefits of the procedure were reviewed and voiced concerns expressed. The patient consent form was signed and witnessed. Standard patient time-out procedure was performed. The patient was placed in the prone position on the fluoroscopy table and automated blood pressure cuff and pulse oximeter applied. The skin entry point for entering/approaching the epidural space at L5-S1 and marked. Following thorough chlorhexadine preparation of the skin and draping and 1% lidocaine infiltration of the skin entry point and subcutaneous tissues, a 18 gauge Touhy needle was placed under fluoroscopic guidance and with loss of resistance technique into the epidural space. Needle tip placement and depth were aided and confirmed by fluoroscopy. There was no paresthesia or return of blood or CSF through the needle. 1 cc's of Omnipaque 240 was injected with clear epidural spread confirmed with fluoroscopy. 80mg depomedrol was injected. There was not any unusual discomfort expressed by Julio Cesar Rangel. Patient's vital signs were stable throughout the procedure and were as recorded in nursing records. Follow up plans and appointments were discussed with patient. Post procedure instruction was given as documented in nursing records and having met discharge criteria and was discharged from the [facility]. COMMENTS: If this procedure is helpful, it can be completed up to 3 times per 12 months. Post-procedure pain VAS was 2/10. He is going to call in 2 weeks to let us know how he is doing. If no improvement, we will look at other options for pain control. Elvin Oro DO, MPH [facility]-Pain Management [facility]
== END 2021-09-17 10:26 | disposition home or self-care (01) ==
LOC: PC 10:25
PROVIDERS: PCP Family Medicine; Visit Provider Preventive Medicine Occupational Medicine
DX: I48.91 Unspecified atrial fibrillation (principal); M54.17 Radiculopathy, lumbosacral region
CPT/HCPCS: 62323; 72100; 85610; J1040; Q9967

== ENCOUNTER 2021-10-02 02:09 | Outpatient (CLI) | payer MEDICARE, SELFPAY ==
[2021-10-02 14:54] LABS: INR 1.8 (0.9-1.1); Prothrombin Time 17.4 sec (9.3-11.0)
== END 2021-10-02 02:10 | disposition home or self-care (01) ==
LOC: LBO 02:09
PROVIDERS: Emergency Medicine; PCP Family Medicine; Visit Provider Family Medicine
DX: I48.91 Unspecified atrial fibrillation (principal); Z79.01 Long term (current) use of anticoagulants
CPT/HCPCS: 36415; 85610

== ENCOUNTER 2021-10-09 02:21 | Outpatient (CLI) | payer MEDICARE, SELFPAY ==
[2021-10-09 13:12] LABS: INR 2.4 (0.9-1.1); Prothrombin Time 23.5 sec (9.3-11.0)
[2021-10-09 13:14] LABS: Uric Acid 4.8 mg/dL (3.5-7.2)
== END 2021-10-09 02:22 | disposition home or self-care (01) ==
LOC: LBO 02:21
PROVIDERS: PCP Family Medicine; Visit Provider Family Medicine
DX: M10.9 Gout, unspecified (principal); I48.91 Unspecified atrial fibrillation; Z79.01 Long term (current) use of anticoagulants
CPT/HCPCS: 36415; 84550; 85610

== ENCOUNTER 2021-10-19 00:51 | Emergency (ER) | payer MEDICARE, SELFPAY ==
[2021-10-19 01:03] VITALS: BP 153/90; PULSE 82; RESP 18; TEMP 37.1; O2SAT 96
--- NOTE | 2021-10-19 01:24 | W.ED.GENAD ---
Discharge Plan Disposition Patient Disposition: HOME Condition: Good Discharge Details Clinical Impression: Sacroiliac joint pain, Back pain Primary Care Provider: Almas Mcgraw ED Provider: Sukhdev Barillas Home Meds and New Rx's Prescriptions: New lidocaine [Lidoderm] 1 PATCH patch 1 patch Topical Q24H Qty: 4 0RF Continued ProAir RespiClick 90 mcg/actuation aerosol powdr breath activated 2 inh inhalation Q6H PRN (Reason: shortness of breath or wheezing) Qty: 1 2RF allopurinol 100 mg tablet 100 mg PO DAILY Qty: 90 3RF triamcinolone acetonide [Nasacort] 55 mcg aerosol,spray 2 spray intranasal DAILY Qty: 16.9 2RF Rx Instructions: administer into each nostril amlodipine 5 mg tablet 5 mg PO DAILY Qty: 90 3RF methocarbamol 500 mg tablet 500 mg PO TID PRN (Reason: muscle spasm) Qty: 30 1RF tramadol 50 mg tablet 25 - 50 mg PO BID MDD 2 tabs PRN (Reason: pain) Qty: 56 2RF gabapentin 300 mg capsule 300 mg PO TID Qty: 90 2RF losartan 100 mg tablet 100 mg PO DAILY Qty: 90 3RF azelastine 137 mcg (0.1 %) aerosol,spray 1 spray intranasal BID Qty: 30 2RF Rx Instructions: administer into each nostril metoprolol tartrate 50 mg tablet 25 mg PO BID Qty: 90 3RF finasteride [Proscar] 5 mg tablet 5 mg PO QAM Qty: 90 3RF warfarin 2.5 mg tablet 2.5 mg PO DIRECTED Qty: 180 4RF Protocol: Dose Management Condition: Wednesday Dose/Route: 2.5 mg Instruction: 1 x 2.5 mg tablet Condition: Wednesday Dose/Route: 5 mg Instruction: 2 x 2.5 mg tablets Condition: Wednesday Dose/Route: 2.5 mg Instruction: 1 x 2.5 mg tablet Condition: Wednesday Dose/Route: 5 mg Instruction: 2 x 2.5 mg tablets Condition: Dose/Route: 2.5 mg Instruction: 1 x 2.5 mg tablet Condition: Wednesday Dose/Route: 5 mg Instruction: 2 x 2.5 mg tablets Condition: Wednesday Dose/Route: 2.5 mg Instruction: 1 x 2.5 mg tablet Protocol Text: Adjustment Start Date: 10/09/21 INR Value: 2.4 INR Date: 10/09/21 Recheck Date: 11/08/21 acetaminophen 500 mg tablet 1,000 mg PO Q8H PRN (Reason: pain) Qty: 90 3RF Discharge Instructions Instructions: Back Pain (ED) Additional Instructions: At this time your pain appears to be consistent with your chronic low back pain as well as sacroiliac joint pain. Please continue to take Tylenol 500 mg every 6 hours. Continue to take your home muscle relaxants as needed. You have been given a few tablets of [place] pain medicine. Please take these as needed for pain. Please use the Lidoderm patch on your back. If you notice to be helpful, please fill the prescription for additional patches for continued help. Please follow-up closely with your pain center specialist. If you notice any worsening of your symptoms, or any new symptoms such as vomiting, diarrhea, fever, chills, shortness of breath, chest pain, numbness, weakness, numbness or tingling in the groin, bowel or bladder incontinence, or fainting , please return immediately to the emergency department for reevaluation. Please follow up with your primary care provider as soon as possible for reassessment and reevaluation. As always, it was a pleasure participating in your medical care today. Referrals: Almas Mcgraw MD [Primary Care Provider] - Aneesh Fitzgerald MD [ [facility] STAFF PHYSICIAN] - Medical Decision Making This is an 81-year-old male with a past medical history of atrial fibrillation on Coumadin, hypertension, high cholesterol, chronic back pain, chronic hip pain, chronic shoulder pain. He has seen Dr. Srinivasa Fitzgerald and had previous injections in his hip and shoulders, he is seeing the pain clinic regularly for treatment of his back pain. Patient had a negative MRI of the spine 1 month ago. He presents today for evaluation of pain in his left lower back. Patient states that his back pain originally started 10 years ago after an accident. He has a history of fractures in his back, which is protocol. Chronic pain. He does have some mild disc bulge at L4-L5. He states that over the last week his pain has gotten notably worse, has been more resistant to his normal muscle relaxants and Tylenol. He did take a half of a tramadol tonight and that did not help his pain. Pain is located in the left lower back around the spine and the SI joint. It is worse when he moves, sits upright or laying on his left side. It is improved in certain positions of laying. He admits to chronic tingling down the lateral aspect of his left leg which is unchanged. He admits to chronic mild weakness of the left lower extremity which he also admits is unchanged. He denies any recent falls or trauma. Patient denies any saddle anesthesia, numbness or tingling in the groin, change in sensation when wiping. Patient denies any bowel or bladder incontinence, leakage, or retention. Patient denies any atypical weakness in the lower extremities, atypical falls or imbalance. Physical exam demonstrates well-appearing male, exam of the back demonstrates no midline tenderness for the cervical thoracic or lumbar sacral spine. He does have mild left paraspinal tenderness around L4-L5 and over the left SI joint. No signs of cauda equina syndrome. No midline tenderness. No weakness of the lower extremity. He has good dorsiflexion of the great toe. No bowel or bladder incontinence. He has good rectal tone. Reviewed the patient's work-up demonstrates an unremarkable MRI within the last month. He denies any recent falls or traumas. I suspect the patient's symptoms are reflective of his chronic lower radiculopathy, but also demonstrated a component of left SI joint arthritis. With a notable radiographic work-up just recently, I do not see an indication for any new emergent imaging at this time as his symptoms are very similar/identical to his previous chronic symptoms. Reviewed the patient previous INR levels demonstrate that he seems to be well managed for his INR level, with no new trauma, and no history of a significantly supratherapeutic INR, his symptoms would appear clinically inconsistent at this time with a spinal epidural hematoma. At this time we will give a localized dose of Solu-Medrol for the last buttock/hip region, we will give a dose of cyclobenzaprine here, which she has also at home and recommends that he continues taking, will also give him 3 [place] tablet to take for breakthrough pain while he awaits follow-up at [facility] specialty pain clinic. With no signs of acute neurovascular compromise for his spine, no other significant red flags on exam, I do feel the patient be discharged home with close follow-up. We will also apply Lidoderm patch. Discussed red flags which to return. I have extensively reviewed the treatment plan and discharge instructions with the patient. I have addressed all patient concerns at this time. The patient was made aware of what symptoms to monitor for that would warrant a return to the emergency department. Discussed the plan with the patient, they demonstrate verbal understanding and agreement with our assessment and plan at this time. The documentation in this chart was dictated using [employer] dictation software. Please excuse any dictation errors. HPI General Date/Time Provider Initiated Documentation: 10/19/21 01:03. HPI Narrative: This is an 81-year-old male with a past medical history of atrial fibrillation on Coumadin, hypertension, high cholesterol, chronic back pain, chronic hip pain, chronic shoulder pain. He has seen Dr. Srinivasa Fitzgerald and had previous injections in his hip and shoulders, he is seeing the pain clinic regularly for treatment of his back pain. Patient had a negative MRI of the spine 1 month ago. He presents today for evaluation of pain in his left lower back. Patient states that his back pain originally started 10 years ago after an accident. He has a history of fractures in his back, which is protocol. Chronic pain. He does have some mild disc bulge at L4-L5. He states that over the last week his pain has gotten notably worse, has been more resistant to his normal muscle relaxants and Tylenol. He did take a half of a tramadol tonight and that did not help his pain. Pain is located in the left lower back around the spine and the SI joint. It is worse when he moves, sits upright or laying on his left side. It is improved in certain positions of laying. He admits to chronic tingling down the lateral aspect of his left leg which is unchanged. He admits to chronic mild weakness of the left lower extremity which he also admits is unchanged. He denies any recent falls or trauma. Patient denies any saddle anesthesia, numbness or tingling in the groin, change in sensation when wiping. Patient denies any bowel or bladder incontinence, leakage, or retention. Patient denies any atypical weakness in the lower extremities, atypical falls or imbalance. Related Data Home Medications Medication Instructions Recorded Confirmed acetaminophen 500 mg tablet 1,000 mg PO Q8H PRN #90 tab 11/21/19 04/18/22 metoprolol tartrate 50 mg tablet 25 mg PO BID #90 tab 10/24/20 10/13/21 albuterol sulfate 90 mcg/actuation 2 inh INHALATION Q6H PRN #1 ea 06/03/21 10/13/21 breath activated powder inhaler (ProAir RespiClick) allopurinol 100 mg tablet 100 mg PO DAILY #90 tab 06/03/21 10/13/21 finasteride 5 mg tablet (Proscar) 5 mg PO QAM #90 tab 07/01/21 10/13/21 warfarin 2.5 mg tablet 2.5 mg PO DIRECTED #180 tab 07/15/21 10/13/21 azelastine 137 mcg (0.1 %) nasal 1 spray INTRANASAL BID #30 ml 08/14/21 10/13/21 spray aerosol gabapentin 300 mg capsule 300 mg PO TID #90 tab-cap 08/14/21 10/13/21 losartan 100 mg tablet 100 mg PO DAILY #90 tab 08/14/21 10/13/21 triamcinolone acetonide 55 mcg 2 spray INTRANASAL DAILY #16.9 ml 08/29/21 10/13/21 nasal spray aerosol (Nasacort) amlodipine 5 mg tablet 5 mg PO DAILY #90 tab 10/13/21 10/13/21 methocarbamol 500 mg tablet 500 mg PO TID PRN #30 tab 10/13/21 10/13/21 tramadol 50 mg tablet 25 - 50 mg PO BID PRN #56 tab MDD 10/13/21 10/13/21 2 tabs lidocaine 5 % topical patch 1 patch TOPICAL Q24H #4 ea 10/19/21 (Lidoderm) Previous Rx's Medication Instructions Recorded acetaminophen 500 mg tablet 1,000 mg PO Q8H PRN #90 tab 05/18/19 metoprolol tartrate 50 mg tablet 25 mg PO BID #90 tab 10/24/20 albuterol sulfate 90 mcg/actuation 2 inh INHALATION Q6H PRN #1 ea 06/03/21 breath activated powder inhaler (ProAir RespiClick) allopurinol 100 mg tablet 100 mg PO DAILY #90 tab 06/03/21 finasteride 5 mg tablet (Proscar) 5 mg PO QAM #90 tab 07/01/21 warfarin 2.5 mg tablet 2.5 mg PO DIRECTED #180 tab 07/15/21 azelastine 137 mcg (0.1 %) nasal 1 spray INTRANASAL BID #30 ml 08/14/21 spray aerosol gabapentin 300 mg capsule 300 mg PO TID #90 tab-cap 08/14/21 losartan 100 mg tablet 100 mg PO DAILY #90 tab 08/14/21 triamcinolone acetonide 55 mcg 2 spray INTRANASAL DAILY #16.9 ml 08/29/21 nasal spray aerosol (Nasacort) amlodipine 5 mg tablet 5 mg PO DAILY #90 tab 10/13/21 methocarbamol 500 mg tablet 500 mg PO TID PRN #30 tab 10/13/21 tramadol 50 mg tablet 25 - 50 mg PO BID PRN #56 tab MDD 10/13/21 2 tabs lidocaine 5 % topical patch 1 patch TOPICAL Q24H #4 ea 10/19/21 (Lidoderm) Allergies Allergy/AdvReac Type Severity Reaction Status Date / Time tamsulosin HCl [From Flomax] AdvReac Unknown dizzy Verified 10/19/21 01:23 General Stated Complaint: Nk/Back Pain ARIK: 4 Review of Systems All systems reviewed & are unremarkable except as noted in HPI and below PFSH All Active Problems Sacroiliac joint pain (Acute) Back pain (Acute) Chronic pain syndrome (Chronic) 09/2021-drug contract at [facility], tramadol-for low back pain Low back pain (Acute) Foot pain, left (Acute) Lumbosacral radiculitis (Acute) Gout (Chronic) 2020- 1st MP joint, uric acid. 7.5 Elevated PSA (Acute) followed by Urology Prostatitis (Acute) Leukocytosis (Acute) chronic. 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 neg mpi 02/08 Atrial fibrillation (Chronic) remote hx, on warfarin BPH associated with nocturia (Chronic 03/13/16) Essential hypertension (Chronic 09/04/13) Hyperlipidemia (Chronic 10/18/12) Internal hemorrhoids without complication (Chronic) Tubular adenoma of colon (Chronic 03/06/14) Vertigo (Chronic 10/01/15) requires occasional [place] History of intravascular stent placement (Acute) History of amputation (Acute) finger B12 deficiency (Acute) Medical History Afib Arcus senilis BPH (benign prostatic hyperplasia) Carpal tunnel syndrome of right wrist Chronically dry eyes Coronary artery disease with angina pectoris Stent placement 2000 Elevated PSA 2007, since normalized Hematuria Hemorrhoids Left knee DJD Myositis Neutrophilic leukocytosis Osteoarthritis of left shoulder Peripheral neuropathy Sacroiliac joint dysfunction of both sides Sexual dysfunction Spinal Stenosis of Lumbar Region Tremor of both hands Trochanteric bursitis of right hip (08/12/15) Injected: 08/14/2019 Varicose veins of lower extremity With Edema Surgical History Amputation right index finger Colonoscopy - MAC 2004; NEG 2009; TUBULAR ADENOMA Replacement of total knee joint (04/28/17) LEFT DR. ENGLISH Stent placement (~2000) Social History Smoking/Tobacco Use Status: Former Tobacco Use Smoking risk assessment performed?: Yes Alcohol Intake: current Alcohol Intake frequency: holidays/special occasions only Drug use: Never Substance use type: does not use Household members: spouse Housing: house Number of Children: 3 current occupation: retired Current gender identity: male What is your relationship status?: Panel score (0-1 are the most socially isolated patients): 1 What type of physical activity do you participate in: none Do you feel safe at home: Yes Do you feel safe in your relationship?: Yes Exam Narrative Exam Narrative: 1.Const: Well-nourished, Well-developed, appearing stated age 2.Eyes: PERRL, no conjunctival injection, and symmetrical lids. 3.ENT: Atraumatic external nose and ears. Moist MM. Neck: Symmetric, trachea midline, No thyromegaly. 4.CVS: +S1/S2, No murmurs or gallops. Peripheral pulses 2+ and equal in all extremities. Brisk capillary refill in all extremities. 5.RESP: Unlabored respiratory effort. Clear to auscultation bilaterally. No wheezes rales or rhonchi 6.GI: Soft, Nontender/Nondistended, No hepatosplenomegaly. No guarding or rebound. 7.MSK: Normocephalic/Atraumatic, Extremities w/o deformity or ttp No cyanosis or clubbing, Normal movement of all extremities. 5 out of 5 strength bilaterally for the lower extremities however the left lower extremity appears a little bit more stiff in comparison to the right. Good dorsiflexion of the great toe. No midline tenderness for the cervical thoracic or lumbar or sacral spine. Patient does have mild left paraspinal tenderness at the L5/L6 region, and over the left SI joint. Patient demonstrates good sensation throughout the lower extremities, no saddle anesthesia. Patient demonstrates good rectal tone, good perirectal sensation. 8.Skin: Warm, Dry. No rashes or lesions. 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 Sensation grossly intact, no focal neurologic deficits. 10.Psych: (AAO) x3. Appropriate mood and affect Course Vital Signs Vital signs: Vital Signs Temperature 37.1 C 10/19/21 01:03 Pulse 82 10/19/21 01:03 Respiratory Rate 18 10/19/21 01:03 Blood Pressure 153/90 H 10/19/21 01:03 Pulse Oximetry 96 10/19/21 01:03 Temperature 37.1 C 10/19/21 01:03 Temperature Source Skin 10/19/21 01:03 Pulse 82 10/19/21 01:03 Respiratory Rate 18 10/19/21 01:03 Respiratory Effort 10/19/21 01:21 Blood Pressure 153/90 H 10/19/21 01:03 Blood Pressure Position Sitting 10/19/21 01:03 Pulse Oximetry 96 10/19/21 01:03 Oxygen Delivery Method Room Air 10/19/21 01:03 Oxygen Flow Rate 0 10/19/21 01:03 Pain Level 8 10/19/21 01:03
[2021-10-19] MEDS: Lidocaine 5% Patch 1 PATCH TP (01:36)
[2021-10-19] MEDS: Cyclobenzaprine 10 MG TAB PO (01:36)
[2021-10-19] MEDS: methylPREDNISolone SUCC 125 MG VIAL IVP (01:36)
== END 2021-10-19 01:50 | disposition home or self-care (01) ==
PROVIDERS: Emergency Provider Student in an Organized Health Care Education/Training Program; PCP Family Medicine
DX: M53.3 Sacrococcygeal disorders, not elsewhere classified (principal); M54.50 Low back pain, unspecified; G89.29 Other chronic pain; R20.2 Paresthesia of skin
CPT/HCPCS: 96374; 99284; 99283; J2930

== ENCOUNTER → 2021-10-24 00:52 | Outpatient (CLI) | payer MEDICARE, SELFPAY ==
--- NOTE | 2021-10-24 07:00 | DI.RAD_ITS ---
Exam(s) XR HIP PELVIS ADULT BL EXAM: XR HIP PELVIS ADULT BL CLINICAL HISTORY: flare, bilateral hip and low back-buttock pain,? ACUTE PROCESS,M25.559. TECHNIQUE: 2D digital imaging was performed. Three views. COMPARISON: CR RT HIP COMPLETE AP PELVIS from 05/19/2016 FINDINGS: There is moderate to severe narrowing of the right hip joint space and prominent periarticular spurri ng. No femoral head flattening. There is moderate narrowing of the left hip joint space and periart icular spurring greatest superiorly. Enthesophytes seen at the iliac wings and greater trochanters. There are degenerative changes at the inferior SI joints as well as lower lumbar spine. Vascular ca lcifications are present. IMPRESSION: Moderate to severe degenerative changes of both hips, right greater than left. DATA REPOSITORY: RADIATION DOSE DELIVERED:
== END ==
PROVIDERS: PCP Family Medicine; Visit Provider Family Medicine
DX: M25.551 Pain in right hip (principal); M25.552 Pain in left hip; M54.59 Other low back pain; M16.0 Bilateral primary osteoarthritis of hip
CPT/HCPCS: 73521

== ENCOUNTER 2021-10-29 01:43 | Outpatient (CLI) | payer MEDICARE, SELFPAY | END 2021-10-29 01:44 | disposition home or self-care (01) | LOC: LBO 01:43 | PROVIDERS: PCP Family Medicine; Visit Provider Nurse Practitioner Gerontology | DX: R97.20 Elevated prostate specific antigen [PSA] (principal); Z12.5 Encounter for screening for malignant neoplasm of prostate | CPT/HCPCS: 36415; 84153 ==

== ENCOUNTER → 2021-10-30 02:59 | Outpatient (CLI) | payer MEDICARE, SELFPAY ==
--- NOTE | 2021-10-30 14:50 | DI.RAD_ITS ---
Exam(s) RF JOINT INJECTION FLUORO GUID EXAM: RF JOINT INJECTION FLUORO GUID CLINICAL HISTORY: RIGHT HIP INJ UNDER FLUORO, RT HIP PAIN, M25.551 TECHNIQUE: 2D and realtime digital imaging was performed. COMPARISON: No exams were available for comparison FINDINGS: Fluoroscopy was utilized by Dr. Fitzgerald during right hip injection. Hard copy shows intra-articular injection of the right hip. IMPRESSION: RADIATION DOSE DELIVERED: kendell Mabry= 0.75 mGy Total DLP
--- NOTE | 2021-10-30 14:59 | W.PROCNOTE ---
Procedure Note Date of procedure: 10/30/21 Procedure: Bilateral Hip Injection with Fluoroscopic Guidance Surgeon/Proceduralist/Physician: Aneesh Fitzgerald Procedure Diagnosis: Bilateral Hip Osteoarthritis Procedure Indications: Julio Cesar has had persistent pain of the BILATERAL hip and groin. Noninvasive measures have been tried. To serve as both diagnostic and therapeutic, an injection under fluoroscopy was recommended. I had discussed the risks of the procedure and the patient elected to proceed. Procedure Description: Julio Cesar was greeted in the flouroscopy room. The consent was reviewed with the patient and signed. The patient was then placed in the supine position on the fluoroscopy table. The RIGHT hip was then prepped with Chloraprep. The anterolateral injection starting point was identiifed by bony landmarks and fluoroscopy. The skin and soft tissue in the tract of the injection was anesthetized with 1% Lidocaine. A spinal needle was then inserted deep into the hip joint at the level of the lateral femoral neck under fluoroscopic guidance. A small amount of Omnipaque solution was injected to confirm intraarticular placement. Once confirmed, the hip was injected with 5cc of 0.5% Bupivicaine and 80mg of Depo-Medrol. A bandaid was placed on the injection site. The LEFT hip was then prepped with Chloraprep. The anterolateral injection starting point was identiifed by bony landmarks and fluoroscopy. The skin and soft tissue in the tract of the injection was anesthetized with 1% Lidocaine. A spinal needle was then inserted deep into the hip joint at the level of the lateral femoral neck under fluoroscopic guidance. A small amount of Omnipaque solution was injected to confirm intraarticular placement. Once confirmed, the hip was injected with 5cc of 0.5% Bupivicaine and 80mg of Depo-Medrol. A bandaid was placed on the injection site. The patient tolerated the procedure well. He had improvement with his ability to get on and off the talble as well as up and down from the chair. However, he still had some central low back pain, although better than before.
--- NOTE | 2021-10-30 15:00 | DI.RAD_ITS ---
Exam(s) RF JOINT INJECTION FLUORO GUID EXAM: RF JOINT INJECTION FLUORO GUID CLINICAL HISTORY: L HIP INJ UNDER FLUORO, LT HIP PAIN, M25.552 TECHNIQUE: 2D and realtime digital imaging was performed. COMPARISON: No exams were available for comparison FINDINGS: Fluoroscopy is utilized by Dr. Fitzgerald during left hip injection. Hard copy shows intra-articular l eft hip injection. IMPRESSION: RADIATION DOSE DELIVERED: kendell Mabry=0.75 mGy Total DLP
[2021-10-30] MEDS: Bupivacaine 0.5% Pres-Free 30 ML VIAL 10 ML IJ (15:03)
[2021-10-30] MEDS: Omnipaque 300 MG/ML 10 ML BTL 2 ML IJ (15:04)
[2021-10-30] MEDS: methylPREDNISolone ACETATE 80 MG/ML VIAL IM ×2 (15:05)
== END ==
PROVIDERS: PCP Family Medicine; Visit Provider Student in an Organized Health Care Education/Training Program
DX: M16.11 Unilateral primary osteoarthritis, right hip; M16.12 Unilateral primary osteoarthritis, left hip
CPT/HCPCS: 20610; 77002; J1040

== ENCOUNTER → 2021-11-06 10:23 | Outpatient (BNVA) | payer MEDICARE, SELFPAY | PROVIDERS: PCP Family Medicine; Referring Provider Emergency Medicine; Visit Provider Nurse Practitioner Gerontology | DX: N40.1 Benign prostatic hyperplasia with lower urinary tract symptoms (principal); R35.0 Frequency of micturition; R97.20 Elevated prostate specific antigen [PSA] | CPT/HCPCS: 51798; 81003; 99215 ==

== ENCOUNTER 2021-11-07 01:32 | Outpatient (CLI) | payer MEDICARE, SELFPAY ==
[2021-11-07 12:45] LABS: INR 2.5 (0.9-1.1)
== END 2021-11-07 01:33 | disposition home or self-care (01) ==
LOC: LOS 01:32
PROVIDERS: PCP Family Medicine; Visit Provider Family Medicine
DX: I48.91 Unspecified atrial fibrillation (principal); Z79.01 Long term (current) use of anticoagulants
CPT/HCPCS: 36415; 85610

== ENCOUNTER → 2021-11-11 18:41 | Outpatient (CLI) | payer MEDICARE, SELFPAY ==
--- NOTE | 2021-11-11 14:43 | DI.RAD_ITS ---
Exam(s) XR FOOT RT COMPLETE EXAM: XR FOOT RT COMPLETE CLINICAL HISTORY: pain arthritis at 1st mp joint, no trauma - M79.673. TECHNIQUE: 2D digital imaging was performed. COMPARISON: No exams were available for comparison FINDINGS: 3 views There is no evidence of fracture or diastasis of the [place] joint. Moderate degenerative changes a re noted in the great toe metatarsophalangeal joint, particularly in the lateral aspect of this joint where there are eccentric osteophytes. There is a healed transverse fracture just proximal to the n bal of the 5th metatarsal. Calcification in the plantar fascia is noted as is a large inferior calca marty spur. IMPRESSION: Prominent calcification in the plantar fascia. Large inferior calcaneal spur. Other findings as above. DATA REPOSITORY: RADIATION DOSE DELIVERED:
== END ==
PROVIDERS: PCP Family Medicine; Visit Provider Family Medicine
DX: M79.671 Pain in right foot (principal); M25.571 Pain in right ankle and joints of right foot; M77.31 Calcaneal spur, right foot; M72.2 Plantar fascial fibromatosis
CPT/HCPCS: 73630

== ENCOUNTER → 2021-12-05 00:43 | Outpatient (CLI) | payer MEDICARE, SELFPAY ==
--- NOTE | 2021-12-05 07:00 | DI.US_ITS ---
Exam(s) US PROSTATE BIOPSY EXAM: elevated PSA doubled in 1 yr,r97.20 COMPARISON: No exams were available for comparison TECHNIQUE: Ultrasound performed using standard protocol. FINDINGS: Sonography was provided for Dr. Kraus during the performance of a ultrasound-guided transrectal pros irene biopsy. Please refer to the procedure report for complete details. DATA REPOSITORY:
--- NOTE | 2021-12-05 11:15 | PROST_PTH ---
PATIENT: Julio Cesar Rangel LOC: [facility] U#:[id number] AGE/SX: 85/M ROOM: RE12/05/[address]: Rubi Esparza DNP : 1940 BED: DIS: SPEC #: [id number] RECD: 12/05/21 12:42 STATUS: DAVIDE [facility]OKES #: [id number] AMARIS: 12/05/21 11:[address]: Rubi Esparza DEPT: Surgical Specimen RECD BY: Carmen Aj ENTERED: 12/05/21 12:44 SP TYPE: PROST OTHR DR: Carlos Wray MD Tissues: 1 - PROSTATE NEEDLE BIOPSY 2 - PROSTATE NEEDLE BIOPSY 3 - PROSTATE NEEDLE BIOPSY 4 - PROSTATE NEEDLE BIOPSY 5 - PROSTATE NEEDLE BIOPSY 6 - PROSTATE NEEDLE BIOPSY 7 - PROSTATE NEEDLE BIOPSY 8 - PROSTATE NEEDLE BIOPSY 9 - PROSTATE NEEDLE BIOPSY 10 - PROSTATE NEEDLE BIOPSY 11 - PROSTATE NEEDLE BIOPSY 12 - PROSTATE NEEDLE BIOPSY Procedures: GROSS AND MICRO LEVEL 4 Comments: [id number]
--- NOTE | 2021-12-05 11:48 | W.PM.OP ---
Date of service: 12/05/21 Time of Service: 11:54 Operative Note Operative Note DATE OF PROCEDURE: 12/05/21 PRE-OP DIAGNOSIS: Elevated PSA POST-OP DIAGNOSIS: same PROCEDURE: Transrectal ultra sound guided biopsy of the prostate SURGEON: Jean Paul Kraus ANESTHESIA TYPE: Local By Surgeon Refer to Anesthesia Record ESTIMATED BLOOD LOSS: 5 PATHOLOGY: other (Laterally directed biopsies of the prostate (12)) COMPLICATIONS: None Patient was transported to: no change Patient's condition: stable Implants: none Indications: This is an 81-year-old gentleman who is chronically on finasteride. His PSA has been elevated and is currently 9 ng/mL. After correcting for the effects finasteride has on PSA, his PSA is 18 ng/mL. He has no abnormalities on digital rectal exam. He presents for prostate biopsy Findings: Prostate volume 27 cc Procedure Description: The patient was given a preprocedural mechanical and antibiotic prep. He was brought to the radiology suite on 03/07/2022. He was placed in the left lateral position. Transrectal imaging of the prostate was performed using a variable megahertz transducer. The prostatic volume was calculated at 27 cc. The prostate was imaged in transverse and longitudinal planes. The transition zone was somewhat enlarged with multiple calcifications present. The peripheral zone showed a small hypoechoic area toward the left apex. A periprostatic nerve block was performed with 1% lidocaine without epinephrine. A total of 12 laterally directed biopsies were taken and sent to pathology for permanent section the biopsy taken and labeled left apex medial included the hypoechoic area. The patient tolerated the procedure well with no complications.
== END ==
PROVIDERS: PCP Family Medicine; Visit Provider Nurse Practitioner Gerontology
DX: R97.20 Elevated prostate specific antigen [PSA] (principal); C61 Malignant neoplasm of prostate
CPT/HCPCS: 55700; 76942; 88305

== ENCOUNTER 2021-12-12 01:14 | Outpatient (CLI) | payer MEDICARE, SELFPAY ==
[2021-12-12 12:32] LABS: INR 1.5 (0.9-1.1); Prothrombin Time 14.9 sec (9.3-11.0)
== END 2021-12-12 01:15 | disposition home or self-care (01) ==
LOC: LOS 01:18
PROVIDERS: PCP Family Medicine; Visit Provider Family Medicine
DX: I48.91 Unspecified atrial fibrillation (principal); Z79.01 Long term (current) use of anticoagulants
CPT/HCPCS: 36415; 85610

== ENCOUNTER 2021-12-19 01:15 | Outpatient (CLI) | payer MEDICARE, SELFPAY ==
[2021-12-19 12:56] LABS: INR 2.3 (0.9-1.1); Prothrombin Time 22.1 sec (9.3-11.0)
== END 2021-12-19 01:16 | disposition home or self-care (01) ==
LOC: LOS 01:15
PROVIDERS: PCP Family Medicine; Visit Provider Emergency Medicine
DX: I48.91 Unspecified atrial fibrillation (principal); Z79.01 Long term (current) use of anticoagulants
CPT/HCPCS: 36415; 99213; 85610

== ENCOUNTER 2021-12-26 14:40 | Outpatient (CLI) | payer MEDICARE, SELFPAY ==
[2021-12-26 12:38] LABS: INR 2.8 (0.9-1.1); Prothrombin Time 26.3 sec (9.3-11.0)
== END 2021-12-26 14:41 | disposition home or self-care (01) ==
LOC: LOS 14:44
PROVIDERS: PCP Family Medicine; Visit Provider Family Medicine
DX: I48.91 Unspecified atrial fibrillation (principal); Z79.01 Long term (current) use of anticoagulants
CPT/HCPCS: 36415; 85610

== ENCOUNTER 2022-01-20 10:26 | Outpatient (CLI) | payer MEDICARE, SELFPAY ==
--- NOTE | 2022-01-20 10:15 | RT.EKG_ITS ---
APPROVED REPORT Exam: Resting ECG Reason for Exam: Pre - Op Patient Location: O HR:78 bpm ECG Measurements Heart Rate 78 AXIS OK [id number] P [id number] QRSd 144 QRS 69 QT 407 T 7 QTc 466 Conclusion Atrial fibrillation...V-rate 65- 89, irreg A-activity Right bundle branch block...QRSd>120, terminal axis(90,270)
== END 2022-01-20 10:27 | disposition home or self-care (01) ==
LOC: DI.CM 10:27
PROVIDERS: PCP Family Medicine; Visit Provider Family Medicine
DX: Z01.818 Encounter for other preprocedural examination (principal); R94.31 Abnormal electrocardiogram [ECG] [EKG]; I45.19 Other right bundle-branch block; I48.91 Unspecified atrial fibrillation
CPT/HCPCS: 93010

== ENCOUNTER 2022-02-02 09:34 | Outpatient (CLI) | payer MEDICARE, SELFPAY ==
--- NOTE | 2022-02-02 08:45 | DI.RAD_ITS ---
Exam(s) XR PELVIS AP EXAM: XR PELVIS AP CLINICAL HISTORY: pre op BILAT SARA. TECHNIQUE: 2D digital imaging was performed. COMPARISON: CR XR HIP PELVIS ADULT BL from 10/24/2021 FINDINGS: Two views: No evidence of hip fractures. Again noted is severe narrowing of the right hip joint space as well a s femoral head osteophytes. More moderate degenerative narrowing of the left hip joint space noted. Bone density is normal. No osseous. IMPRESSION: Severe degenerative changes right hip. Moderate degenerative changes left hip. DATA REPOSITORY: RADIATION DOSE DELIVERED:
== END 2022-02-02 09:35 | disposition home or self-care (01) ==
LOC: DIORS 09:35
PROVIDERS: PCP Family Medicine; Referring Provider Family Medicine; Visit Provider Physician Assistant
DX: Z01.818 Encounter for other preprocedural examination; M16.11 Unilateral primary osteoarthritis, right hip; M16.12 Unilateral primary osteoarthritis, left hip
CPT/HCPCS: 72170

== ENCOUNTER 2022-02-09 02:28 | Outpatient (CLI) | payer MEDICARE, SELFPAY ==
[2022-02-09 12:15] LABS: Source Nasal/Nares
[2022-02-09 18:52] LABS: COVID-19 PCR Negative (Negative)
== END 2022-02-09 02:29 | disposition home or self-care (01) ==
LOC: LBO 02:29
PROVIDERS: PCP Family Medicine; Visit Provider Student in an Organized Health Care Education/Training Program
DX: Z20.822 Contact with and (suspected) exposure to COVID-19 (principal); Z01.818 Encounter for other preprocedural examination
CPT/HCPCS: 36415; 80048; 85027; 86850; 86900; 86901; 87635; 85610

== ENCOUNTER 2022-02-09 02:40 | Outpatient (CLI) | payer MEDICARE, SELFPAY ==
[2022-02-09 10:50] LABS: HGB 14.8 g/dL (13.5-17.5); MCHC 32.9 % (32.0-36.0); MCV 88 fL (80-95); MPV 9.9 fL (8.0-11.0); Platelet Count 335 10^3/uL (130-400); RDW 13.2 % (11.8-14.1); WBC 10.14 10^3/uL (4.4-10.8)
[2022-02-09 11:01] LABS: INR 1.2 (0.9-1.1); Prothrombin Time 11.7 sec (9.3-11.0)
[2022-02-09 11:36] LABS: Anion Gap 7.3 mmol/L (3-11); BUN 15 mg/dL (7-18); CO2 29.7 mmol/L (21.0-32.0); Calcium 9.3 mg/dL (8.5-10.1); Chloride 102 mmol/L (98-107); Glucose 102 mg/dL (74-106); Potassium 3.9 mmol/L (3.5-5.1); Sodium 139 mmol/L (136-145)
== END 2022-02-09 02:41 | disposition home or self-care (01) ==
PROVIDERS: Student in an Organized Health Care Education/Training Program; PCP Family Medicine; Visit Provider Emergency Medicine
DX: M25.551 Pain in right hip (principal); M25.552 Pain in left hip; M16.0 Bilateral primary osteoarthritis of hip; I48.91 Unspecified atrial fibrillation; Z01.818 Encounter for other preprocedural examination; Z01.812 Encounter for preprocedural laboratory examination
CPT/HCPCS: 36415; 80048; 85027; 86850; 86900; 86901; 85610

== ENCOUNTER 2022-02-10 06:29 | Observation (INO) | payer MEDICARE, SELFPAY ==
[2022-02-10] VITALS (14 sets, daily range): BP systolic 71–131; BP diastolic 31–88; PULSE 59–74; RESP 12–18; TEMP 35–36.7; O2SAT 93–97; BMI 35.6
--- NOTE | 2022-02-10 06:41 | W.PM.DS.N ---
Date of service: 02/12/22 Time of Service: 12:35 DS: Diagnosis Discharge Diagnosis (1) Bilateral primary osteoarthritis of hip: Status: Acute Discharge Plan Disposition Patient Disposition: HOME Condition: Stable Discharge Details Reason For Visit: Bilateral SARA's Admit Date/Time: 02/10/22 06:29 Admit Provider: Aneesh Fitzgerald Attending Provider: Aneesh Fitzgerald Primary Care Provider: Carlos Wray Hospital Course Hospital Course: Patient was admitted to the medical/surgical floor following the procedure. The surgery was tolerated well without any notable medical, surgical, or anesthetic complications. Julio Cesar did have some mild hypotension which responded well to fluids. Mobilization began postoperatively. He was voiding spontaneously. Vitals were stable. Physical therapy worked with the patient and was cleared for discharge home. No acute medical issues. Pain was controlled on oral regimen. Home Meds and New Rx's Prescriptions: New celecoxib [Celebrex] 200 mg capsule 200 mg PO BID Qty: 60 0RF pantoprazole [Protonix] 40 mg tablet,delayed release (DR/EC) 40 mg PO DAILY Qty: 30 0RF acetaminophen 500 mg capsule 1,000 mg PO Q8H PRN PRNQty: 90 0RF tramadol 50 mg tablet 50 mg PO Q6H PRNQty: 14 0RF oxycodone 5 mg tablet 5 mg PO Q4H Qty: 18 0RF Continued ProAir RespiClick 90 mcg/actuation aerosol powdr breath activated 2 inh inhalation Q6H PRN (Reason: shortness of breath or wheezing) Qty: 1 2RF allopurinol 100 mg tablet 100 mg PO DAILY Qty: 90 3RF triamcinolone acetonide [Nasacort] 55 mcg aerosol,spray 2 spray intranasal DAILY Qty: 16.9 2RF Rx Instructions: administer into each nostril amlodipine 5 mg tablet 5 mg PO DAILY Qty: 90 3RF gabapentin 300 mg capsule 300 mg PO HS Qty: 1 0RF Label Comments: pt. reports taking 2 pills gabapentin 300 mg capsule 300 mg PO DAILY losartan 100 mg tablet 100 mg PO DAILY Qty: 90 3RF azelastine 137 mcg (0.1 %) aerosol,spray 1 spray intranasal BID Qty: 30 2RF Rx Instructions: administer into each nostril metoprolol tartrate 50 mg tablet 25 mg PO BID Qty: 90 3RF finasteride [Proscar] 5 mg tablet 5 mg PO QAM Qty: 90 3RF warfarin 2.5 mg tablet 2.5 mg PO DIRECTED Qty: 180 4RF Protocol: Dose Management Condition: Wednesday Dose/Route: 5 mg Instruction: 2 x 2.5 mg tablets Condition: Wednesday Dose/Route: 5 mg Instruction: 2 x 2.5 mg tablets Condition: Wednesday Dose/Route: 2.5 mg Instruction: 1 x 2.5 mg tablet Condition: Wednesday Dose/Route: 5 mg Instruction: 2 x 2.5 mg tablets Condition: Dose/Route: 2.5 mg Instruction: 1 x 2.5 mg tablet Condition: Wednesday Dose/Route: 5 mg Instruction: 2 x 2.5 mg tablets Condition: Wednesday Dose/Route: 2.5 mg Instruction: 1 x 2.5 mg tablet Protocol Text: Adjustment Start Date: Wednesday12/26/21 INR Value: 2.8 INR Date: 12/26/21 Recheck Date: 01/25/22 methocarbamol 500 mg tablet 500 mg PO TID PRN (Reason: muscle spasm) Qty: 30 1RF lidocaine [Lidoderm] 1 PATCH patch 1 patch Topical Q24H Qty: 4 0RF Discontinued tramadol 50 mg tablet 25 - 50 mg PO BID MDD 2 tabs PRN (Reason: pain) Qty: 56 2RF Label Comments: pt. reports taking 1/2 pill Discharge Instructions Additional Instructions: Total Hip Discharge Instructions Activity: The most important activity is to walk. You should try to take short walks a few times a day. You have no restrictions on movement or positioning, but do not try to force what you do. You will find some stiffness and weakness with hip flexion (lifting your knee). Do not try to strengthen this too early, continue to practice walking and stairs and this will come. - Outpatient physical therapy can be helpful to help return you to a normal gait and improve your flexibility and strength. This can start around 2 weeks. For some patients, it?s not necessary. Usually this is determined at the time of discharge or at the first post-operative visit. - You should wear the DIANNA hose on both legs for 2 weeks. Dressing: Keep the surgical dressing in place for at least one week. After the first week it may be removed and replace with light gauze and tape or nothing. It may get wet after 3 days but avoid soaking the dressing. If it gets wet, just lightly pat dry. It is important to always keep some gauze between skin folds, especially when you are sitting. Spend some time with the wound exposed when you are lying flat as the incision does wrinkle onto itself. Medications: - You should take Tylenol and an anti-inflammatory Celebrex as your primary pain control medications. If the Celebrex is too expensive or not covered, please call the office for another alternative (Advil/Ibuprofen or Naproxen/Aleve). - You have been prescribed a stronger pain medication Oxycodone for breakthrough pain, take as needed as prescribed. - You have also been prescribed a stomach acid reduction agent Pantoprozole to help reduce stomach acid and reflux. - You will be taking your previously prescribed blood thinner, Warfarin, for DVT prevention unless instructed otherwise. - If you have constipation you should take Colace or Miralax (both [id number]). It takes most people 3-4 days to have a bowel movement. Follow-up: 2 weeks If you have any acute concerns or questions, please do not hesitate to contact the office at [phone]. You may contact Dr. Fitzgerald with any questions after hours through the hospital at [phone] or on his cell phone at [phone]. Referrals: Aneesh Fitzgerald MD [ [facility] STAFF PHYSICIAN] - Activity:: Activity as Tolerated Equipment/Supplies:: Walker Diet:: As Tolerated Discharge Orders Discharge Orders: Discharge Order (Routine); Ordered 02/12/22 Ordered By: Aneesh Fitzgerald DS: Summary Time Spent with Patient providing and/or coordinating discharge services: Less than 30 minutes Status at Discharge Functional status at discharge: uses cane/walker Overall status at discharge: patient is progressing back to baseline Mental Status: mental status grossly normal Speech and Movement: speech and movement normal Mood: congruent mood Affect: normal affect Exam Psych Mental Status: mental status grossly normal Speech and Movement: speech and movement normal Mood: congruent mood Affect: normal affect DS: Data Vitals/I&O Vitals and I&O: Intake & Output 02/09/22 02/09/22 02/10/22 11:59 23:59 11:59 Weight 251 lb 15.99 oz PFSH All Active Problems Anticoagulated on warfarin (Chronic) A-fib; INR goal 2-3 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 neg mpi 02/08 Atrial fibrillation (Chronic) remote hx, on warfarin BPH associated with nocturia (Chronic 03/13/16) Essential hypertension (Chronic 09/04/13) Hyperlipidemia (Chronic 10/18/12) Internal hemorrhoids without complication (Chronic) Tubular adenoma of colon (Chronic 03/06/14) Vertigo (Chronic 10/01/15) requires occasional [place] History of intravascular stent placement (Acute) History of amputation (Acute) finger B12 deficiency (Acute) Leukocytosis (Acute) chronic. Heme consult [facility] [place] 07/15, normal wbc-03/2021 Prostatitis (Acute) Elevated PSA (Acute) followed by Urology Gout (Chronic) 2020- 1st MP joint, uric acid. 7.5 Lumbosacral radiculitis (Acute) Foot pain, left (Acute) Low back pain (Acute) Chronic pain syndrome (Chronic) 09/2021-drug contract at [facility], tramadol-for low back pain Prostate cancer (Chronic) Bilateral primary osteoarthritis of hip (Acute) Medical History Afib Arcus senilis BPH (benign prostatic hyperplasia) Carpal tunnel syndrome of right wrist Chronically dry eyes Coronary artery disease with angina pectoris Stent placement 2000 Elevated PSA 2007, since normalized Hematuria Hemorrhoids Left knee DJD Myositis Neutrophilic leukocytosis Osteoarthritis of left shoulder Peripheral neuropathy Sacroiliac joint dysfunction of both sides Sexual dysfunction Spinal Stenosis of Lumbar Region Tremor of both hands pt. reports R hand Trochanteric bursitis of right hip (08/12/15) Injected: 08/14/2019 Varicose veins of lower extremity With Edema Surgical History Amputation right index finger Colonoscopy - MAC 2004; NEG 2009; TUBULAR ADENOMA Hx of removal of cyst pt. reports paralytic cyst at base of spine Replacement of total knee joint (04/28/17) LEFT DR. ENGLISH, pt. reports bilateral Stent placement (~2000) Cardiac stent placement-Per no residual issues. Last saw cards for EKD 01/20/22 Social History Smoking/Tobacco Use Status: Former Tobacco Use Quit Date: 06/28/01 Smoking risk assessment performed?: Yes Alcohol Intake: current Alcohol Intake frequency: holidays/special occasions only Drug use: Never Substance use type: does not use Details: pt. denies alcohol at all Household members: spouse Housing: house Number of Children: 3 current occupation: retired Current gender identity: male What is your relationship status?: Panel score (0-1 are the most socially isolated patients): 1 What type of physical activity do you participate in: none Do you feel safe at home: Yes Do you feel safe in your relationship?: Yes
--- NOTE | 2022-02-10 09:30 | DI.RAD_ITS ---
Exam(s) XR HIP RT IN OR EXAM: XR HIP RT IN OR CLINICAL HISTORY: OA RIGHT HIP. TECHNIQUE: 2D digital imaging was performed. COMPARISON: No exams were available for comparison FINDINGS: Intraoperative fluoroscopy was provided during hip arthroplasty. See procedure report for details. Cumulative dose= 6.08mGy IMPRESSION: DATA REPOSITORY: RADIATION DOSE DELIVERED:
--- NOTE | 2022-02-10 09:30 | DI.RAD_ITS ---
Exam(s) XR HIP LT IN OR EXAM: XR HIP LT IN OR CLINICAL HISTORY: OA LEFT HIP. TECHNIQUE: 2D digital imaging was performed. COMPARISON: CR XR PELVIS AP from 02/02/2022 XA XR HIP RT IN OR from 02/10/2022 FINDINGS: Intraoperative fluoroscopy was provided during left hip arthroplasty. See procedure report for details. Total fluoroscopy time 44 seconds. Cumulative dose =8.2mGY IMPRESSION: DATA REPOSITORY: RADIATION DOSE DELIVERED:
[2022-02-10] MEDS: Celecoxib 200 MG CAP 400 MG PO (09:37)
[2022-02-10] MEDS: Lactated Ringers 1,000 ML 80 ML IV ×2 (09:50→16:39)
[2022-02-10] MEDS: ceFAZolin 3,000 MG in Normal Saline 100 ML 200 MG IVPB (10:50)
--- NOTE | 2022-02-10 11:13 | ANES.PREOP_ITS ---
General Info Date of Service Date Performed: 02/10/22 Height: 5 ft 10 in Weight: 112.7 kg Body Mass Index (BMI): 35.6 Surgical Procedure: Operation Date: 02/10/22 12:15 Proposed Procedure Side Surgeon p Hip Total Hip Anterior Bilateral ACTIS Bilateral Aneesh Fitzgerald MD Meds Allergies and Home Medications Allergies Allergy/AdvReac Type Severity Reaction Status Date / Time tamsulosin HCl [From Flomax] AdvReac Unknown dizzy Verified 02/10/22 09:08 Home Medication Medication Instructions Recorded acetaminophen 500 mg tablet 1,000 mg PO Q8H PRN pain #90 tabs 05/18/19 metoprolol tartrate 50 mg tablet 25 mg PO BID #90 tabs 10/24/20 albuterol sulfate 90 mcg/actuation 2 inh inhalation Q6H PRN shortness 06/03/21 breath activated powder inhaler of breath or wheezing #1 ea (ProAir RespiClick) allopurinol 100 mg tablet 100 mg PO DAILY #90 tabs 06/03/21 finasteride 5 mg tablet (Proscar) 5 mg PO QAM #90 tabs 07/01/21 warfarin 2.5 mg tablet 2.5 mg PO DIRECTED #180 tabs 07/15/21 azelastine 137 mcg (0.1 %) nasal 1 spray intranasal BID #30 mL 08/14/21 spray aerosol losartan 100 mg tablet 100 mg PO DAILY #90 tabs 08/14/21 triamcinolone acetonide 55 mcg 2 spray intranasal DAILY #16.9 mL 08/29/21 nasal spray aerosol (Nasacort) amlodipine 5 mg tablet 5 mg PO DAILY #90 tabs 10/13/21 tramadol 50 mg tablet 25 - 50 mg PO BID PRN pain #56 tabs 10/13/21 lidocaine 5 % topical patch 1 patch topical Q24H #4 ea 10/19/21 (Lidoderm) methocarbamol 500 mg tablet 500 mg PO TID PRN muscle spasm #30 11/17/21 tabs gabapentin 300 mg capsule 300 mg PO HS #1 tab-cap 01/05/22 gabapentin 300 mg capsule 300 mg PO DAILY 02/02/22 acetaminophen 500 mg capsule 1,000 mg PO Q8H PRN PRN #90 caps 02/10/22 celecoxib 200 mg capsule (Celebrex) 200 mg PO BID #60 caps 02/10/22 gabapentin 300 mg capsule 300 mg PO QHS #14 caps 02/10/22 pantoprazole 40 mg tablet,delayed 40 mg PO DAILY #30 tabs 02/10/22 release (Protonix) tramadol 50 mg tablet 50 mg PO Q6H PRN #14 tabs 02/10/22 Current Visit Medications: Current Medications Generic Name Dose Route Start Last Admin Trade Name Freq PRN Reason Stop Dose Admin Acetaminophen 1,000 mg 02/10/22 06:00 Acetaminophen 500 Mg Tab PO 02/10/22 16:00 PREOP SRIRAM Acetaminophen 1,000 mg 02/10/22 14:00 Acetaminophen 500 Mg Tab PO TID SRIRAM Allopurinol 100 mg 02/11/22 08:30 Allopurinol 100 Mg Tab PO DAILY SRIRAM Amlodipine Besylate 5 mg 02/11/22 08:30 Amlodipine 5 Mg Tab PO DAILY SRIRAM Celecoxib 400 mg 02/10/22 06:00 02/10/22 09:37 Celecoxib 200 Mg Cap PO 02/10/22 16:00 400 mg PREOP SRIRAM Administration Celecoxib 200 mg 02/10/22 20:00 Celecoxib 200 Mg Cap PO BID SRIRAM Docusate Sodium 100 mg 02/10/22 06:36 Docusate Sodium 100 Mg Cap PO BID PRN PRN Constipation Finasteride 5 mg 02/11/22 08:30 Finasteride 5 Mg Tab PO QAM SRIRAM Gabapentin 300 mg 02/11/22 08:30 Gabapentin 300 Mg Cap PO QAM SRIRAM Gabapentin 600 mg 02/10/22 22:00 Gabapentin 300 Mg Cap PO HS SRIRAM Hydromorphone HCl 0.5 mg 02/10/22 06:36 Hydromorphone 2 Mg/Ml Vial IVP Q2H PRN PRN Tranexamic Acid 1,000 mg/ 60 mls @ 360 mls/hr 02/10/22 06:00 Sodium Chloride IV 02/10/22 16:00 PREOP SRIRAM Cefazolin Sodium 3,000 mg/ 100 mls @ 200 mls/hr 02/10/22 06:00 Sodium Chloride IVPB 02/10/22 18:00 PREOP SRIRAM Ringer's Solution 1,000 mls @ 80 mls/hr 02/10/22 06:00 02/10/22 09:50 IV 03/11/22 23:59 80 mls/hr INFUSION SRIRAM Administration Cefazolin Sodium/Dextrose 1 gm in 50 mls @ 100 mls/hr 02/10/22 18:00 Ancef Duplex IVPB 02/11/22 10:29 Q8H [facility] IV Miscellaneous Supplies 1 each 02/10/22 06:00 Iv Access IV 03/11/22 23:59 DIRECTED [facility] Methocarbamol 500 mg 02/11/22 06:32 Methocarbamol 500 Mg Tab PO TID PRN muscle spasm Metoprolol Tartrate 25 mg 02/11/22 08:30 Metoprolol 50 Mg Tab PO BID [facility] Non-Formulary Medication 2 inh 02/11/22 06:32 Albuterol Sulfate [Proair Respiclick] IH Q6H PRN shortness of breath or wheezing Non-Formulary Medication 1 spray 02/11/22 08:30 Azelastine SHADI BID [facility] Non-Formulary Medication 100 mg 02/11/22 08:30 Losartan PO DAILY [facility] Non-Formulary Medication 2 spray 02/11/22 08:30 Triamcinolone Acetonide [Nasacort] SHADI DAILY [facility] Ondansetron HCl 4 mg 02/10/22 06:31 Ondansetron 4 Mg/2 Ml Vial IVP Q6H PRN PRN Nausea Oxycodone HCl 5 mg 02/10/22 10:50 Oxycodone 5 Mg Tab PO Q4H PRN PRN Pantoprazole Sodium 40 mg 02/11/22 07:30 Pantoprazole 40 Mg Tabcr PO DAILY@0730 [facility] Sodium Chloride 0 ml 02/10/22 06:00 Normal Saline Flush 10 Ml Syr IV 03/11/22 23:59 PRN PRN Sodium Chloride 0 ml 02/10/22 06:00 Normal Saline 10 Ml Vial IJ 03/11/22 23:59 DIRECTED PRN Sterile Water 0 ml 02/10/22 06:00 Water,Injection,Sterile 10 Ml Vial IJ 03/11/22 23:59 DIRECTED PRN Warfarin Sodium 2.5 mg 02/11/22 07:00 Warfarin 2.5 Mg Tab PO DIRECTED [facility] PFSH Active Problems Active Problems: Problem Status Onset Code Anticoagulated on warfarin Z79.01 Atherosclerosis of [place] coronary artery with angina pectoris I25.119 Atrial fibrillation I48.91 BPH associated with nocturia 03/13/16 N40.1, R35.1 Essential hypertension 09/04/13 I10 Hyperlipidemia 04/23/13 E78.5 Internal hemorrhoids without complication K64.8 Tubular adenoma of colon 03/06/14 D12.6 Vertigo 10/01/15 R42 History of intravascular stent placement Z95.828 History of amputation Z89.9 B12 deficiency E53.8 Leukocytosis D72.829 Prostatitis N41.9 Elevated PSA R97.20 Gout M10.9 Lumbosacral radiculitis M54.17 Foot pain, left M79.672 Low back pain M54.50 Chronic pain syndrome G89.4 Prostate cancer C61 Bilateral primary osteoarthritis of hip M16.0 Medical History Medical History Afib Arcus senilis BPH (benign prostatic hyperplasia) Carpal tunnel syndrome of right wrist Chronically dry eyes Coronary artery disease with angina pectoris Stent placement 2000 Elevated PSA 2007, since normalized Hematuria Hemorrhoids Left knee DJD Myositis Neutrophilic leukocytosis Osteoarthritis of left shoulder Peripheral neuropathy Sacroiliac joint dysfunction of both sides Sexual dysfunction Spinal Stenosis of Lumbar Region Tremor of both hands pt. reports R hand Trochanteric bursitis of right hip (08/12/15) Injected: 08/14/2019 Varicose veins of lower extremity With Edema Surgical History Surgical History Amputation right index finger Colonoscopy - MAC 2004; NEG 2009; TUBULAR ADENOMA Hx of removal of cyst pt. reports paralytic cyst at base of spine Replacement of total knee joint (04/28/17) LEFT DR. ENGLISH, pt. reports bilateral Stent placement (~2000) Cardiac stent placement-Per no residual issues. Last saw cards for EKD 01/20/22 Tobacco Smoking/Tobacco Use Status: Former Tobacco Use Alcohol Alcohol Intake: current Alcohol intake frequency: holidays/special occasions only Substance Use Substance use: Never Substance use type: does not use Details: pt. denies alcohol at all Vital Signs and Lab Results Vital Signs Most Recent Vital Signs in EMR: Most Recent Vital Signs Temp Pulse Resp BP Pulse Ox 36.7 C 70 18 131/88 97 02/10/22 09:28 02/10/22 09:28 02/10/22 09:28 02/10/22 09:28 02/10/22 09:28 Lab Results Blood Type / Crossmatch: Patient ABO/Rh A Positive 02/09/22 Antibody Screen NEGATIVE 02/09/22 Complete Blood Count: White Blood Count 10.14 10^3/uL (4.4-10.8) 02/09/22 10:43 Red Blood Count 5.10 10^6/uL (4.36-5.78) 02/09/22 10:43 Hemoglobin 14.8 g/dL (13.5-17.5) 02/09/22 10:43 Hematocrit 45.0 % (40.0-50.0) 02/09/22 10:43 Platelet Count 335 10^3/uL (130-400) 02/09/22 10:43 Complete Metabolic Panel: Sodium Level 139 mmol/L (136-145) 02/09/22 10:43 Potassium Level 3.9 mmol/L (3.5-5.1) 02/09/22 10:43 Chloride Level 102 mmol/L (98-107) 02/09/22 10:43 Carbon Dioxide Level 29.7 mmol/L (21.0-32.0) 02/09/22 10:43 Blood Urea Nitrogen 15 mg/dL (7-18) 02/09/22 10:43 Creatinine 1.0 mg/dL (0.70-1.30) 02/09/22 10:43 Estimated GFR/1.73 m2 >= 60.00 (mL/min/1.73m2) 02/09/22 10:43 Calcium Level 9.3 mg/dL (8.5-10.1) 02/09/22 10:43 Glucose Level 102 mg/dL (74-106) 02/09/22 10:43 Liver Function Panel: No Data to Display Coagulation Panel: INR International Normalized Ratio 1.2 (0.9-1.1) H 02/09/22 10 :43 Prothrombin Time 11.7 sec (9.3-11.0) H 02/09/22 10:43 Cardiac Panel: No Data to Display Arterial Blood Gas: No Data to Display Venous Blood Gas: No Data to Display Pancreas Panel: No Data to Display Thyroid Panel: No Data to Display Infectious Disease: Coronavirus (COVID-19)(PCR) Negative (Negative) 02/09/22 10:56 Coronavirus 2019 Source Nasal/Nares 02/09/22 10:56 Blood Cultures: No Data to Display Toxicology Panel: No Data to Display Anesthesia Assessment and Plan Anesthesia History Personal History: No History of Anesthesia Complications Family History: No Family History of Anesthesia Complications Exercise Tolerance Exercise Tolerance: Metabolic Equivalents<4 Pertinent Negatives Pertinent Negatives: No Symptoms of GERD, No Major Cardiovascular Symptoms or Complaints, No Major Pulmonary Symptoms or Complaints and No History of CVA/TIA Cardiac & Pulmonary Exam Cardiac Exam: Normal S1/S2 Heart Sounds Pulmonary Exam: Clear Bilateral Breath Sounds Implantable Cardiac Device Does patient have a Pacemaker or an ICD?: No Airway Exam Known Difficult Airway: No Mallampati Class: 2 Mouth Opening: Normal (> 3cm) Thyromental Distance: Greater than 3 cm Neck Range of Motion: Full ROM Neck Circumference: Normal Teeth Condition: Generalized Poor Dentition, Removable Dentures/Plates Upper and Removable Dentures/Plates Lower ASA Classification ASA Score: ASA 3 Emergency Case?: No NPO Status NPO Status: NPO Clears >2 hours, Solids >8 hours Anesthesia Plan Resuscitation Status: Full Code Anesthesia Technique: Spinal Anesthesia (GA as backup plan) Airway Planned: Natural Airway Monitors Used: Standard Monitors
[2022-02-10] MEDS: ePHEDrine 25 MG/5 ML Syringe IVP ×3 (14:18→15:01)
[2022-02-10] MEDS: Ondansetron 4 MG/2 ML VIAL IVP (14:54)
--- NOTE | 2022-02-10 15:03 | ROE_ITS ---
Date of service: 02/10/22 Time of Service: 13:30 Operative Note Operative Note DATE OF PROCEDURE: 01/24/20 PRE-OP DIAGNOSIS: Bilateral Hip Osteoarthritis POST-OP DIAGNOSIS: same PROCEDURE: Bilateral Anterior Total Hip Arthroplasty with Intraoperative Navigation SURGEON: Aneesh Fitzgerald INTERNAL GRINDER: Shruthi Rodriguez ANESTHESIA TYPE: Spinal Refer to Anesthesia Record ESTIMATED BLOOD LOSS: 600 PATHOLOGY: none sent COMPLICATIONS: None Patient was transported to: PACU Patient's condition: stable Implants: RIGHT: 1. Depuy Silver Acetabular Component, 54mm 2. Depuy Acetabular Liner, [id number] 3. Depuy Actis STandard Femoral Stem, Size 9 4. Depuy Altrx Ceramic Femoral Head, Size 36+5mm LEFT: 1. Depuy Silver Acetabular Component, 54mm 2. Depuy Acetabular Liner, [id number] 3. Depuy Corail Actis Standard Femoral Stem, Size 9 4. Depuy Altrx Ceramic Femoral Head, Size 36+8.5mm Indications: I have seen Julio Cesar in clinic for symptoms of hip arthritis, confirmed with radiographic findings. He has exhausted nonoperative methods and was having significant limitations in daily function and desired better function and less pain. I discussed the technical details of a hip replacement. I explained the risks of the procedure to include, but not limited to, bleeding, infection, pain, stiffness, fracture, damage to nerves and vessels, damage to muscles and tendons, loosening, instability, leg length inequality, need for repeat pro cedure, blood clot and cardiopulmonary demise. Despite these risks, Julio Cesar elected to proceed. Findings: There was significant signs of arthritis throughout both hips. Procedure Description: Julio Cesar was greeted in the preoperative holding area where the correct side was identified and marked. The consent was reviewed with the patient and signed. The history and physical was updated. All questions were answered. He was taken back to the operating room. A spinal anesthestic was attempted but not successful so we proceeded with general anesthetic. The patient was placed into the supine position on the HANA table. Both feet were wrapped with Webrill cotton wrap along with Coban. RIGHT Side The feet were placed in specialized boots for the HANA table, well seated within the boot and secured. SCDs were applied. The patient was then slid down onto a peroneal post. A preoperative AP hip was obtained to serve as a reference for determining leg lengths. Prophylactic antibiotics in the form of Cefazolin were administered. 1g of Tranxemic Acid was given intravenously within 30 minutes of incision. The right leg was then prepped with Chloraprep and draped in a standard fashion. A second prep with Chloraprep was performed prior to placement of a shower-curtain type drape with Iodine impregnated skin protection. A timeout to confirm correct identity, side and site, procedure, allergies, anesthesia, and medical concerns was performed. An obliquely oriented incision was made starting lateral to the ASIS and running distal over the Tensor Fascia Jacque (TFL) muscle belly toward the fibular head, approximately 10cm. The skin and soft tissue was dissected sharply, through Dunia?s fascia, and to the fascia of the TFL. With the fascia and superior border of the IT band identified, the fascia was incised with a new knife just above any perforators from the IT band. The TFL muscle belly was bluntly dissected away from the fascia and moved laterally. The fat between TFL and rectus was identified to ensure the dissection was not within the TFL. Blunt dissection created space between abductors and the capsule and retractor was placed over the lateral femoral neck. The fibers of the rectus femoris tendon were identified and these were freed from the anterior capsule. A second cobra retractor was placed around the medial femoral neck. The TFL was further retracted laterally to show the deep fascia. Careful dissection through this l cecilia identified three main crossing vessels of the lateral femoral circumflex. These were cauterized in multiple locations and then cut without any noticeable bleeding. The TFL was further released bluntly from the deep fascia to expose anterior hip capsule and fat The Sudhir orthopaedic retractor was then placed beneath the TFL and against sartorius and medial soft tissues to protect and retract the soft tissues. A T-capsulotomy was then performed starting at the superior lateral acetabulum and moving distally to the intertrochanteric ridge. These capsular flaps were tagged with a No. 1 Ethibond and elevated from within. The capsular flaps were released to the shoulder of the lateral neck and to the lesser trochanter to give excellent visualization of the proximal femur. A neck osteotomy was performed using an oscillating saw based on preoperative templates. This cut started in the shoulder and of the lateral neck and exited medially. The saw was at all times directed medially to avoid injury to the greater trochanter. Gentle traction was applied to the leg and the osteotomy opened. The femoral head was removed with a corkscrew, making sure to protect the TFL on its exit. This was measured on the back table to determing the starting reamer size. Portions of the rectus obscuring visualization were minimally elevated off the superior acetabulum. An anterior retractor was placed over the anterior wall between capsule and labrum and attached to the Gripper retraction system. A posterior retractor was placed similarly. This provided excellent visualization. The contents of the cotyloid fossa were removed with electrocautery and the labrum was removed with a knife. Acetabular reaming began with a 50mm reamer. This first reaming was directed anterior to posterior and medial to get down to the true floor. This was inspected and reamed until the true floor was reached. The anterior retractor was then released and entry and exit was provided by traction on the capsular flaps. I then reamed sequentially up to a 54mm reamer where good fit was obtained. The larger reamers were oriented based on anatomical reference of the anterior and lateral lala to ensure proper abduction and anteversion. Positioning and size was confirmed with the fluoroscopy. A 54mm Depuy Silver acetabular component was selected. The acetabulum was reamed around the periphery with the selected acetabular size to prevent a rim fit. The deep tissues were irrigated. The acetabular component was then impacted in a position of about 40-45 degrees of abduction and 15-20 degrees of anteversion, using the patient?s anatomy as the ultimate landmark. Fluoroscopy was used to confirm this. There was excellent technical architect of the acetabular component and the inserting handle was removed. The acetabular liner, Depuy [id number] polyethylene liner, was inserted and lined up with the tines of the acetabular component. There was no soft tissue interposition. The liner was then impacted into position and confirmed to be well-seated. A portion of the abby-articular cocktail was then injected around the acetabulum into the capsule and periosteum. This cocktail consisted of 50cc of 0.25% Bupivicaine and 20cc of Exparel, expanded to a total of 120cc. Traction was released from the femur. The leg was rotated to 120 degrees. Any remaining medial capsule was released until the lesser trochanter was easily palpable. A Cole retractor was placed medially. The lateral capsule was further released into the shoulder to allow access to the greater trochanter. A Cole retractor was placed over the greater trochanter which allowed the trochanter to flip in front of the capsule for excellent exposure. The leg was brought down into maximal extension and 20 degrees of adduction while ensuring there was no impingement on the acetabulum. Any remnant capsule within the trochanter was released. Piriformis and obturator externis were identified and protected. There was excellent access to the proximal femur. The lateral neck remnant was removed with a rongeur. A blunt canal probe was used to identify the canal and trajectory for later broaching. A box osteotome initiated the broach course. A small curved rasp and a curved curette were used to work laterally. Broaching then began with a size 0 Actis broach. This was inserted manually around the trochanter and into the canal before mallet blows. The broach was seated to a few millimeters below the cut level based on the neck cut and the preoperative template. Sequential broaching was continued until a tight fit was obtained with good rotational control of the femur. A trial standard neck was inserted along with a +5 trial head. The leg was brought out of extension and adduction and then reduced with traction and internal rotation. The leg was stable anteriorly in a position of 30 degrees of extension and 90 degrees of external rotation. Fluoroscopy was used to ensure there was no fracture and the stem was seated well. Leg lengths were checked with an AP pelvis and pelvic reference points. [employer] navigation system was used to confirm appropriate positioning and leg length and offset. This accurately recreated our leg length and offset as per the template. Once content with the desired offset and leg lengths, the leg was brought back into extension, external rotation and adduction. The periosteum and surrounding tissue was injected with remaining portion of the abby-articular cocktail. The proximal femur was irrigated as well as the deep tissues. The Depuy Actis Standard stem, size 9, was then manually inserted into the proximal femur making sure to control rotation. It was then malleted into position with light blows, giving breaks to allow bone expansion and decrease risk of fracture. The selected Depuy Altrx Ceramic Head, size 36+5mm, was then placed onto the clean and dry trunnion and secured with impaction onto the tapered fit. The leg was brought back out of extension and adduction and reduced with traction and internal rotation. Stability was confirmed with no shuck at 90 degrees of external rotation and 30 degrees of extension. No impingement through range of motion arc. Final x-ray images were obtained with fluoroscopy to confirm adequate positioning and no intraoperative fracture. The deep tissues were thoroughly irrigated with Irrisept chlorhexadine solution. The second dose of TXA 1g was administered intravenously.The capsule was then reapproximated with the previously placed Ethibond sutures. The TFL fascia was finally closed with a No. 2 Stratafix, barbed suture. Deep tissues were then reapproximated with 0 Vicryl and a running 2-0 Vicryl. The skin was closed with a running 4-0 Monocryl in a subcuticular fashion. This was reinforced with skin glue. A Mepilex silver dressing was applied. LEFT Side Keeping the back table sterile, the drapes were removed, light handles changed, and fluoroscopy switched rooms sides. Once again, a AP hip was obtained to serve as a reference for determining leg lengths. The left leg was then prepped with Chloraprep and draped in a standard fashion. A second prep with Chloraprep was performed prior to placement of a shower-curtain type drape with Iodine impregnated skin protection. A timeout was once again performed to ensure that there were no issues to proceed. An obliquely oriented incision was made starting lateral to the ASIS and running distal over the Tensor Fascia Jacque (TFL) muscle belly toward the fibular head, approximately 10cm. The skin and soft tissue was dissected sharply, through Dunia?s fascia, and to the fascia of the TFL. With the fascia and superior border of the IT band identified, the fascia was incised with a new knife just above any perforators from the IT band. The TFL muscle belly was bluntly dissected away from the fascia and moved laterally. The fat between TFL and rectus was identified to ensure the dissection was not within the TFL. Blunt dissection created space between abductors and the capsule and retractor was placed over the lateral femoral neck. The fibers of the rectus femoris tendon were identified and these were freed from the anterior capsule. A second cobra retractor was placed around the medial femoral neck. The TFL was further retracted laterally to show the deep fascia. Careful dissection through this layer identified three main crossing vessels of the lateral femoral circumflex. These were cauterized in multiple locations and then cut without any noticeable bleeding. The TFL was further released bluntly from the deep fascia to expose anterior hip capsule and fat The Sudhir orthopaedic retractor was then placed beneath the TFL and against sartorius and medial soft tissues to protect and retract the soft tissues. A T-capsulotomy was then performed starting at the superior lateral acetabulum and moving distally to the intertrochanteric ridge. These capsular flaps were tagged with a No. 1 Ethibond and elevated from within. The capsular flaps were released to the shoulder of the lateral neck and to the lesser trochanter to give excellent visualization of the proximal femur. A neck osteotomy was performed using an oscillating saw based on preoperative templates. This cut started in the shoulder and of the lateral neck and exited medially. The saw was at all times directed medially to avoid injury to the greater trochanter. Gentle traction was applied to the leg and the osteotomy opened. The femoral head was removed with a corkscrew, making sure to protect the TFL on its exit. This was measured on the back table to determing the starting reamer size. Portions of the rectus obscuring visualization were minimally elevated off the superior acetabulum. An anterior retractor was placed over the anterior wall between capsule and labrum and attached to the Gripper retraction system. A posterior retractor was placed similarly. This provided excellent visualization. The contents of the cotyloid fossa were removed with electrocautery and the labrum was removed with a knife. Acetabular reaming began with a 50mm reamer. This first reaming was directed anterior to posterior and medial to get down to the true floor. This was inspected and reamed until the true floor was reached. The anterior retractor was then released and entry and exit was provided by traction on the capsular flaps. I then reamed sequentially up to a 54mm reamer where good fit was obtained. The larger reamers were oriented based on anatomical reference of the anterior and lateral lala to ensure proper abduction and anteversion. Positioning and size was confirmed with the fluoroscopy. A 54mm Depuy Silver acetabular component was selected. The acetabulum was reamed around the periphery with the selected acetabular size to prevent a rim fit. The deep tissues were irrigated. The acetabular component was then impacted in a position of about 40-45 degrees of abduction and 15-20 degrees of anteversion, using the patient?s anatomy as the ultimate landmark. Fluoroscopy was used to confirm this. There was excellent technical architect of the acetabular component and the inserting handle was removed. The acetabular liner, Depuy [id number] polyethylene liner, was inserted and lined up with the tines of the acetabular component. There was no soft tissue interposition. The liner was then impacted into position and confirmed to be well-seated. A portion of the abby-articular cocktail was then injected around the acetabulum into the capsule and periosteum. This cocktail consisted of 50cc of 0.25% Bupivicaine and 20cc of Exparel, expanded to a total of 120cc. Traction was released from the femur. The leg was rotated to 120 degrees. Any remaining medial capsule was released until the lesser trochanter was easily palpable. A Cole retractor was placed medially. The lateral capsule was further released into the shoulder to allow access to the greater trochanter. A Cole retractor was placed over the greater trochanter which allowed the trochanter to flip in front of the capsule for excellent exposure. The leg was brought down into maximal extension and 20 degrees of adduction while ensuring there was no impingement on the acetabulum. Any remnant capsule within the trochanter was released. Piriformis and obturator externis were identified and protected. There was excellent access to the proximal femur. The lateral neck remnant was removed with a rongeur. A blunt canal probe was used to identify the canal and trajectory for later broaching. A box osteotome initiated the broach course. A small curved rasp and a curved curette were used to work laterally. Broaching then began with a size 0 Actis broach. This was inserted manually around the trochanter and into the canal before mallet blows. The broach was seated to a few millimeters below the cut level based on the neck cut and the preoperative template. Sequential broaching was continued until a tight fit was obtained with good rotational control of the femur. A trial standard neck was inserted along with a +5 trial head. The leg was brought out of extension and adduction and then reduced with traction and internal rotation. The leg was stable anteriorly in a position of 30 degrees of extension and 90 degrees of external rotation. Fluoroscopy was used to ensure there was no fracture and the stem was seated well. Leg lengths were checked with an AP pelvis and pelvic reference points. [employer] navigation system was used to confirm appropriate positioning and leg length and offset. This slightly undercorrected the offset but was much better with the 8.5mm head. Thus, I advanced the broach 1mm and used the 8.5mm head. The periosteum and surrounding tissue was injected with remaining portion of the abby-articular cocktail. The proximal femur was irrigated as well as the deep tissues. The Depuy Actis standard stem, size 9, was then manually inserted into the proximal femur making sure to control rotation. It was then malleted into position with light blows, giving breaks to allow bone expansion and decrease r isk of fracture. The selected Depuy Altrx Ceramic Head, size 36+8.5mm, was then placed onto the clean and dry trunnion and secured with impaction onto the tapered fit. The leg was brought back out of extension and adduction and reduced with traction and internal rotation. Stability was confirmed with no shuck at 90 degrees of external rotation and 30 degrees of extension. No impingement thr ough range of motion arc. Final x-ray images were obtained with fluoroscopy to confirm adequate positioning and no intraoperative fracture. The deep tissues were thoroughly irrigated with Irrisept chlorhexadine solution. The capsule was then reapproximated with the previously placed Ethibond sutures. The TFL fascia was finally closed with a No. 2 Stratafix, barbed suture. Deep tissues were then reapproximated with 0 Vicryl and a running 2-0 Vicryl. The skin was closed with a running 4-0 Monocryl in a subcuticular fashion. This was reinforced with skin glue. A Mepilex silver dressing was applied. At the end of the case, all counts were correct. Julio Cesar was transferred to the hospital bed without difficulty and suffering no apparent complication. Julio Cesar has a good prognosis. Physical therapy will start today and without restrictions, weight-bearing as tolerated. He will continue his baseline Coumadin for DVT prophylaxis.
--- NOTE | 2022-02-10 15:06 | W.ANESPOSTOP ---
Postoperative Evaluation Date, Time and Location Date Performed: 02/10/22 Time Performed: 15:06 Patient Location: PACU Vital Signs Most Recent Imported Vital Signs: Most Recent Vital Signs Temp Pulse Resp BP Pulse Ox 36.0 C L 65 12 90/45 L 96 02/10/22 14:10 02/10/22 14:50 02/10/22 14:50 02/10/22 14:50 02/10/22 14:50 Pain Score Most Recent Pain Score: Most Recent Pain Score Pain Level 0 02/10/22 14:50 Assessment Mental Status: Awake (Alert & Oriented to Patient Baseline) Airway and Respiratory Function: Patent airway with normal (patient baseline) respiratory exam Cardiovascular Function: Hemodynamically Stable Hydration Status: Adequately Hydrated Nausea & Vomiting: No Nausea or Vomiting Pain: Pt. Denies Any Pain Peripheral Nerve Block: Patient did not receive a nerve block
--- NOTE | 2022-02-10 16:38 | PT.INIE ---
Date of service: 02/10/22 Time of Service: 16:38 PT Notes Visit Reasons: Bilateral SARA's Physical Therapy Inpatient Initial Evaluation Date: 02/10/2022 Referring Doctor: LUX Lion PT Orders: PT CONSULT: S/p Ortho surgery Precautions: Fall. Standard. WBAT on B LE with AD. Patient Profile/Admitting Diagnosis: Julio Cesar is an 81-year-old male with bilateral primary osteoarthritis of B hips and S/P bilateral anterior total hip arthroplasty on postoperative day 0. PMHX: Medical History?(Updated 02/02/22 @ 08:57 by Mc Toro RN) Afib Arcus senilis BPH (benign prostatic hyperplasia) Carpal tunnel syndrome of right wrist Chronically dry eyes Coronary artery disease with angina pectoris Stent placement 2000 Elevated PSA 2007, since normalized Hematuria Hemorrhoids Left knee DJD Myositis Neutrophilic leukocytosis Osteoarthritis of left shoulder Peripheral neuropathy Sacroiliac joint dysfunction of both sides Sexual dysfunction Spinal Stenosis of Lumbar Region Tremor of both hands Trochanteric bursitis of right hip (08/12/15) Injected: 08/14/2019Varicose veins of lower extremity With Edema Surgical History? Amputation right index finger Colonoscopy - MAC 2004; NEG 2009; TUBULAR ADENOMA Replacement of total knee joint (04/28/17) LEFT DR. ENGLISH Stent placement (~2000) Social History/Home Situation: Lives with in a private home with a ramp to enter. Has made his house handicap-accessible. Occasionally uses his front-wheeled walker prior to surgery. has been helping take care of his as he states that she has not been well. Equipment Owned/DME: FWW Subjective: Agreeable to PT consult. Reports burning pain in the R hip and moderate ache in the L at 5-6/10 pain with weight-bearing. Nurse Heydi aware and has just given patient 1000 mg of Tylenol. Denies headache, chest pain, lightheadedness, back pain throughout session. Objective: General Observation: Supine in bed. IV through L UE. Heredia catheter in place. SCDs in place. B TEDS in place. hearing on the L. hears better on the L. R hearing aid under repair. Mental Status: Alert and oriented as to person, place, time, and purpose. Able to pay attention, focus, and respond appropriately. Pain: 5-6/10 in R and L hip Vital Signs: WNL as closely monitored by Nurse Soliz ROM: Right Lower Extremity: Hip flexion about 90 degrees with pain at end of range. Hip abduction 20 degrees with pain at end of range. Knee flexion WFL. Knee extension WFL. Ankle dorsiflexion WFL. Ankle plantarflexion WFL. Left Lower Extremity: Hip flexion about 90 degrees with pain at end of range. Hip abduction 20 degrees with pain at end of range. Knee flexion WFL. Knee extension WFL. Ankle dorsiflexion WFL. Ankle plantarflexion WFL. Strength: Right Lower Extremity: Hip flexors 3-/5. Hip abductors 3-/5. Knee flexors 4-/5. Knee extensors 4-/5. Ankle dorsiflexors 4-/5. Ankle plantarflexors 4-/5. Left Lower Extremity: Hip flexors 3-/5. Hip abductors 3-/5. Knee flexors 4-/5. Knee extensors 4-/5. Ankle dorsiflexors 4-/5. Ankle plantarflexors 4-/5. Bed Mobility/Transfers: Supine to sit with minimal assist Sit to stand with minimal assist using FWW Stand to sit with minimal assist using FWW Bed to reclining chair with minimal assist using FWW Gait: Instructed patient with level surface ambulation of 10 feet requiring minimal assist. Gait antalgic. Step height decreased on B sides. Step length decreased on B sides, step to gait pattern. Reports 5-6/10 burning pain with R hip >>than the L hip. No loss of balance. mInimal shortness of breath that decreased with rest. Balance: Static Sitting: Good Dynamic Sitting: Good Static Standing: Fair Dynamic Standing: Fair Special Tests: Mobility Limitations Standardized Measure [facility] AM-PAC 6 clicks Basic Mobility Inpatient Short Form: Raw Score: 18 CMS Score: 47% deficit Informed Consent/Education: Patient was instructed in purpose of PT consult and plan of care. Agreeable to proceed with established PT POC to achieve personal goals. Assessment: Pre-medication for pain needed for each session. Hears better with the L ear. May need HH PT services at home depending on progression towards goals. Patient presents with clinical signs and symptoms consistent with current/admitting diagnoses that have resulted to mobility limitations, gait instability, generalized weakness, and overall ADL decline as demonstrated by the following impairment level findings: 1. Decreased strength to B hip major muscle groups 2. Impaired sitting/standing balance 3. Impaired activity tolerance 4. Limitation of joint range of motion in B hips 5. Pain in B hips Impairments are contributing to the following functional limitations: 1. Decline in bed mobility skills 2. Decline in transfer skills 3. Difficulty with ambulation without assistive device and physical assistance 4. Increased completion time for mobility ADL performance 5. Increased risk for falls 6. Difficulty with managing steps alone safely Patient is assessed as a 19372 moderate complexity based on the following: History: 81-year-old male with past medical history as indicated above Examination: Demonstrable impairment in strength, balance, and mobility level with underlying impairments and functional limitations as exhibited above as well as deficit score of 47% utilizing the [facility] Mobility Inpatient Short Form Presentation: Evolving Decision Makin moderate complexity Goals: Goals X1 week 1. Supine-Sit independent 2. Sit-Supine independent 3. Sit-Stand independent 4. Stand-Sit independent with FWW 5. Bed-Chair independent with FWW 6. Chair-Bed independent with FWW 7. Independent gait on level surface with use of FWW for at least 300 feet without report of pain nor dyspnea 8. Good static and dynamic standing balance/tolerance Plan of Care/Treatment Plan: 1-2x/day, 7 days/week x 1 week. Plan of care has been reviewed with the GENERAL MILLING SUPERINTENDENT providing the service under Physical Therapy direction. Initiate Physical Therapy intervention for pain management as needed, strengthening, bed mobility, transfers, gait, stairs, balance training, and use of assistive device. DISCHARGE RECOMMENDATIONS: [] Home with no services [] [X] Home with services. Home when medically cleared by orthopedic surgeon. Patient will benefit from home health PT services in order to progress mobility level using least restrictive assistive ambulatory device, assess home safety, identify additional equipment needs, and establish a functional maintenance program that will increase ability of patient to remain at home. [] Home with outpatient PT [] [] SNF for continued rehabilitation [] [] Traffic Manager Care [] [] SNF versus LTC based on ability to participate and progress [] TREATMENT CODE/TIME: 90842 x 22 minutes beginning at 16:38 PM. Thank you for the opportunity to participate in the care of this patient. Janie Barksdale PT, DPT, CLT [facility], [place]
[2022-02-10] MEDS: ceFAZolin 1 GM/50 ML BAG IVPB ×2 (16:39→23:28)
[2022-02-10] MEDS: Acetaminophen 500 MG TAB 1000 MG PO ×2 (16:39→19:50)
[2022-02-10] MEDS: oxyCODONE 5 MG TAB PO ×2 (17:59→21:28)
[2022-02-10] MEDS: Celecoxib 200 MG CAP PO (19:50)
[2022-02-10] MEDS: Docusate Sodium 100 MG CAP PO (21:28)
[2022-02-10] MEDS: Gabapentin 300 MG CAP 600 MG PO (21:28)
[2022-02-11] VITALS (11 sets, daily range): BP systolic 80–130; BP diastolic 50–74; PULSE 69–79; RESP 14–19; TEMP 36.6–37.3; O2SAT 93–97
[2022-02-11] MEDS: oxyCODONE 5 MG TAB PO ×3 (04:56→18:42)
[2022-02-11] MEDS: Lactated Ringers 1,000 ML 1000 ML IV (05:02)
[2022-02-11 07:08] LABS: INR 1.1 (0.9-1.1); Prothrombin Time 11.2 sec (9.3-11.0)
[2022-02-11] MEDS: ceFAZolin 1 GM/50 ML BAG IVPB (07:44)
[2022-02-11] MEDS: Metoprolol 25 MG TAB PO ×2 (07:45→19:57)
[2022-02-11] MEDS: Celecoxib 200 MG CAP PO ×2 (07:45→19:57)
[2022-02-11] MEDS: Gabapentin 300 MG CAP PO (07:45)
[2022-02-11] MEDS: Allopurinol 100 MG TAB PO (07:45)
[2022-02-11] MEDS: Finasteride 5 MG TAB PO (07:46)
[2022-02-11] MEDS: Acetaminophen 500 MG TAB 1000 MG PO ×3 (07:46→19:57)
[2022-02-11] MEDS: Pantoprazole 40 MG TABCR PO (07:46)
[2022-02-11 08:25] LABS: HGB 12.1 g/dL (13.5-17.5)
--- NOTE | 2022-02-11 08:29 | W.PM.PROGNOT ---
Date of Service Date of service: 02/11/22 Time of Service: 08:29 Assessment and Plan Assessment and plan (1) Bilateral primary osteoarthritis of hip: Status: Acute Assessment and plan: Julio Cesar is an 81-year-old status post bilateral hip replacements. In general, I think he is doing well. He has had some hypotension which I do not think is unexpected. We will hold his blood pressure medications for any systolics less than 100-110 mmHg. We will continue to work physical therapy. He has been able to ambulate but has had difficulty with doing it unassisted. He will need be able to be unassisted be able to go home. I do expect that this will continue to improve. His pain has been controlled with oral medications. I will check hemoglobin and BMP later today to ensure there is been no significant changes. I do expect he will mobilize some fluid later today and tomorrow. Remove the Heredia later today once he is up again. Complete 3 doses of postoperative Ancef. Weightbearing as tolerated. Coumadin for DVT prophylaxis per his baseline dose, 2.5 mg daily. Subjective Subjective Interval history since last seen: Julio Cesar reports to be doing well. He was able to ambulate with physical therapy yesterday and is out of the bed with nursing this morning. He does report some pain about the anterior and anterior lateral aspect of the thighs with a slight burning consistency. He denies any gross instability. No fevers and chills. No chest pain or shortness of breath. He has had some hypotension which has responded to fluids with minimal urine output at this point which is concentrated per nursing. Exam Narrative Exam Narrative: Sitting up in the chair. No acute distress. Alert orient x3. Evaluation of the bilateral hips shows dressings which are clean dry and intact. A minimal amount of ecchymosis seen about the right hip. There is some mild swelling but no loculated collections. No significant pain with hip internal and external rotation. Mild pain to palpation about the anterior and anterolateral aspect of the thighs. Sensation intact light touch over the deep and superficial peroneal nerve and tibial nerve. Sensation is also intact over the femoral nerve distribution. Mild dysesthesias noted around the incision and just distal and posterior to it bilaterally. Objective Last Vital Signs Temp 37.2 C 02/11/22 07:14 Pulse 77 02/11/22 07:14 Resp 18 02/11/22 07:14 BP 97/60 L 02/11/22 07:14 Pulse Ox 94 02/11/22 07:14 Laboratory Results - last 24 hr 02/11/22 02/11/22 06:10 08:15 Hgb 12.1 L D PT 11.2 H INR 1.1
[2022-02-11 09:15] LABS: Anion Gap 9.5 mmol/L (3-11); BUN 24 mg/dL (7-18); CO2 25.5 mmol/L (21.0-32.0); CREATININE 1.1 mg/dL (0.70-1.30); Calcium 8.6 mg/dL (8.5-10.1); Chloride 100 mmol/L (98-107); Glucose 125 mg/dL (74-106); Potassium 4.6 mmol/L (3.5-5.1); Sodium 135 mmol/L (136-145)
[2022-02-11] MEDS: Normal Saline Flush 10 ML SYR IV (09:18)
--- NOTE | 2022-02-11 10:42 | PDOC.CMIN ---
- If Service Date Differs Date of service: 02/11/22 Time of Service: 10:42 Care Management Initial Assess REASON FOR HOSPITALIZATION:: Bilateral SARA PAST MEDICAL HISTORY/PAST SURGICAL HISTORY:: All Active Problems (Updated 12/19/21 @ 15:04 by Jean Paul Kraus MD). Prostate cancer (Chronic). Chronic pain syndrome (Chronic). 09/2021-drug contract at [facility], tramadol-for low back pain. Low back pain (Acute). Foot pain, left (Acute). Lumbosacral radiculitis (Acute). Gout (Chronic). 2020- MP joint, uric acid. 7.5. Elevated PSA (Acute). followed by Urology. Prostatitis (Acute). Leukocytosis (Acute). chronic. Heme consult [facility] 07/15, normal wbc-03/2021. Anticoagulated on warfarin (Chronic). A-fib; INR goal 2-3. Atherosclerosis of [place] coronary artery with angina pectoris (Chronic). stent. neg mpi 02/08. Atrial fibrillation (Chronic). remote hx, on warfarin. BPH associated with nocturia (Chronic 03/13/16). Essential hypertension (Chronic 09/04/13). Hyperlipidemia (Chronic 10/18/12). Internal hemorrhoids without complication (Chronic). Tubular adenoma of colon (Chronic 03/06/14). Vertigo (Chronic 10/01/15). requires occasional E[place]. History of intravascular stent placement (Acute). History of amputation (Acute). finger. B12 deficiency (Acute). Medical History (Updated 12/19/21 @ 15:04 by Jean Paul Kraus MD). Afib. Arcus senilis. BPH (benign prostatic hyperplasia). Carpal tunnel syndrome of right wrist. Chronically dry eyes. Coronary artery disease with angina pectoris. Stent placement 2000. Elevated PSA. 2007, since normalized. Hematuria. Hemorrhoids. Left knee DJD. Myositis. Neutrophilic leukocytosis. Osteoarthritis of left shoulder. Peripheral neuropathy. Sacroiliac joint dysfunction of both sides. Sexual dysfunction. Spinal Stenosis of Lumbar Region. Tremor of both hands. Trochanteric bursitis of right hip (08/12/15). Injected: 08/14/2019. Varicose veins of lower extremity. With Edema. Surgical History . Amputation. right index finger. Colonoscopy - MAC. 2004; NEG. 2009; TUBULAR ADENOMA. Replacement of total knee joint (04/28/17). LEFT DR. ENGLISH. Stent placement (~2000) PREVIOUS FUNCTIONAL STATUS/SOCIAL/FAMILY SUPPORTS:: Julio Cesar lives in [place] in a single family home on [address] with his Olga. They have 5 children between them who live in [place]. They also have 4 grandchildren and 4 great grandchildren. 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. He is independent at baseline but has been using a walker and/or can due to the issues with his hips. CURRENT FUNCTIONAL STATUS:: Julio Cesar was sitting up in a chair when CM met with him. He was pleasant and agreeable to coinversation. Ildefonso talkked about his home in [place] which he has put a lot of work into and is very proud of. He also talked about his life in [place]. and how much he enjoys [place] in comparison. he has been here for about 40 years. Julio Cesar denied the need for services at home. ADVANCE DIRECTIVES:: none on file Has patient been provided with info about the portal/API?: Yes Did the patient sign up for the portal?: No CODE STATUS:: Full Code INSURANCE COVERAGE / FINANCIAL ISSUES:: Medicare. AARP CURRENT HOME/COMMUNITY SERVICES/EQUIPMENT:: uses a walker and/or a cane PRIMARY CARE PHYSICIAN:: Carlos Wray POTENTIAL DISCHARGE NEEDS:: PT. Follow up with Orthopedics and PCP and plan of care PATIENT/FAMILY EDUCATION NEEDS:: Review of discharge instructions, limitations, activity, follow up plan, Ask Me Three TRANSPORTATION:: via private vehicle with family PLAN:: Julio Cesar will likely be discharged home with no new services. He will follow up with his community providers and plan of care and transport with family. CM will support Julio Cesar and his discharge needs.
--- NOTE | 2022-02-11 10:48 | CHAPLAIN ---
Julio Cesar is up in the chair his morning. He said he has walked some with physical therapy. He had both hips replaced. During the procedure for anaesthesia , Julio Cesar said a nerve was hit in his left thigh, and that has caused him some pain. Julio Cesar has been in touch with his , who called him at 6:30 am. Ramiro said he was up at that time because he didn't sleep well last night.
[2022-02-11] MEDS: Normal Saline 1,000 ML 1000 ML IV (11:31)
--- NOTE | 2022-02-11 13:45 | PT.INTREAT ---
PT Notes Visit Reasons: Bilateral SARA's Inpatient Physical Therapy Treatment Note [facility] Date: 02/11/22 SUBJECTIVE: Julio Cesar states that he is doing better. Reports his biggest concern to be his BP as it has been low. He c/o buring/tight sensation in B thighs left greater than right. OBJECTIVE: [] BED MOBILITY/TRANSFERS pt already up in recliner Sit-stand: SBA/S Stand-sit: SBA/S GAIT Assistive Device: FWW Weight bearing: AT Assist: SBA/CGA Distance: 250' in am and 325' in pm THEREX: performed global LE strength and stabilization routine including HR x10, SSH x10, mini squats x 6, seated LAQ x 10 and abd x10. ASSESSMENT: tolerated session well. No LOB noted. Able to stand unassisted with good balance. Fairly independent with transfers and ambulation. No c/o dizzy or lightheadedness. PLAN: continue working on strength and stabilization to tolerance following PT POC TREATMENT CODE/TIME: 25 min in am, 20 min in pm ([id number], [id number])
--- NOTE | 2022-02-11 16:40 | PHA.REVIEW ---
Pharmacy Admission Review - Admission Clinical Review (Last Reviewed 02/10/22 @ 09:24 by Jaimie Higginbotham) Bilateral primary osteoarthritis of hip (Acute) tamsulosin HCl [From Flomax] Adverse Reaction (Unknown, Verified 02/10/22 09:08) dizzy Resuscitation Status Full Code Height 5 ft 10 in Weight 112.7 kg - Renal Dosing Renal Dosing: BUN 24 mg/dL (7-18) H 02/11/22 08:15 Creatinine 1.1 mg/dL (0.70-1.30) 02/11/22 08:15 Medications needing adjustments: N/A (crcl = 67) - Anticoagulation Anticoagulation: Hgb 12.1 g/dL (13.5-17.5) L D 02/11/22 08:15 INR 1.1 (0.9-1.1) 02/11/22 06:10 Creatinine 1.1 mg/dL (0.70-1.30) 02/11/22 08:15 DVT Prophylaxis: Reviewed Medications: Warfarin Therapeutic Anticoagulation: Reviewed Medications: Warfarin (INR = 1.1) - Opiate Usage Evaluate Pain Scale/Pains Meds: Reviewed (has oxycodone 5-10 mg q6hprn ordered, has recieved 4 doses in the past 24 hours. dilaudid 0.5 mg IV q2prn ordered, has not used any) Scheduled Bowel Reg ordered if on Opiates?: Yes - Relevant Labs Sodium 135 mmol/L (136-145) L 02/11/22 08:15 Potassium 4.6 mmol/L (3.5-5.1) 02/11/22 08:15 Chloride 100 mmol/L (98-107) 02/11/22 08:15 Electrolytes, C-Reactive P, ESR: Reviewed - DM Control DM Control: Glucose 125 mg/dL (74-106) H 02/11/22 08:15 Insulin Dosing: N/A - Heart Failure/AR EF%, CARMELO's, B-Blockers, Diuretics: Reviewed (takes metoprolol, losartan, amlodipine) - BP Control BP Control: Blood Pressure [Standing] 97/60 Blood Pressure 117/74 Blood Pressure 103/68 Blood Pressure 104/66 Blood Pressure 80/51 Blood Pressure 106/59 Blood Pressure 115/67 If elevated: Reviewed (some low readings, it's possible pt is not taking metoprolol at home (last fill 07/2021 #90 day supply)) - Qtc Review If Elevated: Reviewed (EKG from 01/20/22. QTc = 466) - IV to PO Switch IV Medications: Reviewed - Home Meds Home Med List reviewed: Reviewed (upon review, pt has protocol dosing for coumadin (takes 5 mg Sun, Mon, Wed, Wednesday & takes 2.5 mg on , , Wed) - spoke with Dr. Fitzgerald, will update orders to match protocol) Relevent Home Meds Not ordered & why?: nasal sprays ordered (triamcinolone, azelastine) however these are non-formulary and pt will need to supply from home - Current meds Current Medication Order Review: Reviewed (IV ancef x 3 doses completed)
[2022-02-11] MEDS: Docusate Sodium 100 MG CAP PO (19:56)
[2022-02-11] MEDS: Warfarin 5 MG TAB PO (19:56)
[2022-02-11] MEDS: Methocarbamol 500 MG TAB PO (19:57)
[2022-02-11] MEDS: Gabapentin 300 MG CAP 600 MG PO (21:37)
[2022-02-11] MEDS: Melatonin 3 MG TAB 6 MG PO (21:37)
[2022-02-12 03:44] VITALS: BP 98/61; PULSE 85; RESP 16; TEMP 37.2; O2SAT 95
[2022-02-12] MEDS: Methocarbamol 500 MG TAB PO (03:47)
[2022-02-12] MEDS: oxyCODONE 5 MG TAB PO (03:47)
[2022-02-12 06:46] LABS: INR 1.1 (0.9-1.1); Prothrombin Time 10.8 sec (9.3-11.0)
[2022-02-12] MEDS: Acetaminophen 500 MG TAB 1000 MG PO ×2 (07:46→14:01)
[2022-02-12] MEDS: Pantoprazole 40 MG TABCR PO (07:47)
[2022-02-12] MEDS: Finasteride 5 MG TAB PO (07:48)
[2022-02-12] MEDS: Celecoxib 200 MG CAP PO (07:48)
[2022-02-12] MEDS: Allopurinol 100 MG TAB PO (07:48)
[2022-02-12] MEDS: Gabapentin 300 MG CAP PO (07:49)
[2022-02-12 08:33] VITALS: BP 94/65; PULSE 64; RESP 16; TEMP 36.2; O2SAT 100
--- NOTE | 2022-02-12 09:19 | INDS_ITS ---
Date of service: 02/12/22 Time of Service: 09:19 PT Notes Visit Reasons: Bilateral SARA's Physical Therapy Inpatient Discharge Summary Date: 02/10/2022 DAtes of Service: 02/10/2022 through 02/12/2022 Referring Doctor: LUX Lion PT Orders: PT CONSULT: S/p Ortho surgery Precautions: Fall. Standard. WBAT on B LE with AD. Patient Profile/Admitting Diagnosis:? Julio Cesar is an 81-year-old male with bilateral primary osteoarthritis of B hips and S/P bilateral anterior total hip arthroplasty on postoperative day 0. PMHX: Medical History?(Updated 02/02/22 @ 08:57 by Mc Toro RN) Afib Arcus senilis BPH (benign prostatic hyperplasia) Carpal tunnel syndrome of right wrist Chronically dry eyes Coronary artery disease with angina pectoris Stent placement 2000 Elevated PSA 2007, since normalized Hematuria Hemorrhoids Left knee DJD Myositis Neutrophilic leukocytosis Osteoarthritis of left shoulder Peripheral neuropathy Sacroiliac joint dysfunction of both sides Sexual dysfunction Spinal Stenosis of Lumbar Region Tremor of both hands Trochanteric bursitis of right hip (08/12/15) Injected: 08/14/2019Varicose veins of lower extremity With Edema Surgical History? Amputation right index finger Colonoscopy - MAC 2004; NEG 2009; TUBULAR ADENOMA Replacement of total knee joint (04/28/17) LEFT DR. ENGLISH Stent placement (~2000) Social History/Home Situation: Lives with in a private home with a ramp to enter.? Has made his house handicap-accessible.? Occasionally uses his front-wheeled walker prior to surgery.? has been helping take care of his as he states that she has not been well. Equipment Owned/DME: FWW Subjective: Happy to be going home today. Pain level much better. Objective: General Observation: Supine in bed.? IV through L UE.? B TEDS in place. Mental Status: Alert and oriented as to person, place, time, and purpose. Able to pay attention, focus, and respond appropriately. Pain: 2-3/10 in B hips and thighs Vital Signs: WNL as closely monitored by Nurse Soliz ROM: Right Lower Extremity: Hip flexion about 90 degrees with pain at end of range. Hip abduction 20 degrees with pain at end of range. Knee flexion WFL. Knee extension WFL.? Ankle dorsiflexion WFL. Ankle plantarflexion WFL. Left Lower Extremity: Hip flexion about 90 degrees with pain at end of range. Hip abduction 20 degrees with pain at end of range. Knee flexion WFL. Knee extension WFL.? Ankle dorsiflexion WFL. Ankle plantarflexion WFL. Strength: Right Lower Extremity: Hip flexors 3-/5. Hip abductors 3-/5. Knee flexors 4-/5. Knee extensors 4-/5. Ankle dorsiflexors 4-/5. Ankle plantarflexors 4-/5. Left Lower Extremity: Hip flexors 3-/5. Hip abductors 3-/5. Knee flexors 4-/5. Knee extensors 4-/5. Ankle dorsiflexors 4-/5. Ankle plantarflexors 4-/5. Bed Mobility/Transfers: Supine to sit independent Sit to stand independent Stand to sit independent Bed to reclining chair with independent Gait: Instructed patient with level surface ambulation of 200 feet requiring stand by assist with 2-3 standing rests due to shortness of breath. Step height decreased on B sides. Step length decreased on B sides, step to gait pattern.? Reports 2-3/10 pain in B hips.? No loss of balance.? Balance: Static Sitting: Good Dynamic Sitting: Good Static Standing: Fair Dynamic Standing: Fair Assessment: Provided with written home exercise program after re-education and retraining on HEP for this session this morning. May need PT services at home depending on progression towards goals.? Patient presents with clinical signs and symptoms consistent with current/admitting diagnoses that have resulted to mobility limitations, gait instability, generalized weakness, and overall ADL decline as demonstrated by the following impairment level findings: 1.? Decreased strength to? B hip major muscle groups 2.? Impaired sitting/standing balance 3.? Impaired activity tolerance 4.? Limitation of joint range of motion in B hips 5.? Pain in B hips Impairments are contributing to the following functional limitations: 1.? Difficulty with ambulation without assistive device 2.? Increased completion time for mobility ADL performance 3.? Increased risk for falls Goals: Goals X1 week 1. Supine-Sit independent MET 2. Sit-Supine independent MET 3. Sit-Stand independent MET 4. Stand-Sit independent with FWW MET 5. Bed-Chair independent with FWW MET 6. Chair-Bed independent with FWW MET 7. Independent gait on level surface with use of FWW for at least 300 feet without report of pain nor dyspnea NOT MET 8. Good static and dynamic standing balance/tolerance NOT MET DISCHARGE RECOMMENDATIONS: [] ? Home with no services [] [X] ? Home with services.? Home when medically cleared by orthopedic surgeon.? Patient will benefit from home health PT services in order to progress mobility level using least restrictive assistive ambulatory device, assess home safety, identify additional equipment needs, and establish a functional maintenance program that will increase ability of patient to remain at home. [] ? Home with outpatient PT [] [] ? SNF for continued rehabilitation [] [] ? Intermediate Care [] [] ? SNF versus LTC based on ability to participate and progress [] TREATMENT CODE/TIME: 83722 x 24 minutes beginning at? 9:19 AM. Thank you for the opportunity to participate in the care of this patient. Janie Barksdale PT, DPT, CLT [facility] [place], [place]
[2022-02-12 11:45] VITALS: BP 107/57; PULSE 63; RESP 18; TEMP 36.4; O2SAT 96
--- NOTE | 2022-02-12 13:29 | W.PM.DS.N ---
Date of service: 02/12/22 Time of Service: 13:00 DS: Diagnosis Discharge Diagnosis (1) Bilateral primary osteoarthritis of hip: Status: Acute Discharge Plan Disposition Patient Disposition: HOME Condition: Stable Discharge Details Reason For Visit: Bilateral SARA's Admit Date/Time: 02/10/22 06:29 Admit Provider: Aneesh Fitzgerald Attending Provider: Aneesh Fitzgerald Primary Care Provider: Carlos Wray Hospital Course Hospital Course: Patient was admitted to the medical/surgical floor following the procedure. The surgery was tolerated well without any notable medical, surgical, or anesthetic complications. Julio Cesar did have some mild hypotension which responded well to fluids. Mobilization began postoperatively. He was voiding spontaneously. Vitals were stable. Physical therapy worked with the patient and was cleared for discharge home. No acute medical issues. Pain was controlled on oral regimen. Home Meds and New Rx's Prescriptions: New celecoxib [Celebrex] 200 mg capsule 200 mg PO BID Qty: 60 0RF pantoprazole [Protonix] 40 mg tablet,delayed release (DR/EC) 40 mg PO DAILY Qty: 30 0RF acetaminophen 500 mg capsule 1,000 mg PO Q8H PRN PRNQty: 90 0RF tramadol 50 mg tablet 50 mg PO Q6H PRNQty: 14 0RF oxycodone 5 mg tablet 5 mg PO Q4H Qty: 18 0RF Continued ProAir RespiClick 90 mcg/actuation aerosol powdr breath activated 2 inh inhalation Q6H PRN (Reason: shortness of breath or wheezing) Qty: 1 2RF allopurinol 100 mg tablet 100 mg PO DAILY Qty: 90 3RF triamcinolone acetonide [Nasacort] 55 mcg aerosol,spray 2 spray intranasal DAILY Qty: 16.9 2RF Rx Instructions: administer into each nostril amlodipine 5 mg tablet 5 mg PO DAILY Qty: 90 3RF gabapentin 300 mg capsule 300 mg PO HS Qty: 1 0RF Label Comments: pt. reports taking 2 pills gabapentin 300 mg capsule 300 mg PO DAILY losartan 100 mg tablet 100 mg PO DAILY Qty: 90 3RF azelastine 137 mcg (0.1 %) aerosol,spray 1 spray intranasal BID Qty: 30 2RF Rx Instructions: administer into each nostril metoprolol tartrate 50 mg tablet 25 mg PO BID Qty: 90 3RF finasteride [Proscar] 5 mg tablet 5 mg PO QAM Qty: 90 3RF warfarin 2.5 mg tablet 2.5 mg PO DIRECTED Qty: 180 4RF Protocol: Dose Management Condition: Wednesday Dose/Route: 5 mg Instruction: 2 x 2.5 mg tablets Condition: Wednesday Dose/Route: 5 mg Instruction: 2 x 2.5 mg tablets Condition: Wednesday Dose/Route: 2.5 mg Instruction: 1 x 2.5 mg tablet Condition: Wednesday Dose/Route: 5 mg Instruction: 2 x 2.5 mg tablets Condition: Dose/Route: 2.5 mg Instruction: 1 x 2.5 mg tablet Condition: Wednesday Dose/Route: 5 mg Instruction: 2 x 2.5 mg tablets Condition: Wednesday Dose/Route: 2.5 mg Instruction: 1 x 2.5 mg tablet Protocol Text: Adjustment Start Date: Wednesday12/26/21 INR Value: 2.8 INR Date: 12/26/21 Recheck Date: 01/25/22 methocarbamol 500 mg tablet 500 mg PO TID PRN (Reason: muscle spasm) Qty: 30 1RF lidocaine [Lidoderm] 1 PATCH patch 1 patch Topical Q24H Qty: 4 0RF Discontinued tramadol 50 mg tablet 25 - 50 mg PO BID MDD 2 tabs PRN (Reason: pain) Qty: 56 2RF Label Comments: pt. reports taking 1/2 pill Discharge Instructions Additional Instructions: Total Hip Discharge Instructions Activity: The most important activity is to walk. You should try to take short walks a few times a day. You have no restrictions on movement or positioning, but do not try to force what you do. You will find some stiffness and weakness with hip flexion (lifting your knee). Do not try to strengthen this too early, continue to practice walking and stairs and this will come. - Outpatient physical therapy can be helpful to help return you to a normal gait and improve your flexibility and strength. This can start around 2 weeks. For some patients, it?s not necessary. Usually this is determined at the time of discharge or at the first post-operative visit. - You should wear the DIANNA hose on both legs for 2 weeks. Dressing: Keep the surgical dressing in place for at least one week. After the first week it may be removed and replace with light gauze and tape or nothing. It may get wet after 3 days but avoid soaking the dressing. If it gets wet, just lightly pat dry. It is important to always keep some gauze between skin folds, especially when you are sitting. Spend some time with the wound exposed when you are lying flat as the incision does wrinkle onto itself. Medications: - You should take Tylenol and an anti-inflammatory Celebrex as your primary pain control medications. If the Celebrex is too expensive or not covered, please call the office for another alternative (Advil/Ibuprofen or Naproxen/Aleve). - You have been prescribed a stronger pain medication Oxycodone for breakthrough pain, take as needed as prescribed. - You have also been prescribed a stomach acid reduction agent Pantoprozole to help reduce stomach acid and reflux. - You will be taking your previously prescribed blood thinner, Warfarin, for DVT prevention unless instructed otherwise. - If you have constipation you should take Colace or Miralax (both [id number]). It takes most people 3-4 days to have a bowel movement. Follow-up: 2 weeks If you have any acute concerns or questions, please do not hesitate to contact the office at [phone]. You may contact Dr. Fitzgerald with any questions after hours through the hospital at [phone] or on his cell phone at [phone]. 1. Encounter Date and Reason I certify that Julio Cesar Rangel was seen by Aneesh Fitzgerald MD on 02/12/22 and that I had a [id number] encounter with this patient that meets the physician face to face encounter requirements. 2. Clinical Findings Supporting Skilled Need and Homebound Status I certify that home health services are medically necessary, include either intermittent half-way and/or physical/speech therapy, and that this patient is homebound in that absences from the home require considerable and taxing effort and are infrequent or of short duration, or are attributable to the need to receive medical care. [X] (a) Attached documentation from encounter provides clinical findings supporting skilled need and homebound status (including what assistance patient requires to leave the home). The encounter with the patient was in whole, or in part, for the following medical condition, which is the primary reason for home health care: Bilateral SARA's Detention: Physical Therapy: Julio Cesar is recoverying from bilateral total hip replacements, anterior approach. He has weakness and pain and ambulatory dysfunction. Initial recovery should focus on independent transfer and ambulation with slow strengthening. He has no positioning restrictions. WBAT with assistive devices. He is also on Coumadin for DVT prophylaxis and should have INR draw every Mon and Thurs (or other days but twice per week). Speech Therapy: Homebound: 3. Certification and Authentication I certify that I composed the above information based on my clinical judgement relating to this patient's medical condition and, if applicable, clinical findings communicated to me by the NPP or inpatient physician who performed the Home Health Referral. All further orders will be obtained through Dr. Fitzgerald (hip) and Dr. Wray (Coumadin) Stand Alone Forms: Nursing Discharge Form Referrals: Aneesh Fitzgerald MD [ [facility] STAFF PHYSICIAN] - 02/23/22 11:00 am Activity:: Activity as Tolerated Equipment/Supplies:: Walker Diet:: As Tolerated Discharge Orders Discharge Orders: Discharge Order (Routine); Ordered 02/12/22 Ordered By: Aneesh Fitzgerald DS: Summary Time Spent with Patient providing and/or coordinating discharge services: Less than 30 minutes Status at Discharge Functional status at discharge: uses cane/walker Overall status at discharge: patient is progressing back to baseline Mental Status: mental status grossly normal Speech and Movement: speech and movement normal Mood: congruent mood Affect: normal affect Exam Psych Mental Status: mental status grossly normal Speech and Movement: speech and movement normal Mood: congruent mood Affect: normal affect DS: Data Vitals/I&O Vitals and I&O: Vital Signs Temperature 36.4 C L 02/12/22 11:45 Temperature Source Tympanic 02/12/22 11:45 Pulse 63 02/12/22 11:45 Pulse Rhythm Irregular 02/12/22 07:45 Respiratory Rate 18 02/12/22 11:45 Respiratory Effort Non-Labored 02/12/22 07:45 Respiratory Depth Normal 02/12/22 07:45 Respiratory Pattern Normal 02/12/22 07:45 Blood Pressure 107/57 L 02/12/22 11:45 Pulse Oximetry 96 02/12/22 11:45 Respiratory End-tidal CO2 27 02/10/22 15:00 Oxygen Delivery Method Room Air 02/12/22 11:45 Oxygen Flow Rate 0 02/12/22 11:45 Pain Level 3 02/12/22 11:45 Comment 02/11/22 14:06 Intake & Output 02/11/22 02/12/22 02/12/22 23:59 11:59 23:59 Intake Total 1050 / 3220 880 / 880 Output Total 600 / 1100 Balance 450 / 2120 880 / 880 Intake: IV 1050 / 3100 Oral 880 / 880 Output: Urine 600 / 1100 Other: Urine Color Light Ama Urine Appearance Clear Clear Urine Odor None Voiding Methods Urinal Data Completed and Pending Labs on day of discharge: Labs from last 24 hours 02/12/22 06:15 PT 10.8 INR 1.1 PFSH All Active Problems Anticoagulated on warfarin (Chronic) A-fib; INR goal 2-3 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 neg mpi 02/08 Atrial fibrillation (Chronic) remote hx, on warfarin BPH associated with nocturia (Chronic 03/13/16) Essential hypertension (Chronic 09/04/13) Hyperlipidemia (Chronic 10/18/12) Internal hemorrhoids without complication (Chronic) Tubular adenoma of colon (Chronic 03/06/14) Vertigo (Chronic 10/01/15) requires occasional [place] History of intravascular stent placement (Acute) History of amputation (Acute) finger B12 deficiency (Acute) Leukocytosis (Acute) chronic. Heme consult [facility] 07/15, normal wbc-03/2021 Prostatitis (Acute) Elevated PSA (Acute) followed by Urology Gout (Chronic) 2020- 1st MP joint, uric acid. 7.5 Lumbosacral radiculitis (Acute) Foot pain, left (Acute) Low back pain (Acute) Chronic pain syndrome (Chronic) 09/2021-drug contract at [facility], tramadol-for low back pain Prostate cancer (Chronic) Bilateral primary osteoarthritis of hip (Acute) Medical History Afib Arcus senilis BPH (benign prostatic hyperplasia) Carpal tunnel syndrome of right wrist Chronically dry eyes Coronary artery disease with angina pectoris Stent placement 2000 Elevated PSA 2007, since normalized Hematuria Hemorrhoids Left knee DJD Myositis Neutrophilic leukocytosis Osteoarthritis of left shoulder Peripheral neuropathy Sacroiliac joint dysfunction of both sides Sexual dysfunction Spinal Stenosis of Lumbar Region Tremor of both hands pt. reports R hand Trochanteric bursitis of right hip (08/12/15) Injected: 08/14/2019 Varicose veins of lower extremity With Edema Surgical History Amputation right index finger Colonoscopy - MAC 2004; NEG 2009; TUBULAR ADENOMA Hx of removal of cyst pt. reports paralytic cyst at base of spine Replacement of total knee joint (04/28/17) LEFT DR. ENGLISH, pt. reports bilateral Stent placement (~2000) Cardiac stent placement-Per no residual issues. Last saw cards for [facility] 01/20/22 Social History Smoking/Tobacco Use Status: Former Tobacco Use Quit Date: 06/28/01 Smoking risk assessment performed?: Yes Alcohol Intake: current Alcohol Intake frequency: holidays/special occasions only Drug use: Never Substance use type: does not use Details: pt. denies alcohol at all Household members: spouse Housing: house Number of Children: 3 current occupation: retired Current gender identity: male What is your relationship status?: Panel score (0-1 are the most socially isolated patients): 1 What type of physical activity do you participate in: none Do you feel safe at home: Yes Do you feel safe in your relationship?: Yes
--- NOTE | 2022-02-12 14:46 | CMDISCH_ITS ---
- If Service Date Differs Date of service: 02/12/22 Time of Service: 14:46 LACE Index Scoring Tool - Questions: Length of Stay (in days): 2 Acuity (Admit via E.D.?): No E.D. Visits: 1 - Answers: Total Score: 3 Risk of Readmission: Low Risk Care Management Discharge Reason for Hospitalization: Bilateral SARA Discharge Plan: Ramiro is discharged home via private vehicle with family. He will follow up with his community providers and discharge plan of care as prescribed. New [facility] RN/PT services are ordered. New RX's are transmitted to [facility] in [place]. Ramiro will follow up with Dr. Fitzgerald on 02/23/22 at 1100 as scheduled. Patient/Family Education Needs: Review discharge instructions, limitations, medications and plan to follow up with community providers. ask me three. Services Needed at Discharge: Home Health Care Services ([facility] RN/PT, CM notified Paco at [facility])
--- NOTE | 2022-02-12 15:58 | NUR.NOTE ---
Nursing Note: I have reviewed the charting of Gladys Sarabia, and find it complete
== END 2022-02-12 14:08 | disposition home or self-care (01) ==
LOC: PDS 15:40 → MS 15:51
PROVIDERS: Physician Assistant Surgical; Admitting Provider Student in an Organized Health Care Education/Training Program; PCP Family Medicine; Visit Provider Student in an Organized Health Care Education/Training Program
PROC: 0SR90JZ Replacement of Right Hip Joint with Synthetic Substitute, Open Approach (ICD-10-PCS; CPT 27130; principal; 2022-02-10 11:45)
DX: M16.0 Bilateral primary osteoarthritis of hip (principal); I48.91 Unspecified atrial fibrillation; I45.10 Unspecified right bundle-branch block; I25.119 Atherosclerotic heart disease of native coronary artery with unspecified angina pectoris; C61 Malignant neoplasm of prostate; E78.5 Hyperlipidemia, unspecified; Z79.01 Long term (current) use of anticoagulants; I10 Essential (primary) hypertension; R35.1 Nocturia
CPT/HCPCS: 27130; 20985 ×2; C1776; 36415; 80048; 96361; 96365; 96366; 97110; 97162; 97530; 73501; 85018; 85610; G0378; J0171; J0690; J1100; J2405; J2704; J3010

== ENCOUNTER 2022-02-23 10:59 | Outpatient (CLI) | payer MEDICARE, SELFPAY ==
--- NOTE | 2022-02-23 10:45 | DI.RAD_ITS ---
Exam(s) XR HIP RT 1V XR HIP LT COMPLETE AP PELVIS EXAM: XR HIP LT COMPLETE AP PELVIS and XR hip RT 1 V CLINICAL HISTORY: 1st post op bilat SARA. TECHNIQUE: 2D digital imaging was performed of the left hip. Five views were obtained. AP pelvis a nd lateral left hip views were obtained. COMPARISON: XA XR HIP LT IN OR from 02/10/2022 XA XR HIP RT IN OR from 02/10/2022 FINDINGS: BONES: No acute fracture is present. No bony destructive lesion is seen. JOINTS: The patient has bilateral total hip replacements. The orthopedic hardware appears in good po sition. SOFT TISSUE: Atherosclerosis is present. IMPRESSION: Stable bilateral THR. DATA REPOSITORY: RADIATION DOSE DELIVERED:
== END 2022-02-23 11:00 | disposition home or self-care (01) ==
LOC: DIORS 11:00
PROVIDERS: PCP Family Medicine; Referring Provider Family Medicine; Visit Provider Student in an Organized Health Care Education/Training Program
DX: Z96.643 Presence of artificial hip joint, bilateral (principal)
CPT/HCPCS: 73501; 73502

== ENCOUNTER → 2022-03-23 09:55 | Outpatient (BNVA) | payer MEDICARE, SELFPAY | PROVIDERS: PCP Family Medicine; Referring Provider Family Medicine; Visit Provider Student in an Organized Health Care Education/Training Program | DX: Z47.1 Aftercare following joint replacement surgery (principal); Z96.643 Presence of artificial hip joint, bilateral ==

== ENCOUNTER 2022-04-13 03:32 | Outpatient (CLI) | payer MEDICARE, SELFPAY | END 2022-04-13 03:33 | disposition home or self-care (01) | LOC: LOS 03:32 | PROVIDERS: PCP Family Medicine; Visit Provider Family Medicine | DX: I48.91 Unspecified atrial fibrillation (principal); Z79.01 Long term (current) use of anticoagulants | CPT/HCPCS: 36415; 85610 ==

== ENCOUNTER 2022-05-04 11:17 | Outpatient (CLI) | payer MEDICARE, SELFPAY ==
--- NOTE | 2022-05-04 11:00 | DI.RAD_ITS ---
Exam(s) XR HIP RT AP LAT ONLY EXAM: XR HIP RT AP LAT ONLY CLINICAL HISTORY: new pain of anterior groin, s/p R SARA. TECHNIQUE: 2D digital imaging was performed. COMPARISON: CR XR HIP RT 1V from 02/23/2022 FINDINGS: Two views: Continued stable appearance components of the right hip prosthesis. No fracture or loosening evident . IMPRESSION: DATA REPOSITORY: RADIATION DOSE DELIVERED:
--- NOTE | 2022-05-04 11:00 | DI.RAD_ITS ---
Exam(s) XR FINGER RT MIDDLE EXAM: XR FINGER RT MIDDLE CLINICAL HISTORY: eval RMF PIP swelling and pain. TECHNIQUE: 2D digital imaging was performed. COMPARISON: No exams were available for comparison FINDINGS: 3 views There is amputation of the 2nd-index finger at the mid aspect of proximal phalanx. No significant ac miriam findings in this region. With regards to the 3rd-middle finger, there is soft tissue swelling around the proximal half the fin beth. No fracture nor dislocation. On the lateral view there is subtle densities dorsal to the head of the proximal phalanx, possibly significant. There is no obvious skin laceration or ulcer. No gas in the soft tissues. No radiographic evidence of osteomyelitis. IMPRESSION: Soft tissue swelling. The subtle non metallic densities just dorsal to the head of the proximal phal anx. No fractures. No radiographic evidence of osteomyelitis. DATA REPOSITORY: RADIATION DOSE DELIVERED:
== END 2022-05-04 11:18 | disposition home or self-care (01) ==
LOC: DIORS 11:17
PROVIDERS: PCP Family Medicine; Referring Provider Family Medicine; Visit Provider Student in an Organized Health Care Education/Training Program
DX: M79.644 Pain in right finger(s) (principal); Z96.643 Presence of artificial hip joint, bilateral; Z47.1 Aftercare following joint replacement surgery; S76.011A Strain of muscle, fascia and tendon of right hip, initial encounter; X58.XXXA Exposure to other specified factors, initial encounter
CPT/HCPCS: 73140; 73502

== ENCOUNTER 2022-05-07 05:03 | Outpatient (CLI) | payer MEDICARE, SELFPAY ==
[2022-05-07 13:07] LABS: Prothrombin Time 36.7 sec (9.3-11.0)
== END 2022-05-07 05:04 | disposition home or self-care (01) ==
LOC: LOS 05:03
PROVIDERS: PCP Family Medicine; Visit Provider Family Medicine
DX: I48.91 Unspecified atrial fibrillation (principal)
CPT/HCPCS: 36415; 85610

== ENCOUNTER 2022-05-14 03:26 | Outpatient (CLI) | payer MEDICARE, SELFPAY ==
[2022-05-14 12:39] LABS: Prothrombin Time 38.2 sec (9.3-11.0)
[2022-05-14 12:56] LABS: INR 4.2 (0.9-1.1)
== END 2022-05-14 03:27 | disposition home or self-care (01) ==
LOC: LOS 03:26
PROVIDERS: PCP Family Medicine; Visit Provider Family Medicine
DX: I48.91 Unspecified atrial fibrillation (principal)
CPT/HCPCS: 36415; 85610

== ENCOUNTER 2022-05-19 03:02 | Outpatient (CLI) | payer MEDICARE, SELFPAY ==
[2022-05-19 12:50] LABS: INR 2.9 (0.9-1.1); Prothrombin Time 27.5 sec (9.3-11.0)
== END 2022-05-19 03:03 | disposition home or self-care (01) ==
LOC: LOS 03:02
PROVIDERS: Emergency Medicine; PCP Family Medicine; Visit Provider Family Medicine
DX: I48.91 Unspecified atrial fibrillation (principal)
CPT/HCPCS: 36415; 85610

== ENCOUNTER 2022-05-25 03:08 | Outpatient (CLI) | payer MEDICARE, SELFPAY ==
[2022-05-25 13:25] LABS: INR 1.9 (0.9-1.1); Prothrombin Time 18.5 sec (9.3-11.0)
== END 2022-05-25 03:09 | disposition home or self-care (01) ==
LOC: LOS 03:08
PROVIDERS: PCP Family Medicine; Visit Provider Family Medicine
DX: I48.91 Unspecified atrial fibrillation (principal)
CPT/HCPCS: 36415; 85610

== ENCOUNTER 2022-05-28 03:45 | Outpatient (CLI) | payer MEDICARE, SELFPAY ==
[2022-05-28 13:11] LABS: INR 2.4 (0.9-1.1); Prothrombin Time 23.1 sec (9.3-11.0)
== END 2022-05-28 03:46 | disposition home or self-care (01) ==
LOC: LOS 03:46
PROVIDERS: PCP Family Medicine; Visit Provider Family Medicine
DX: I48.91 Unspecified atrial fibrillation (principal)
CPT/HCPCS: 36415; 85610

== ENCOUNTER 2022-06-15 02:50 | Outpatient (CLI) | payer MEDICARE, SELFPAY ==
[2022-06-15 12:40] LABS: INR 2.6 (0.9-1.1); Prothrombin Time 24.8 sec (9.3-11.0)
[2022-06-15 18:02] LABS: PSA, Diagnostic 7.2 ng/mL (<=6.5)
== END 2022-06-15 02:51 | disposition home or self-care (01) ==
LOC: LOS 02:50
PROVIDERS: Urology; PCP Family Medicine; Visit Provider Family Medicine
DX: C61 Malignant neoplasm of prostate (principal); I48.91 Unspecified atrial fibrillation
CPT/HCPCS: 36415; 84153; 85610

== ENCOUNTER → 2022-06-23 09:48 | Outpatient (BNVA) | payer MEDICARE, SELFPAY | PROVIDERS: PCP Family Medicine; Referring Provider Family Medicine; Visit Provider Urology | DX: C61 Malignant neoplasm of prostate (principal) | CPT/HCPCS: 99213 ==

== ENCOUNTER 2022-06-26 03:14 | Outpatient (CLI) | payer MEDICARE, SELFPAY ==
[2022-06-26 12:47] LABS: INR 3.4 (0.9-1.1); Prothrombin Time 31.7 sec (9.3-11.0)
== END 2022-06-26 03:15 | disposition home or self-care (01) ==
LOC: LOS 03:14
PROVIDERS: Emergency Medicine; PCP Family Medicine; Visit Provider Family Medicine
DX: I48.91 Unspecified atrial fibrillation (principal); Z79.01 Long term (current) use of anticoagulants
CPT/HCPCS: 36415; 85610

== ENCOUNTER 2022-06-30 20:57 | Inpatient (IN) | payer MEDICARE, SELFPAY ==
--- NOTE | 2022-06-30 21:00 | DI.RAD_ITS ---
Exam(s) XR PORTABLE CHEST AP EXAM: XR PORTABLE CHEST AP CLINICAL HISTORY: shortness of breath TECHNIQUE: 2D digital imaging was performed. COMPARISON: CR CHEST 2 VIEWS PA,LAT from 02/27/2015 FINDINGS: The heart is mildly enlarged. There are increased interstitial markings and vascular prominence comp ared with the prior exam. No focal infiltrate or effusion visible. This may represent mild CHF. IMPRESSION: Probable mild CHF. DATA REPOSITORY: RADIATION DOSE DELIVERED:
--- NOTE | 2022-06-30 21:00 | RT.EKG_ITS ---
APPROVED REPORT Exam: Resting ECG Reason for Exam: shortness of breath Patient Location: E HR:121 bpm ECG Measurements Heart Rate 121 AXIS AL [id number] P [id number] QRSd 157 QRS 92 QT 367 T -8 QTc 522 Conclusion Atrial fibrillation...? atrial activity Ventricular bigeminy...bigeminy string>4 w/ V complexes RBBB and LPFB...QRSd >120mS, axis(90,210) ST depr, consider ischemia, inferior leads...ST <-0.10mV, II III aVF Rhythm motion artifact no clear stemi
[2022-06-30 21:05] VITALS: BP 152/88; PULSE 118; RESP 30; TEMP 37.1; O2SAT 92
--- NOTE | 2022-06-30 21:10 | W.ED.GENAD ---
Discharge Plan Disposition Patient Disposition: Admit to [facility] Condition: Serious Discharge Details Chief Complaint: SOB/SuddenOnset Clinical Impression: Shortness of breath, Pneumonia Primary Care Provider: Carlos Wray ED Provider: Emery Lopez [place] Meds and New Rx's Prescriptions: No Action triamcinolone acetonide [Nasacort] 55 mcg aerosol,spray 2 spray intranasal DAILY Qty: 16.9 2RF Rx Instructions: administer into each nostril amlodipine 5 mg tablet 5 mg PO DAILY Qty: 90 3RF gabapentin 300 mg capsule 300 mg PO HS Qty: 1 0RF Label Comments: pt. reports taking 2 pills ProAir RespiClick 90 mcg/actuation aerosol powdr breath activated 2 inh inhalation Q6H PRN (Reason: shortness of breath or wheezing) Qty: 1 2RF gabapentin 300 mg capsule 300 mg PO DAILY indomethacin 50 mg capsule 50 mg PO TID Qty: 21 0RF Rx Instructions: administer with food or milk losartan 100 mg tablet 100 mg PO DAILY Qty: 90 3RF azelastine 137 mcg (0.1 %) aerosol,spray 1 spray intranasal BID Qty: 30 2RF Rx Instructions: administer into each nostril finasteride [Proscar] 5 mg tablet 5 mg PO QAM Qty: 90 3RF metoprolol tartrate 50 mg tablet 25 mg PO BID Qty: 90 3RF warfarin 2.5 mg tablet 2.5 mg PO DIRECTED Qty: 180 4RF Protocol: Dose Management Condition: Wednesday Dose/Route: 2.5 mg Instruction: 1 x 2.5 mg tablet Condition: Wednesday Dose/Route: 2.5 mg Instruction: 1 x 2.5 mg tablet Condition: Wednesday Dose/Route: 2.5 mg Instruction: 1 x 2.5 mg tablet Condition: Wednesday Dose/Route: 5 mg Instruction: 2 x 2.5 mg tablets Condition: Dose/Route: 5 mg Instruction: 2 x 2.5 mg tablets Condition: Wednesday Dose/Route: 2.5 mg Instruction: 1 x 2.5 mg tablet Condition: Wednesday Dose/Route: 2.5 mg Instruction: 1 x 2.5 mg tablet Protocol Text: Adjustment Start Date: Wednesday06/30/22 INR Value: 3.4 INR Date: 06/26/22 Recheck Date: 07/03/22 methocarbamol 500 mg tablet 500 mg PO TID PRN (Reason: muscle spasm) Qty: 30 1RF tramadol 50 mg tablet 50 mg PO Q8H MDD 3 tabs PRN (Reason: pain) Qty: 20 0RF allopurinol 100 mg tablet 100 mg PO DAILY Qty: 90 3RF acetaminophen 500 mg capsule 1,000 mg PO Q8H PRN PRNQty: 90 0RF Medical Decision Making 82 yo male with hx of cad s/p stent in 2000, prior smoker, htn, who comes in with cc of shortness of breath since around 4am this morning and progressively worsening. States yesterday he felt well and denies having any fevers, chills, chest pain/pressure, abdominal pain. He arrives hypoxic with room air saturations in the lower 80's, speaking in 4-5 word sentences and has intermittent wet sounding cough. He has pitting edema of his legs up to the mid tibia, no calf tenderness, no wheezing but does have rhonchi at the bases bilaterally. He has no murmurs. Bedside u/s limited due to body habitus and patient moving frequently but does have b lines bilaterally, no visible pericardial effusion. His history and exam seem most consistent with a chf exacerbation, will obtain cbc, cmp, ekg/troponin, probnp, and portable chest and treat with a dose of lasix. He has no calf tenderness and no pleuritic chest pain so doubt pe, will consider cta if not improving with lasix. pt urinated and appears less dyspneic, labs show wbc of 19, probnp over 1000, negative troponin. Xray shows possible pneumonia. Will discuss with hospitalist about admission Differential Diagnosis Differential Diagnosis: chf, pneumonia, copd Medical Records Medical records reviewed: Yes I reviewed the patient's medical records. Imaging Data Radiologic Study: Attestation: I personally reviewed and interpreted this imaging study as follows: Imaging: X-Ray Radiologist's impression: IMPRESSION: Probable right lower lobe atelectasis versus early consolidation, considered less likely. Lab Data Lab results reviewed: Yes I reviewed the patient's lab results. ECG Data Attestation: I personally reviewed and interpreted this ECG (s) as follows: Prior ECG tracings: available for review Interpretation: motion artifact, afib, rate of 121, no clear stemi HPI General Mode of arrival: wheelchair. Date/Time Provider Initiated Documentation: 06/30/22 20:58. Limitations to Documentation: no limitations. Information obtained by: patient. History of Present Illness 82 year old M presents to the emergency department with the chief complaint of shortness of breath, described as moderate, Patient started experiencing this day(s) and it has been constant. No relieving factors improve symptom(s), No exacerbating factors reported . Patient notes no other symptoms.; denies chest pain and fever/chills. Patient did receive the following treatments prior to arrival, none Related Data Home Medications Medication Instructions Recorded Confirmed metoprolol tartrate 50 mg tablet 25 mg PO BID #90 tabs 10/24/20 06/23/22 warfarin 2.5 mg tablet 2.5 mg PO DIRECTED #180 tabs 07/15/21 06/23/22 azelastine 137 mcg (0.1 %) nasal 1 spray intranasal BID #30 mL 08/14/21 06/23/22 spray aerosol losartan 100 mg tablet 100 mg PO DAILY #90 tabs 08/14/21 06/23/22 triamcinolone acetonide 55 mcg 2 spray intranasal DAILY #16.9 mL 08/29/21 06/23/22 nasal spray aerosol (Nasacort) amlodipine 5 mg tablet 5 mg PO DAILY #90 tabs 10/13/21 06/23/22 methocarbamol 500 mg tablet 500 mg PO TID PRN muscle spasm #30 11/17/21 06/23/22 tabs gabapentin 300 mg capsule 300 mg PO HS #1 tab-cap 01/05/22 06/23/22 gabapentin 300 mg capsule 300 mg PO DAILY 02/02/22 06/23/22 acetaminophen 500 mg capsule 1,000 mg PO Q8H PRN PRN #90 caps 02/10/22 06/23/22 albuterol sulfate 90 mcg/actuation 2 inh inhalation Q6H PRN shortness 04/08/22 06/23/22 breath activated powder inhaler of breath or wheezing #1 ea (ProAir RespiClick) indomethacin 50 mg capsule 50 mg PO TID gout #21 caps 05/04/22 06/23/22 allopurinol 100 mg tablet 100 mg PO DAILY #90 tabs 06/15/22 06/23/22 tramadol 50 mg tablet 50 mg PO Q8H PRN pain #20 tabs 06/15/22 06/23/22 finasteride 5 mg tablet (Proscar) 5 mg PO QAM #90 tabs 06/23/22 06/23/22 Previous Rx's Medication Instructions Recorded metoprolol tartrate 50 mg tablet 25 mg PO BID #90 tabs 10/24/20 warfarin 2.5 mg tablet 2.5 mg PO DIRECTED #180 tabs 07/15/21 azelastine 137 mcg (0.1 %) nasal 1 spray intranasal BID #30 mL 08/14/21 spray aerosol losartan 100 mg tablet 100 mg PO DAILY #90 tabs 08/14/21 triamcinolone acetonide 55 mcg 2 spray intranasal DAILY #16.9 mL 08/29/21 nasal spray aerosol (Nasacort) amlodipine 5 mg tablet 5 mg PO DAILY #90 tabs 10/13/21 methocarbamol 500 mg tablet 500 mg PO TID PRN muscle spasm #30 11/17/21 tabs gabapentin 300 mg capsule 300 mg PO HS #1 tab-cap 01/05/22 acetaminophen 500 mg capsule 1,000 mg PO Q8H PRN PRN #90 caps 02/10/22 albuterol sulfate 90 mcg/actuation 2 inh inhalation Q6H PRN shortness 04/08/22 breath activated powder inhaler of breath or wheezing #1 ea (ProAir RespiClick) indomethacin 50 mg capsule 50 mg PO TID gout #21 caps 05/04/22 allopurinol 100 mg tablet 100 mg PO DAILY #90 tabs 06/15/22 tramadol 50 mg tablet 50 mg PO Q8H PRN pain #20 tabs 06/15/22 finasteride 5 mg tablet (Proscar) 5 mg PO QAM #90 tabs 06/23/22 Allergies Allergy/AdvReac Type Severity Reaction Status Date / Time tamsulosin HCl [From Flomax] AdvReac Unknown dizzy Verified 05/04/22 10:54 General Stated Complaint: SOB/SuddenOnset ARIK: 2 Review of Systems All systems reviewed & are unremarkable except as noted in HPI and below Constitutional Constitutional: Denies chills, Denies fever(s) and Denies weakness Cardiovascular Cardiovascular: Denies chest pain Gastrointestinal Gastrointestinal: Denies abdominal pain, Denies nausea and Denies vomiting Integumentary/Breasts Skin/Breast: Denies rash Neurologic Neurologic: Denies weakness PFSH All Active Problems (Updated 06/30/22 @ 22:19 by Elvin Wright) CHF exacerbation (Acute) Right lower lobe pneumonia (Acute) Strain of flexor muscle of right hip (Acute) Gout attack (Acute) History of bilateral total hip arthroplasty (Acute 02/10/22) Anticoagulated on warfarin (Chronic) A-fib; INR goal 2-3 Atherosclerosis of [place] coronary artery with angina pectoris (Chronic) stent. neg mpi 02/08 Atrial fibrillation (Chronic) remote hx, on warfarin BPH associated with nocturia (Chronic 03/13/16) Essential hypertension (Chronic 09/04/13) Hyperlipidemia (Chronic 10/18/12) Internal hemorrhoids without complication (Chronic) Tubular adenoma of colon (Chronic 03/06/14) Vertigo (Chronic 10/01/15) requires occasional [place] History of intravascular stent placement (Acute) History of amputation (Acute) finger B12 deficiency (Acute) Leukocytosis (Acute) chronic. Heme consult [facility] [place] 07/15, normal wbc-03/2021 Prostatitis (Acute) Elevated PSA (Acute) followed by Urology Gout (Chronic) 2020- 1st MP joint, uric acid. 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 reports R hand Trochanteric bursitis of right hip (08/12/15) Injected: 08/14/2019 Varicose veins of lower extremity With Edema Surgical History Amputation right index finger Colonoscopy - MAC 2004; NEG 2009; TUBULAR ADENOMA Hx of removal of cyst pt. reports paralytic cyst at base of spine Replacement of total knee joint (04/28/17) LEFT DR. ENGLISH, pt. reports bilateral Stent placement (~2000) Cardiac stent placement-Per no residual issues. Last saw cards for [facility] 01/20/22 Social History Smoking/Tobacco Use Status: Former Tobacco Use Quit Date: 06/28/01 Smoking risk assessment performed?: Yes Alcohol Intake: current Alcohol Intake frequency: holidays/special occasions only Drug use: Never Substance use type: does not use Details: pt. denies alcohol at all Household members: spouse Housing: house Number of Children: 3 current occupation: retired Current gender identity: male What is your relationship status?: Panel score (0-1 are the most socially isolated patients): 1 What type of physical activity do you participate in: none Do you feel safe at home: Yes Do you feel safe in your relationship?: Yes Exam Const Orientation: alert HENMT Head: normal to inspection Ears: external ears normal General nose exam: external nose normal Mouth: moist mucous membranes Eyes General: appearance normal, both eyes and all related structures Neck Neck: normal visual inspection Resp Effort & Inspection: cough Auscultation: no wheezes Cardio Rate: regular rate Skin General skin exam: no rashes or lesions noted Neuro General: patient alert and patient oriented x3 Extrem General: normal to inspection Psych Mental Status: mental status grossly normal Course Vital Signs Vital signs: Vital Signs Temperature 37.1 C 06/30/22 21:05 Pulse 118 H 06/30/22 21:05 Respiratory Rate 30 H 06/30/22 21:05 Blood Pressure 152/88 H 06/30/22 21:05 Pulse Oximetry 92 06/30/22 21:05 Temperature 37.1 C 06/30/22 21:05 Pulse 118 H 06/30/22 21:05 Respiratory Rate 30 H 06/30/22 21:05 Blood Pressure 152/88 H 06/30/22 21:05 Blood Pressure Position Sitting 06/30/22 21:05 Pulse Oximetry 92 06/30/22 21:05 Oxygen Delivery Method Nasal Cannula 06/30/22 21:05 Oxygen Flow Rate 6 06/30/22 21:05 Lab/Test Results Lab/Test Results: 06/30/22 21:01 Blood Blood Culture - Pending 06/30/22 21:01 Blood Blood Culture - Pending
[2022-06-30 21:12] LABS: BE (Venous) 2 mmol/L (-2-3); HCO3 (Venous) 28 mmol/L (23-28); O2 Sat (Venous) 29 %; TCO2 (Venous) 26 mmol/L (24-29); pCO2 (Venous) 56 mmHg (41-51); pH (Venous) 7.31 (7.31-7.41); pO2 (Venous) 22 mmHg
[2022-06-30 21:15] LABS: Abs Immature Grans 0.09 10^3/uL (0.0-0.06); Absolute Basophil Count 0.08 10^3/uL (0.0-0.2); Absolute Eosinophil Count 0.35 10^3/uL (0.0-0.7); Absolute Lymphocyte Count 3.26 10^3/uL (1.2-3.4); Absolute Monocyte Count 1.25 10^3/uL (0.1-0.8); Absolute Neutrophil Count 14.48 10^3/uL (1.2-6.7); Basophils % 0.4; Eosinophils % 1.8; HCT 44.4 % (40.0-50.0); HGB 13.7 g/dL (13.5-17.5); Immature Grans % 0.5; Lymphocytes % 16.7; MCH 26.1 pg (27.0-33.0); MCHC 30.9 % (32.0-36.0); MCV 85 fL (80-95); MPV 9.4 fL (8.0-11.0); Monocytes % 6.4; Neutrophils % 74.2; Platelet Count 423 10^3/uL (130-400); RBC 5.25 10^6/uL (4.36-5.78); RDW 14.6 % (11.8-14.1); WBC 19.52 10^3/uL (4.4-10.8)
[2022-06-30] MEDS: Furosemide 40 MG/4 ML VIAL IVP (21:19)
[2022-06-30 21:23] VITALS: RESP 30
[2022-06-30 21:41] LABS: ALT 21 U/L (16-63); AST 29 U/L (15-37); Albumin 4.3 g/dL (3.4-5.0); Alkaline Phosphatase 79 U/L (46-116); Anion Gap 8.1 mmol/L (3-11); BUN 15 mg/dL (7-18); Bilirubin, Total 0.5 mg/dL (0.2-1.0); CO2 27.9 mmol/L (21.0-32.0); CREATININE 0.9 mg/dL (0.70-1.30); Calcium 8.9 mg/dL (8.5-10.1); Chloride 105 mmol/L (98-107); Glucose 123 mg/dL (74-106); Magnesium 1.9 mg/dL (1.8-2.4); NT-proBNP 1060 pg/mL (<300); Potassium 3.6 mmol/L (3.5-5.1); Sodium 141 mmol/L (136-145); Total Protein 8.1 g/dL (6.4-8.2); Troponin I < 50 ng/L (<or=60)
[2022-06-30 21:51] LABS: COVID-19 PCR Negative (Negative); Influenza A PCR Negative (Negative); Influenza B PCR Negative (Negative); RSV PCR Negative (Negative)
[2022-06-30 21:52] LABS: Source Nasopharynx
--- NOTE | 2022-06-30 21:54 | DI.VRAD_ITS ---
PROCEDURE INFORMATION: Exam: XR Chest Exam date and time: 06/30/2022 9:20 PM Age: 82 years old Clinical indication: Shortness of breath TECHNIQUE: Imaging protocol: Radiologic exam of the chest. Views: 1 view. COMPARISON: CR XR SHOULDER LT COMPLETE 2+V 12/16/2020 12:02 PM FINDINGS: Lungs: The pulmonary vascularity appears at the upper limits of normal. May be some minimal increased markings at the right lung base. Pleural spaces: Unremarkable. No pleural effusion. No pneumothorax. Heart/Mediastinum: Cardiomegaly. Bones/joints: Unremarkable. IMPRESSION: Probable right lower lobe atelectasis versus early consolidation, considered less likely. Dictated and Authenticated by: Georgina Henderson MD. Ordering:JUANIS Land MD
[2022-06-30] MEDS: cefTRIAXone 2 GM/50 ML BAG IVPB (22:07)
--- NOTE | 2022-06-30 22:15 | W.PM.HP.N ---
Date of service: 06/30/22 Time of Service: 22:16 Assessment and Plan Assessment and plan (1) CHF exacerbation: Start date: 06/30/22 Status: Acute Assessment and plan: This is an 82-year-old gentleman with a history of CAD in the past but no recent events now with weight gain, increasing edema and dyspnea with oxygen needs being new. He may have an element of COPD exacerbation with a history of occasional bronchospasm but not chronically on daily inhalers. He has had no recent echocardiogram on his chart does have a history of chronic atrial fibrillation. His BNP is elevated but no comparisons available. He did respond to IV Lasix and this will be continued along with oxygen supplementation and echocardiogram will be performed in the morning. He is a full code. (2) Right lower lobe pneumonia: Start date: 06/30/22 Status: Acute Assessment and plan: Imaging suggested right lower lobe but mostly lung findings on the left. He will be covered for community-acquired pneumonia with Rocephin and doxycycline IV. Continue O2 supplementation and frequent nebulizer treatments with DuoNeb every 6 hours and albuterol every 2 hours as needed. He carries no diagnosis of COPD but has some elements of COPD with Solu-Medrol to be continued. (3) Atrial fibrillation: Status: Chronic Assessment and plan: Patient has tachycardia presently but is in respiratory distress. He is in chronic atrial fibrillation with wide-complex. Continue Coumadin therapy and monitor heart with adjustment of metoprolol if needed for better rate control during his hospital stay. (4) Hyperlipidemia: Status: Chronic Assessment and plan: Patient does not appear to be on statin and has no history of allergies to statins and therefore atorvastatin 40 mg will be initiated the patient possible new onset CHF. Troponins were negative and these will be trended. Patient is a full code. He is on Coumadin with no aspirin for now. History of Present Illness History of Present Illness Chief Complaint: Shortness of breath since morning of admission Narrative: This is an 82-year-old male patient with a history of chronic atrial fibrillation on Coumadin and hypertension as well as remote cardiac catheterization and stenting in 2000 who presents with acute onset of cough with shortness of breath and fever. His house is full of relatives from [place] visiting caring for his who is on hospice with liver cancer. He usually is fairly healthy without respiratory symptoms. The ED physician did state he is a previous smoker but does not have overt history of COPD though he does have albuterol inhalers he uses as needed. He is usually very active. He has gained weight recently with edema of his lower extremities which he did not notice as much as his family visiting. He appears to be taking care of his and ignoring some of his own medical needs. He does have back pain which is new with what sounds like a compression fracture but also has bilateral hip and bilateral knee replacements with chronic pain wearing lidocaine patches over his hips. He does take tramadol occasionally for his pain also is on gabapentin for neurological pain. He is oxygen dependent which is new and his cough has an upper airway rhonchus with the patient speaking in short sentences with his raspy cough. He is not producing much in the way of sputum but does have some production. He also has a fever which is new. He tested negative for the flu/COVID-19/RSV screens. He did have a slightly elevated BNP which has never been checked before and echocardiogram is ordered for the morning. He did receive Lasix 40 mg IV in the ED and this will be continued twice daily though he has no history of CHF. Chest x-ray suggested right lower lobe infiltrate but most of his lung findings appear to be on the left according to the nurse. Review of Systems Narrative: 13 point review of systems otherwise unrevealing or stable. Patient is a poor historian and or appear to be minimizing his on problems being overwhelmed by his 's terminal illness. PFSH All Active Problems CHF exacerbation (Acute) Right lower lobe pneumonia (Acute) Strain of flexor muscle of right hip (Acute) Gout attack (Acute) History of bilateral total hip arthroplasty (Acute 02/10/22) Anticoagulated on warfarin (Chronic) A-fib; INR goal 2-3 Atherosclerosis of [place] coronary artery with angina pectoris (Chronic) stent. neg mpi 02/08 Atrial fibrillation (Chronic) remote hx, on warfarin BPH associated with nocturia (Chronic 03/13/16) Essential hypertension (Chronic 09/04/13) Hyperlipidemia (Chronic 10/18/12) Internal hemorrhoids without complication (Chronic) Tubular adenoma of colon (Chronic 03/06/14) Vertigo (Chronic 10/01/15) requires occasional Eppley History of intravascular stent placement (Acute) History of amputation (Acute) finger B12 deficiency (Acute) Leukocytosis (Acute) chronic. Heme consult [facility] 07/15, normal wbc-03/2021 Prostatitis (Acute) Elevated PSA (Acute) followed by Urology Gout (Chronic) 2020- 1st MP joint, uric acid. 7.5 Lumbosacral radiculitis (Acute) Foot pain, left (Acute) Low back pain (Acute) Chronic pain syndrome (Chronic) 09/2021-drug contract at [facility], tramadol-for low back pain Prostate cancer (Chronic) Medical History Afib Arcus senilis BPH (benign prostatic hyperplasia) Carpal tunnel syndrome of right wrist Chronically dry eyes Coronary artery disease with angina pectoris Stent placement 2000 Elevated PSA 2007, since normalized Hematuria Hemorrhoids Left knee DJD Myositis Neutrophilic leukocytosis Osteoarthritis of left shoulder Peripheral neuropathy Sacroiliac joint dysfunction of both sides Sexual dysfunction Spinal Stenosis of Lumbar Region Tremor of both hands pt. reports R hand Trochanteric bursitis of right hip (08/12/15) Injected: 08/14/2019 Varicose veins of lower extremity With Edema Surgical History Amputation right index finger Colonoscopy - MAC 2004; NEG 2009; TUBULAR ADENOMA Hx of removal of cyst pt. reports paralytic cyst at base of spine Replacement of total knee joint (04/28/17) LEFT DR. ENGLISH, pt. reports bilateral Stent placement (~2000) Cardiac stent placement-Per no residual issues. Last saw cards for EKD 01/20/22 Social History Smoking/Tobacco Use Status: Former Tobacco Use Quit Date: 06/28/01 Smoking risk assessment performed?: Yes Alcohol Intake: current Alcohol Intake frequency: holidays/special occasions only Drug use: Never Substance use type: does not use Details: pt. denies alcohol at all Household members: spouse Housing: house Number of Children: 3 current occupation: retired Current gender identity: male What is your relationship status?: Panel score (0-1 are the most socially isolated patients): 1 What type of physical activity do you participate in: none Do you feel safe at home: Yes Do you feel safe in your relationship?: Yes Meds Allergies and Home Medications Allergies Allergy/AdvReac Type Severity Reaction Status Date / Time tamsulosin HCl [From Flomax] AdvReac Unknown dizzy Verified 05/04/22 10:54 Home Medications Medication Instructions Recorded Confirmed Type metoprolol tartrate 50 mg tablet 25 mg PO BID #90 tabs 10/24/20 06/23/22 Rx warfarin 2.5 mg tablet 2.5 mg PO DIRECTED #180 tabs 07/15/21 06/23/22 Rx azelastine 137 mcg (0.1 %) nasal 1 spray intranasal BID #30 mL 08/14/21 06/23/22 Rx spray aerosol losartan 100 mg tablet 100 mg PO DAILY #90 tabs 08/14/21 06/23/22 Rx triamcinolone acetonide 55 mcg 2 spray intranasal DAILY #16.9 mL 08/29/21 06/23/22 Rx nasal spray aerosol (Nasacort) amlodipine 5 mg tablet 5 mg PO DAILY #90 tabs 10/13/21 06/23/22 Rx methocarbamol 500 mg tablet 500 mg PO TID PRN muscle spasm #30 11/17/21 06/23/22 Rx tabs gabapentin 300 mg capsule 300 mg PO HS #1 tab-cap 01/05/22 06/23/22 Rx gabapentin 300 mg capsule 300 mg PO DAILY 02/02/22 06/23/22 History acetaminophen 500 mg capsule 1,000 mg PO Q8H PRN PRN #90 caps 02/10/22 06/23/22 Rx albuterol sulfate 90 mcg/actuation 2 inh inhalation Q6H PRN shortness 04/08/22 06/23/22 Rx breath activated powder inhaler of breath or wheezing #1 ea (ProAir RespiClick) indomethacin 50 mg capsule 50 mg PO TID gout #21 caps 05/04/22 06/23/22 Rx allopurinol 100 mg tablet 100 mg PO DAILY #90 tabs 06/15/22 06/23/22 Rx tramadol 50 mg tablet 50 mg PO Q8H PRN pain #20 tabs 06/15/22 06/23/22 Rx finasteride 5 mg tablet (Proscar) 5 mg PO QAM #90 tabs 06/23/22 06/23/22 Rx Exam Narrative Exam Narrative: General: Patient appears appropriate for age, moderately obese, alert and oriented x3 and in moderate respiratory distress with cough and raspy breathing. He is slightly tachypneic. HEENT: Normocephalic, eyes with pupils equal and reactive to light symmetrically, extraocular movement intact and sclera anicteric. Oropharynx with moist mucosa. Neck: Supple without JVD. Lungs: Raspy inspiratory crackles over the left hemithorax with decreased aeration, less dense expiratory coarse crackles and expiratory rhonchi over the right hemithorax. No expiratory wheeze but slightly increased expiratory phase. No dullness to percussion. Back: Stooped posture with tenderness over the lumbar spine with patient has recent fractures. Heart: Distant heart sounds with tachycardia and irregularly irregular rhythm. No appreciable murmur or gallop. Abdomen: Obese contour and soft but slight guarding diffusely with no focalizing guarding, no rebound. No palpable hepatosplenomegaly. Genitalia/rectal: Exam deferred. Extremities: 2-3+ pitting and nonpitting edema over the lower extremities extending up to thighs but not onto the abdomen. No clubbing or cyanosis. Capillary refill fair. Arthritic change of the joints with well-healed scars over both knees and both hips. 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 Skin: Normal color, warm and dry. Neuro: Cranial nerves II through XII gross intact, no focalizing motor deficits. Patient does have hyperesthesias over both lower extremities from his back issues. Psych: Normal affect and mood but appears slightly anxious. No abnormal thought processes. Remote and recent memory intact. Results Imaging Imaging Studies: Exam: XR Chest Exam date and time: 06/30/2022 9:20 PM Age: 82 years old Clinical indication: Shortness of breath TECHNIQUE: Imaging protocol: Radiologic exam of the chest. Views: 1 view. COMPARISON: CR XR SHOULDER LT COMPLETE 2+V 12/16/2020 12:02 PM FINDINGS: Lungs: The pulmonary vascularity appears at the upper limits of normal. May be some minimal increased markings at the right lung base. Pleural spaces: Unremarkable. No pleural effusion. No pneumothorax. Heart/Mediastinum: Cardiomegaly. Bones/joints: Unremarkable. IMPRESSION: Probable right lower lobe atelectasis versus early consolidation, considered less likely. Labs Result diagrams: 07/01/22 05:35 07/01/22 05:35 Labs: Laboratory Results - last 24 hr 06/30/22 06/30/22 06/30/22 21:05 21:05 21:05 WBC 19.52 H RBC 5.25 Hgb 13.7 Hct 44.4 MCV 85 MCH 26.1 L MCHC 30.9 L RDW 14.6 H Plt Count 423 H MPV 9.4 Immature Gran % 0.5 Neutrophils % 74.2 Lymphocytes % 16.7 Monocytes % 6.4 Eosinophils % 1.8 Basophils % 0.4 Nucleated RBC % 0.0 Absolute Neutrophils 14.48 H Absolute Lymphocytes 3.26 Absolute Monocytes 1.25 H Absolute Eosinophils 0.35 Absolute Basophils 0.08 VBG pH 7.31 VBG pCO2 56 H VBG pO2 22 VBG HCO3 28 VBG Total CO2 26 VBG O2 Saturation 29 VBG Base Excess 2 Sodium 141 Potassium 3.6 Chloride 105 Carbon Dioxide 27.9 Anion Gap 8.1 BUN 15 Creatinine 0.9 Est GFR (CKD-EPI 2020) 85.80 Glucose 123 H Calcium 8.9 Magnesium 1.9 Total Bilirubin 0.5 AST 29 ALT 21 Alkaline Phosphatase 79 Troponin I < 50 NT-Pro-B Natriuret Pep 1060 H Total Protein 8.1 Albumin 4.3 COVID-19 Source SARS-CoV-2 (PCR) Influenza Type A (PCR) Influenza Type B (PCR) RSV (PCR) 06/30/22 21:08 WBC RBC Hgb Hct MCV MCH MCHC RDW Plt Count MPV Immature Gran % Neutrophils % Lymphocytes % Monocytes % Eosinophils % Basophils % Nucleated RBC % Absolute Neutrophils Absolute Lymphocytes Absolute Monocytes Absolute Eosinophils Absolute Basophils VBG pH VBG pCO2 VBG pO2 VBG HCO3 VBG Total CO2 VBG O2 Saturation VBG Base Excess Sodium Potassium Chloride Carbon Dioxide Anion Gap BUN Creatinine Est GFR (CKD-EPI 2020) Glucose Calcium Magnesium Total Bilirubin AST ALT Alkaline Phosphatase Troponin I NT-Pro-B Natriuret Pep Total Protein Albumin COVID-19 Source Nasopharynx SARS-CoV-2 (PCR) Negative Influenza Type A (PCR) Negative Influenza Type B (PCR) Negative RSV (PCR) Negative Last Vital Signs Temp 37.1 C 06/30/22 21:05 Pulse 118 H 06/30/22 21:05 Resp 30 H 06/30/22 21:23 BP 152/88 H 06/30/22 21:05 Pulse Ox 92 06/30/22 21:05 Time Spent Time spent with Patient: >75 minutes Time was spent: preparing to see the patient(eg.review tests), obtaining and/or reviewing separately otained hiistory, ordering medications,tests, procedures and indepentently interpreting results
[2022-06-30 22:40] LABS: INR 2.6 (0.9-1.1); PTT Activated 37.4 sec (21.0-27.5); Prothrombin Time 24.4 sec (9.3-11.0)
[2022-06-30 22:55] VITALS: BP 157/72; PULSE 122; PULSE 135; PULSE 69; RESP 21; TEMP 39.1; O2SAT 96; O2SAT 97
[2022-06-30 23:01] VITALS: BP 141/49; PULSE 131; PULSE 70; RESP 38; O2SAT 97
[2022-06-30] MEDS: DOXYCYCLINE 100 MG in Normal Saline 100 ML IVPB (23:30)
[2022-06-30] MEDS: Gabapentin 300 MG CAP PO (23:32)
[2022-06-30] MEDS: Acetaminophen 325 MG TAB PO (23:32)
[2022-06-30] MEDS: Metoprolol 50 MG TAB 25 MG PO (23:33)
[2022-06-30] MEDS: Normal Saline Flush 10 ML SYR IVP (23:38)
[2022-06-30] MEDS: traMADol 50 MG TAB PO (23:48)
[2022-06-30 23:59] VITALS: PULSE 128; RESP 24; RESP 3; O2SAT 95
[2022-06-30] MEDS: Albuterol/Ipratropium 3 ML UPD VIAL UPD (23:59)
[2022-07-01] VITALS (17 sets, daily range): BP systolic 93–142; BP diastolic 44–65; PULSE 58–123; RESP 1–31; TEMP 37.1–37.9; O2SAT 92–98
[2022-07-01] MEDS: methylPREDNISolone SUCC 125 MG VIAL IVP (00:12)
[2022-07-01] MEDS: Furosemide 40 MG/4 ML VIAL IVP (00:46)
[2022-07-01] MEDS: Atorvastatin 40 MG TAB PO (00:46)
[2022-07-01 00:49] LABS: Troponin I < 50 ng/L (<or=60)
[2022-07-01] MEDS: Albuterol/Ipratropium 3 ML UPD VIAL UPD ×2 (05:43→12:47)
[2022-07-01 06:12] LABS: MCH 26.2 pg (27.0-33.0); MCHC 31.7 % (32.0-36.0); MCV 83 fL (80-95); MPV 10.1 fL (8.0-11.0); Platelet Count 355 10^3/uL (130-400); RBC 4.96 10^6/uL (4.36-5.78); RDW 14.5 % (11.8-14.1); RDW-SD 43.9 fL
[2022-07-01 06:20] LABS: WBC 29.79 10^3/uL (4.4-10.8)
[2022-07-01 06:22] LABS: INR 2.7 (0.9-1.1); Prothrombin Time 25.9 sec (9.3-11.0)
[2022-07-01 06:29] LABS: ALT 17 U/L (16-63); AST 24 U/L (15-37); Albumin 3.6 g/dL (3.4-5.0); Alkaline Phosphatase 50 U/L (46-116); Anion Gap 10.5 mmol/L (3-11); BUN 19 mg/dL (7-18); CO2 24.5 mmol/L (21.0-32.0); CREATININE 1.1 mg/dL (0.70-1.30); Calcium 9.2 mg/dL (8.5-10.1); Chloride 106 mmol/L (98-107); Estimated GFR 67.44 (mL/min/1.73m2); Glucose 135 mg/dL (74-106); Magnesium 1.6 mg/dL (1.8-2.4); Potassium 3.6 mmol/L (3.5-5.1); Sodium 141 mmol/L (136-145)
[2022-07-01 06:32] LABS: Troponin I < 50 ng/L (<or=60)
[2022-07-01] MEDS: Normal Saline Flush 10 ML SYR IVP (07:15)
--- NOTE | 2022-07-01 08:56 | PDOC.CMIN ---
- If Service Date Differs Date of service: 07/01/22 Time of Service: 08:57 Care Management Initial Assess REASON FOR HOSPITALIZATION:: CHF Exacerbation PAST MEDICAL HISTORY/PAST SURGICAL HISTORY:: All Active Problems . CHF exacerbation (Acute). Right lower lobe pneumonia (Acute). Strain of flexor muscle of right hip (Acute). Gout attack (Acute). History of bilateral total hip arthroplasty (Acute 02/10/22). Anticoagulated on warfarin (Chronic). A-fib; INR goal 2-3. Atherosclerosis of [place] coronary artery with angina pectoris (Chronic). stent. neg mpi 02/08. Atrial fibrillation (Chronic). remote hx, on warfarin. BPH associated with nocturia (Chronic 03/13/16). Essential hypertension (Chronic 09/04/13). Hyperlipidemia (Chronic 10/18/12). Internal hemorrhoids without complication (Chronic). Tubular adenoma of colon (Chronic 03/06/14). Vertigo (Chronic 10/01/15). requires occasional Eppley. History of intravascular stent placement (Acute). History of amputation (Acute). finger. B12 deficiency (Acute). Leukocytosis (Acute). chronic. Heme consult [facility] 07/15, normal wbc-03/2021. Prostatitis (Acute). Elevated PSA (Acute). followed by Urology. Gout (Chronic). 2020- 1st MP joint, uric acid. 7.5. Lumbosacral radiculitis (Acute). Foot pain, left (Acute). Low back pain (Acute). Chronic pain syndrome (Chronic). 09/2021-drug contract at [facility], tramadol-for low back pain. Prostate cancer (Chronic). Medical History . Afib. Arcus senilis. BPH (benign prostatic hyperplasia). Carpal tunnel syndrome of right wrist. Chronically dry eyes. Coronary artery disease with angina pectoris. Stent placement 2000. Elevated PSA. 2007, since normalized. Hematuria. Hemorrhoids. Left knee DJD. Myositis. Neutrophilic leukocytosis. Osteoarthritis of left shoulder. Peripheral neuropathy. Sacroiliac joint dysfunction of both sides. Sexual dysfunction. Spinal Stenosis of Lumbar Region. Tremor of both hands. pt. reports R hand. Trochanteric bursitis of right hip (08/12/15). Injected: 08/14/2019. Varicose veins of lower extremity. With Edema. Surgical History . Amputation. right index finger. Colonoscopy - MAC. 2004; NEG. 2009; TUBULAR ADENOMA. Hx of removal of cyst. pt. reports paralytic cyst at base of spine. Replacement of total knee joint (04/28/17). LEFT DR. ENGLISH, pt. reports bilateral. Stent placement (~2000). Cardiac stent placement-Per no residual issues. Last saw cards for EKD 01/20/22 PREVIOUS FUNCTIONAL STATUS/SOCIAL/FAMILY SUPPORTS:: Julio Cesar lives in a single family home in [place] with his Olga who was recently discharged home on hospice. They relocated to [place] from [place] in the , after their children were grown. Julio Cesar has 2 children and Olga has 3 and they are all still living in [place]. They have five grandchildren. Due to the distance they do not get to see their children and grandchildren very often. Julio Cesar is retired but worked at [employer] in [employer] for over 20 years. He remains very active and is independent in the community. CURRENT FUNCTIONAL STATUS:: Julio Cesar was sitting up in a chair when CM met with him. He was cordial and agreeable to conversation, engaging easily with CM. Julio Cesar talked about his Olga and how difficult it has been since she came home on hospice last week. She is no longer able to eat or drink and has been getting PO morphine for pain. Yesterday hospice started what sounds like a pump and she is now receiving parenteral analgesia. Julio Cesar shared that he does not believe she will live much longer. Olga has 3 children, one son and 2 daughters, who all live in [place]. They have all come to [place] and are staying with Julio Cesar and Olga and are providing end of life care for Olga. ADVANCE DIRECTIVES:: none on file Has patient been provided with info about the portal/API?: Yes Did the patient sign up for the portal?: No CODE STATUS:: Full Code INSURANCE COVERAGE / FINANCIAL ISSUES:: Medicare. AARP Medicare Supplement CURRENT HOME/COMMUNITY SERVICES/EQUIPMENT:: Julio Cesar uses a cane occasionally PRIMARY CARE PHYSICIAN:: Carlos Wray POTENTIAL DISCHARGE NEEDS:: follow up with community providers and plan of care PATIENT/FAMILY EDUCATION NEEDS:: review of discharge instructions, limitations, follow up plan, diet, medications, discuss Ask me Three TRANSPORTATION:: via private vehicle with family PLAN:: Anticipate Julio Cesar will be discharged home with no new services. He will follow up with his community providers and plan of care and transport with family. CM will continue to follow and assess for ongoing discharge concerns.
[2022-07-01] MEDS: Metoprolol 25 MG TAB PO ×2 (09:12→14:11)
[2022-07-01] MEDS: Furosemide 20 MG/2 ML VIAL 40 MG IVP (09:12)
[2022-07-01] MEDS: Losartan 50 MG TAB 100 MG PO (09:12)
[2022-07-01] MEDS: Gabapentin 300 MG CAP PO (09:13)
[2022-07-01] MEDS: Allopurinol 100 MG TAB PO (09:13)
[2022-07-01] MEDS: Finasteride 5 MG TAB PO (09:13)
[2022-07-01] MEDS: amLODIPine 5 MG TAB PO (09:13)
[2022-07-01] MEDS: DOXYCYCLINE 100 MG in Normal Saline 100 ML IVPB (10:52)
--- NOTE | 2022-07-01 13:24 | DSE_ITS ---
Date of service: 07/01/22 Time of Service: 13:24 DS: Diagnosis Discharge Diagnosis (1) CHF exacerbation: Status: Acute Asessment and Plan: Likely secondary to dietary intake of excessive Na. No previous h/o CHF. Also likely related to atrial fibrillation with rapid ventricular rate. Diuresed with IV lasix. Cont lasix 40mg po at home until PCP follow up. Education on Na intake given. Excessive fluid intake does not appear to be a factor. Echocardiogram read is pending. (2) Right lower lobe pneumonia: Status: Acute Asessment and Plan: Initial concern for pneumonia but radiologists read did not indicate an infiltrate or consolidation. Will not continue antibiotics. (3) Atrial fibrillation: Status: Chronic Asessment and Plan: Normalized ventricular rate. No increase in home dose of metoprolol d/t concerns that his BP could not support a higher dose. Cont Warfarin. INR 2.7. (4) Hyperlipidemia: Status: Chronic Asessment and Plan: Cont atorvastatin. (5) Discharge planning issues: Status: Acute Asessment and Plan: Patient was very eager to discharge to home. His is on Hospice and according to his son who is present, she is not expected to live past the next 24 hours. Respiratory status is good on room air. He has diuresed and will continue on lasix 40mg daily until he has a PCP follow up. His PCP can set a plan for the patient to weigh himself and administer lasix if needed. Discharge Plan Disposition Patient Disposition: Home Condition: Improving Discharge Details Reason For Visit: Acute CHF Admit Date/Time: 06/30/22 22:14 Admit Provider: Elvin Wright Attending Provider: Elvin Wright Primary Care Provider: Carlos Wray Hospital Course Hospital Course: This is an 82-year-old male patient with a history of chronic atrial fibrillation on Coumadin and hypertension as well as remote cardiac catheterization and stenting in 2000 who presents with acute onset of cough with shortness of breath and fever.? His house is full of relatives from [place] visiting caring for his who is on hospice with liver cancer.? He usually is fairly healthy without respiratory symptoms.? The ED physician did state he is a previous smoker but does not have overt history of COPD though he does have albuterol inhalers he uses as needed.? He is usually very active.? He has gained weight recently with edema of his lower extremities which he did not notice as much as his family visiting.? He appears to be taking care of his and ignoring some of his own medical needs.? His son states that he uses salt on foods routinely / doesn't limit sodium intake. He does have back pain which is new with what sounds like a compression fracture but also has bilateral hip and bilateral knee replacements with chronic pain wearing lidocaine patches over his hips.? He does take tramadol occasionally for his pain also is on gabapentin for neurological pain.? He is oxygen dependent which is new and his cough has an upper airway rhonchus with the patient speaking in short sentences with his raspy cough.? He is not producing much in the way of sputum but does have some production.? He also has a fever which is new.? He tested negative for the flu/COVID-19/RSV screens.? He did have a slightly elevated BNP which has never been checked before and echocardiogram is ordered for the morning.? He did receive Lasix 40 mg IV in the ED and this will be continued twice daily though he has no history of CHF.? Chest x-ray suggested right lower lobe infiltrate but most of his lung findings appear to be on the left according to the nurse. See Diagnosis Follow up with PCP in 1-2 weeks. Home Meds and New Rx's Prescriptions: New furosemide [Lasix] 40 mg tablet 40 mg PO DAILY Qty: 14 0RF Continued triamcinolone acetonide [Nasacort] 55 mcg aerosol,spray 2 spray intranasal DAILY Qty: 16.9 2RF Rx Instructions: administer into each nostril amlodipine 5 mg tablet 5 mg PO DAILY Qty: 90 3RF gabapentin 300 mg capsule 300 mg PO HS Qty: 1 0RF Label Comments: pt. reports taking 2 pills ProAir RespiClick 90 mcg/actuation aerosol powdr breath activated 2 inh inhalation Q6H PRN (Reason: shortness of breath or wheezing) Qty: 1 2RF gabapentin 300 mg capsule 300 mg PO DAILY indomethacin 50 mg capsule 50 mg PO TID Qty: 21 0RF Rx Instructions: administer with food or milk losartan 100 mg tablet 100 mg PO DAILY Qty: 90 3RF azelastine 137 mcg (0.1 %) aerosol,spray 1 spray intranasal BID Qty: 30 2RF Rx Instructions: administer into each nostril finasteride [Proscar] 5 mg tablet 5 mg PO QAM Qty: 90 3RF metoprolol tartrate 50 mg tablet 25 mg PO BID Qty: 90 3RF warfarin 2.5 mg tablet 2.5 mg PO DIRECTED Qty: 180 4RF Protocol: Dose Management Condition: Wednesday Dose/Route: 2.5 mg Instruction: 1 x 2.5 mg tablet Condition: Wednesday Dose/Route: 2.5 mg Instruction: 1 x 2.5 mg tablet Condition: Wednesday Dose/Route: 2.5 mg Instruction: 1 x 2.5 mg tablet Condition: Wednesday Dose/Route: 5 mg Instruction: 2 x 2.5 mg tablets Condition: Dose/Route: 5 mg Instruction: 2 x 2.5 mg tablets Condition: Wednesday Dose/Route: 2.5 mg Instruction: 1 x 2.5 mg tablet Condition: Wednesday Dose/Route: 2.5 mg Instruction: 1 x 2.5 mg tablet Protocol Text: Adjustment Start Date: Wednesday06/30/22 INR Value: 3.4 INR Date: 06/26/22 Recheck Date: 07/03/22 methocarbamol 500 mg tablet 500 mg PO TID PRN (Reason: muscle spasm) Qty: 30 1RF tramadol 50 mg tablet 50 mg PO Q8H MDD 3 tabs PRN (Reason: pain) Qty: 20 0RF allopurinol 100 mg tablet 100 mg PO DAILY Qty: 90 3RF acetaminophen 500 mg capsule 1,000 mg PO Q8H PRN PRNQty: 90 0RF Discharge Instructions Instructions: Low-Sodium Diet (DC) Activity:: Activity as Tolerated Equipment/Supplies:: No Equipment Needed Diet:: Low Sodium Discharge Orders Discharge Orders: Discharge Order (Routine); Ordered 07/01/22 Ordered By: Butch Jeff Discharge Data Discharge Date/Time-TO BE ENTERED AT DEPARTURE: 07/01/22 14:40 Discharge Comment: home with family, d/c education and instructions DS: Summary Time Spent with Patient providing and/or coordinating discharge services: Greater than 30 minutes Status at Discharge Functional status at discharge: independent ambulation Overall status at discharge: patient is progressing back to baseline Mental Status: mental status grossly normal Speech and Movement: speech and movement normal Mood: congruent mood Affect: normal affect Exam Narrative Exam Narrative: General: Sitting in chair. Pleasant, coopertive. HEENT: MMM, sclera clear. Neck: Supple without JVD. Lungs: Bilateral crackles in bases. Diminished breath sounds throughout. Heart: Distant heart sounds with irregularly irregular rhythm. No appreciable murmur or gallop. Abdomen: Obese contour. Soft, NT. Extremities:1+ pitting and nonpitting edema over the lower extremities extending up to thighs but not onto the abdomen. No clubbing or cyanosis. Capillary refill fair. Arthritic change of the joints with well-healed scars over both knees and both hips. 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 Skin: Normal color, warm and dry. Psych: Normal affect and mood but appears slightly anxious. No abnormal thought processes. A&O x 3. Psych Mental Status: mental status grossly normal Speech and Movement: speech and movement normal Mood: congruent mood Affect: normal affect DS: Data Vitals/I&O Vitals and I&O: Vital Signs Temperature 37.1 C 07/01/22 12:00 Temperature Source Temporal Artery Scan 07/01/22 12:00 Pulse 88 07/01/22 12:47 Pulse Rhythm Irregular 07/01/22 05:00 Pulse 83 07/01/22 12:01 Respiratory Rate 16 07/01/22 12:47 Respiratory Effort 07/01/22 12:00 Respiratory Depth Normal 07/01/22 12:00 Respiratory Pattern Normal 07/01/22 12:00 Blood Pressure 109/44 L 07/01/22 12:01 Blood Pressure Mean 60 07/01/22 12:01 Blood Pressure Position Supine 06/30/22 22:55 Pulse Oximetry 98 07/01/22 12:47 Oxygen Delivery Method Room Air 07/01/22 12:47 Oxygen Flow Rate 0 07/01/22 12:47 Pain Level 0 07/01/22 12:00 Intake & Output 06/30/22 07/01/22 07/01/22 23:59 11:59 23:59 Intake Total 60 / 60 400 / 650 250 / 650 Output Total 150 / 150 350 / 650 300 / 650 Balance -90 / -90 50 / 0 -50 / 0 Weight 107.7 kg 107.7 kg Intake: IV 60 / 60 100 / 200 100 / 200 Oral 300 / 450 150 / 450 Output: Urine 150 / 150 350 / 650 300 / 650 Other: Urine Color Yellow Yellow Urine Appearance Clear Clear Urine Odor Normal Normal Comment h/o BPH voids x 3 pt also spilled urinal for unmeasured amount Voiding Methods Urinal Urinal Urinal Data Completed and Pending Labs on day of discharge: Labs from last 24 hours 07/01/22 07/01/22 07/01/22 05:35 05:35 05:35 WBC 29.79 H* RBC 4.96 Hgb 13.0 L Hct 41.0 MCV 83 MCH 26.2 L MCHC 31.7 L RDW 14.5 H Plt Count 355 MPV 10.1 Immature Gran % Neutrophils % Lymphocytes % Monocytes % Eosinophils % Basophils % Nucleated RBC % Absolute Neutrophils Absolute Lymphocytes Absolute Monocytes Absolute Eosinophils Absolute Basophils PT INR APTT VBG pH VBG pCO2 VBG pO2 VBG HCO3 VBG Total CO2 VBG O2 Saturation VBG Base Excess Sodium 141 Potassium 3.6 Chloride 106 Carbon Dioxide 24.5 Anion Gap 10.5 BUN 19 H Creatinine 1.1 Est GFR (CKD-EPI 2020) 67.44 Glucose 135 H Calcium 9.2 Magnesium 1.6 L Total Bilirubin 1.0 AST 24 ALT 17 Alkaline Phosphatase 50 Troponin I < 50 NT-Pro-B Natriuret Pep Total Protein 7.0 Albumin 3.6 COVID-19 Source SARS-CoV-2 (PCR) Influenza Type A (PCR) Influenza Type B (PCR) RSV (PCR) 07/01/22 07/01/22 07/01/22 05:34 01:35 00:13 WBC RBC Hgb Hct MCV MCH MCHC RDW Plt Count MPV Immature Gran % Neutrophils % Lymphocytes % Monocytes % Eosinophils % Basophils % Nucleated RBC % Absolute Neutrophils Absolute Lymphocytes Absolute Monocytes Absolute Eosinophils Absolute Basophils PT 25.9 H INR 2.7 H APTT VBG pH VBG pCO2 VBG pO2 VBG HCO3 VBG Total CO2 VBG O2 Saturation VBG Base Excess Sodium Potassium Chloride Carbon Dioxide Anion Gap BUN Creatinine Est GFR (CKD-EPI 2020) Glucose Calcium Magnesium Total Bilirubin AST ALT Alkaline Phosphatase Troponin I Cancelled < 50 NT-Pro-B Natriuret Pep Total Protein Albumin COVID-19 Source SARS-CoV-2 (PCR) Influenza Type A (PCR) Influenza Type B (PCR) RSV (PCR) 06/30/22 06/30/22 06/30/22 21:08 21:05 21:05 WBC 19.52 H RBC 5.25 Hgb 13.7 Hct 44.4 MCV 85 MCH 26.1 L MCHC 30.9 L RDW 14.6 H Plt Count 423 H MPV 9.4 Immature Gran % 0.5 Neutrophils % 74.2 Lymphocytes % 16.7 Monocytes % 6.4 Eosinophils % 1.8 Basophils % 0.4 Nucleated RBC % 0.0 Absolute Neutrophils 14.48 H Absolute Lymphocytes 3.26 Absolute Monocytes 1.25 H Absolute Eosinophils 0.35 Absolute Basophils 0.08 PT INR APTT VBG pH 7.31 VBG pCO2 56 H VBG pO2 22 VBG HCO3 28 VBG Total CO2 26 VBG O2 Saturation 29 VBG Base Excess 2 Sodium Potassium Chloride Carbon Dioxide Anion Gap BUN Creatinine Est GFR (CKD-EPI 2020) Glucose Calcium Magnesium Total Bilirubin AST ALT Alkaline Phosphatase Troponin I NT-Pro-B Natriuret Pep Total Protein Albumin COVID-19 Source Nasopharynx SARS-CoV-2 (PCR) Negative Influenza Type A (PCR) Negative Influenza Type B (PCR) Negative RSV (PCR) Negative 06/30/22 06/30/22 21:05 20:50 WBC RBC Hgb Hct MCV MCH MCHC RDW Plt Count MPV Immature Gran % Neutrophils % Lymphocytes % Monocytes % Eosinophils % Basophils % Nucleated RBC % Absolute Neutrophils Absolute Lymphocytes Absolute Monocytes Absolute Eosinophils Absolute Basophils PT 24.4 H INR 2.6 H APTT 37.4 H VBG pH VBG pCO2 VBG pO2 VBG HCO3 VBG Total CO2 VBG O2 Saturation VBG Base Excess Sodium 141 Potassium 3.6 Chloride 105 Carbon Dioxide 27.9 Anion Gap 8.1 BUN 15 Creatinine 0.9 Est GFR (CKD-EPI 2020) 85.80 Glucose 123 H Calcium 8.9 Magnesium 1.9 Total Bilirubin 0.5 AST 29 ALT 21 Alkaline Phosphatase 79 Troponin I < 50 NT-Pro-B Natriuret Pep 1060 H Total Protein 8.1 Albumin 4.3 COVID-19 Source SARS-CoV-2 (PCR) Influenza Type A (PCR) Influenza Type B (PCR) RSV (PCR) 06/30/22 21:30 Blood Blood Culture - Pending 06/30/22 21:17 Blood Blood Culture - Pending Preliminary micro results at discharge 06/30/22 21:30 Blood Culture - Pending Blood 06/30/22 21:17 Blood Culture - Pending Blood PFSH All Active Problems (Updated 07/01/22 @ 15:30 by Butch Jeff MD) Discharge planning issues (Acute) CHF exacerbation (Acute) Right lower lobe pneumonia (Acute) Strain of flexor muscle of right hip (Acute) Gout attack (Acute) History of bilateral total hip arthroplasty (Acute 02/10/22) Anticoagulated on warfarin (Chronic) A-fib; INR goal 2-3 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 neg mpi 02/08 Atrial fibrillation (Chronic) remote hx, on warfarin BPH associated with nocturia (Chronic 03/13/16) Essential hypertension (Chronic 09/04/13) Hyperlipidemia (Chronic 10/18/12) Internal hemorrhoids without complication (Chronic) Tubular adenoma of colon (Chronic 03/06/14) Vertigo (Chronic 10/01/15) requires occasional [place] History of intravascular stent placement (Acute) History of amputation (Acute) finger B12 deficiency (Acute) Leukocytosis (Acute) chronic. Heme consult [facility] [place] 07/15, normal wbc-03/2021 Prostatitis (Acute) Elevated PSA (Acute) followed by Urology Gout (Chronic) 2020- 1st MP joint, uric acid. 7.5 Lumbosacral radiculitis (Acute) Foot pain, left (Acute) Low back pain (Acute) Chronic pain syndrome (Chronic) 09/2021-drug contract at [facility], tramadol-for low back pain Prostate cancer (Chronic) Medical History Afib Arcus senilis BPH (benign prostatic hyperplasia) Carpal tunnel syndrome of right wrist Chronically dry eyes Coronary artery disease with angina pectoris Stent placement 2000 Elevated PSA 2007, since normalized Hematuria Hemorrhoids Left knee DJD Myositis Neutrophilic leukocytosis Osteoarthritis of left shoulder Peripheral neuropathy Sacroiliac joint dysfunction of both sides Sexual dysfunction Spinal Stenosis of Lumbar Region Tremor of both hands pt. reports R hand Trochanteric bursitis of right hip (08/12/15) Injected: 08/14/2019 Varicose veins of lower extremity With Edema Surgical History Amputation right index finger Colonoscopy - MAC 2004; NEG 2009; TUBULAR ADENOMA Hx of removal of cyst pt. reports paralytic cyst at base of spine Replacement of total knee joint (04/28/17) LEFT DR. ENGLISH, pt. reports bilateral Stent placement (~2000) Cardiac stent placement-Per no residual issues. Last saw cards for [facility] 01/20/22 Social History Smoking/Tobacco Use Status: Former Tobacco Use Quit Date: 06/28/01 Smoking risk assessment performed?: Yes Alcohol Intake: current Alcohol Intake frequency: holidays/special occasions only Drug use: Never Substance use type: does not use Details: pt. denies alcohol at all Household members: spouse Housing: house Number of Children: 3 current occupation: retired Current gender identity: male What is your relationship status?: Panel score (0-1 are the most socially isolated patients): 1 What type of physical activity do you participate in: none Do you feel safe at home: Yes Do you feel safe in your relationship?: Yes Time Spent with Patient Time Spent with Patient: <45 minutes Time was spent: preparing to see the patient(eg.review tests), obtaining and/or reviewing separately otained hiistory, indepentently interpreting results, counseling the patient and care coordination
== END 2022-07-01 14:40 | disposition home or self-care (01) | DRG 194 ==
LOC: ER 22:45 → ICU 07-01 02:06
PROVIDERS: Admitting Provider Family Medicine; Emergency Provider Emergency Medicine; PCP Family Medicine; Visit Provider Family Medicine
DX: J18.9 Pneumonia, unspecified organism (principal); I48.20 Chronic atrial fibrillation, unspecified; E78.5 Hyperlipidemia, unspecified; Z79.01 Long term (current) use of anticoagulants; I11.0 Hypertensive heart disease with heart failure; I50.9 Heart failure, unspecified; G89.29 Other chronic pain; I25.119 Atherosclerotic heart disease of native coronary artery with unspecified angina pectoris; N40.1 Benign prostatic hyperplasia with lower urinary tract symptoms; R35.1 Nocturia; K64.8 Other hemorrhoids; E53.8 Deficiency of other specified B group vitamins; M10.9 Gout, unspecified; M54.50 Low back pain, unspecified; M54.16 Radiculopathy, lumbar region; Z96.653 Presence of artificial knee joint, bilateral; Z96.643 Presence of artificial hip joint, bilateral; Z79.899 Other long term (current) drug therapy; Z95.5 Presence of coronary angioplasty implant and graft; Z87.891 Personal history of nicotine dependence; E66.9 Obesity, unspecified; Z68.32 Body mass index [BMI] 32.0-32.9, adult
CPT/HCPCS: 36415; 80053; 82805; 85027; 87040; 87077; 87637; 93005; 96365; 96375; 97110; 97140; 99285; 71045; 83735; 83880; 84484; 85025; 85610; 85730; 93010; 93306; 94640; 94667; 99222; 99239; J1940; J1941; J2930; J7620

== ENCOUNTER → 2022-07-06 14:09 | Outpatient (BNVA) | payer MEDICARE, SELFPAY | PROVIDERS: PCP Family Medicine; Referring Provider Family Medicine; Visit Provider Student in an Organized Health Care Education/Training Program | DX: Z96.643 Presence of artificial hip joint, bilateral (principal) | CPT/HCPCS: 99213 ==

== ENCOUNTER 2022-07-15 03:26 | Outpatient (CLI) | payer MEDICARE, SELFPAY ==
[2022-07-15 13:00] LABS: INR 1.8 (0.9-1.1); Prothrombin Time 17.1 sec (9.3-11.0)
== END 2022-07-15 03:27 | disposition home or self-care (01) ==
LOC: LOS 03:26
PROVIDERS: PCP Family Medicine; Visit Provider Family Medicine
DX: I48.91 Unspecified atrial fibrillation (principal)
CPT/HCPCS: 36415; 85610

== ENCOUNTER 2022-07-21 16:55 | Outpatient (CLI) | payer MEDICARE, SELFPAY ==
--- NOTE | 2022-07-21 15:33 | DI.RAD_ITS ---
Exam(s) XR CHEST 2V PA LATERAL EXAM: XR CHEST 2V PA LATERAL CLINICAL HISTORY: Shortness of breath I50.9 HEART FAILURE. TECHNIQUE: 2D digital imaging was performed. COMPARISON: CR,XR XR PORTABLE CHEST AP from 06/30/2022 FINDINGS: 2 views: Heart size is upper normal. The mediastinum is not widened. Lungs are clear. No infiltrates nor pleural effusions. IMPRESSION: No acute pulmonary findings. DATA REPOSITORY: RADIATION DOSE DELIVERED:
== END 2022-07-21 17:15 ==
LOC: DI 16:56
PROVIDERS: PCP Family Medicine; Visit Provider Nurse Practitioner Family
DX: I50.9 Heart failure, unspecified (principal); R06.02 Shortness of breath
CPT/HCPCS: 71046

== ENCOUNTER 2022-07-22 11:55 | Outpatient (CLI) | payer MEDICARE, SELFPAY ==
[2022-07-22 09:36] LABS: Abs Immature Grans 0.11 10^3/uL (0.0-0.06); Absolute Basophil Count 0.12 10^3/uL (0.0-0.2); Absolute Eosinophil Count 0.38 10^3/uL (0.0-0.7); Absolute Lymphocyte Count 2.11 10^3/uL (1.2-3.4); Absolute Monocyte Count 1.64 10^3/uL (0.1-0.8); Basophils % 0.9; Eosinophils % 2.9; HCT 41.9 % (40.0-50.0); HGB 12.9 g/dL (13.5-17.5); Immature Grans % 0.8; Lymphocytes % 16.1; MCH 25.9 pg (27.0-33.0); MCHC 30.8 % (32.0-36.0); MCV 84 fL (80-95); MPV 9.1 fL (8.0-11.0); Monocytes % 12.5; Neutrophils % 66.8; Platelet Count 513 10^3/uL (130-400); RBC 4.99 10^6/uL (4.36-5.78); RDW 14.6 % (11.8-14.1)
[2022-07-22 09:42] LABS: Absolute Neutrophil Count 8.75 10^3/uL (1.2-6.7)
[2022-07-22 09:46] LABS: INR 1.5 (0.9-1.1); Prothrombin Time 14.8 sec (9.3-11.0)
[2022-07-22 09:57] LABS: Anion Gap 7.3 mmol/L (3-11); BUN 16 mg/dL (7-18); CO2 28.7 mmol/L (21.0-32.0); Calcium 9.3 mg/dL (8.5-10.1); Chloride 103 mmol/L (98-107); Estimated GFR 75.61 (mL/min/1.73m2); Glucose 102 mg/dL (74-106); Potassium 3.8 mmol/L (3.5-5.1); Sodium 139 mmol/L (136-145)
[2022-07-22 10:15] LABS: Diff Comment Agrees w/ Instrument; RBC Morphology Normal
== END 2022-07-22 11:56 | disposition home or self-care (01) ==
PROVIDERS: Nurse Practitioner Family; PCP Family Medicine; Visit Provider Emergency Medicine
DX: I50.9 Heart failure, unspecified (principal); I48.91 Unspecified atrial fibrillation; J06.9 Acute upper respiratory infection, unspecified; Z79.01 Long term (current) use of anticoagulants
CPT/HCPCS: 36415; 80048; 85025; 85610

== ENCOUNTER 2022-07-31 01:16 | Outpatient (CLI) | payer MEDICARE, SELFPAY ==
[2022-07-31 23:31] LABS: PSA, Diagnostic 0.2 ng/mL (<=6.5)
== END 2022-07-31 01:17 | disposition home or self-care (01) ==
LOC: LOS 01:16
PROVIDERS: PCP Family Medicine; Visit Provider Family Medicine
DX: C61 Malignant neoplasm of prostate (principal)
CPT/HCPCS: 36415; 84153

== ENCOUNTER 2022-08-19 02:35 | Outpatient (CLI) | payer MEDICARE, SELFPAY ==
[2022-08-19 22:11] LABS: INR 2.6 Ratio (0.9-1.1)
== END 2022-08-19 02:36 | disposition home or self-care (01) ==
LOC: LOS 02:35
PROVIDERS: PCP Family Medicine; Visit Provider Family Medicine
DX: I48.91 Unspecified atrial fibrillation (principal); Z79.01 Long term (current) use of anticoagulants
CPT/HCPCS: 36415; 85610

== ENCOUNTER 2022-08-26 02:55 | Outpatient (CLI) | payer MEDICARE, SELFPAY ==
[2022-08-26 12:30] LABS: INR 1.9 (0.9-1.1); Prothrombin Time 19.3 sec (9.3-11.0)
== END 2022-08-26 02:56 | disposition home or self-care (01) ==
LOC: LOS 02:55
PROVIDERS: PCP Family Medicine; Visit Provider Family Medicine
DX: I48.91 Unspecified atrial fibrillation (principal); Z79.01 Long term (current) use of anticoagulants
CPT/HCPCS: 36415; 85610

== ENCOUNTER 2022-09-02 02:47 | Outpatient (CLI) | payer MEDICARE, SELFPAY ==
[2022-09-02 12:38] LABS: INR 2.6 (0.9-1.1); Prothrombin Time 26.4 sec (9.3-11.0)
== END 2022-09-02 02:48 | disposition home or self-care (01) ==
LOC: LOS 02:47
PROVIDERS: PCP Family Medicine; Visit Provider Family Medicine
DX: I48.91 Unspecified atrial fibrillation (principal); Z79.01 Long term (current) use of anticoagulants
CPT/HCPCS: 36415; 85610